=== PATIENT | female | born 1945 | race Caucasian/White ===

== ENCOUNTER 2018-05-29 12:46 | Emergency (ER) | payer MEDICARE, SELFPAY ==
[2018-05-29 12:47] VITALS: BP 183/89; PULSE 77; RESP 16; TEMP 37.1; O2SAT 99; BMI 27.1
[2018-05-29] MEDS: 0.9% Normal Saline 1,000 ML 1000 ML IV (13:33)
[2018-05-29] MEDS: Ondansetron 4 MG/2 ML Vial IV (13:33)
[2018-05-29 13:38] LABS: Anion Gap 7 (5-15); BUN 18 mg/dL (7-18); BUN/Creat Ratio 19.9 RATIO (10-20); Calcium,Total 9.1 mg/dL (8.5-10.1); Chloride 101 mmol/L (98-107); Creatinine, Serum 0.91 mg/dL (0.55-1.02); EST Glomerular Filtration Rate 65 mL/min (>60); Est Glom Filt Rate - Afr Amer 78 mL/min (>60); Estimated Creatinine Clearance 43.55 ml/min; Glucose 102 mg/dL (74-106); Potassium 3.4 mmol/L (3.5-5.1); Sodium Level 138 mmol/L (136-145)
[2018-05-29 14:46] VITALS: BP 189/90; PULSE 77; RESP 16; O2SAT 97
--- NOTE | 2018-05-29 14:47 | ED.RN ---
PT REPORTS BEING NERVOUS AND DID NOT TAKE BP MED THIS AM D/T VOMITING- DR ESPINOZA NOTIFIED.
--- NOTE | 2018-05-29 15:45 | ED.DCSUM_ITS ---
- ER Visit Summary Date of Service: 05/29/18 Chief Complaint: Patient presents with abdominal pain, nausea and vomiting and diarrhea that started 3 days ago History of Present Illness: The patient is a 73 F who presents with abdominal pain associated with nausea, vomiting diarrhea that started 3 days ago. She was seen in urgent care earlier today. She was treated with Zofran ODT. She presents because she has had persistent vomiting. She does complain of thirst, dry mouth and orthostatic symptoms. She denies fever or chills. She has had no ill contacts. She has not eaten anything that tasted tainted. She denies any ocular, visual auditory symptoms. She denies any cardiorespiratory symptoms. She does report decreased urine. She denies dysuria, frequency, urgency or hematuria. She denies flank pain. She denies any skin lesions. [place]. She requested short course of Paxil since she forgot her prescription at home. Physical Examination: Pleasant elderly woman. Vital signs are noted. HEENT exam is remarkable dry mucosa and tongue. Heart is regular without murmur, gallop or rub. S1 and S2 are normal. Lungs are clear to auscultation with good movement of air bilaterally. Abdomen soft with hypoactive bowel sounds otherwise unremarkable. She is alert oriented with a nonfocal neurologic exam. There is no skin lesions noted. There is no joint pain or swelling. Test Results: BMP is remarkable for a potassium of 3.4 which is insignificant. Emergency Department Course and Treatment: IV was established and she was treated with IV Zofran. She is passed p.o. challenge. Treatment Plan: Discharged to home with prescription for Paxil Disposition: Discharged to home with friend Impression: 1. Abdominal pain with nausea, vomiting diarrhea 2. Mild dehydration 3. Prescription refill This note was generated with [employer] dictation software. It may contain incorrect words, spelling, and punctuation that were not noted in review of the chart prior to signing ED Disposition - Plan for ED Patient: Disposition: Home or Assisted Living Chief Complaint: Nausea/Vomiting/Diarrhea Instructions: ED Vomiting Diarrhea Nonspecific Ad Prescriptions: Paroxetine HCl [Paxil] 30 mg PO DAILY #7 tab Referrals: [facility] Doctor,Out of [Primary Care Provider] -
[2018-05-29 15:51] VITALS: BP 167/92; PULSE 94; RESP 18; O2SAT 97
== END 2018-05-29 15:51 | disposition home or self-care (01) ==
PROVIDERS: Emergency Provider Emergency Medicine
DX: R10.9 Unspecified abdominal pain (principal); R11.2 Nausea with vomiting, unspecified; R19.7 Diarrhea, unspecified; E86.0 Dehydration; Z76.0 Encounter for issue of repeat prescription
CPT/HCPCS: 80048; 99283; J7030; J2405

== ENCOUNTER → 2020-10-08 11:01 | Outpatient (CLI) | payer MEDICARE, SELFPAY ==
[2020-10-08 12:47] LABS: Absolute Lymphocyte Count 1.68 X10^3/uL (0.83-4.51); Absolute Neutrophil Count 2.7 X10^3/uL (2.0-7.7); Basophil# 0.02 X10^3/uL; Basophil% 0.4 % (0-1); Eosinophil# 0.15 X10^3/uL; Hematocrit 38.5 % (37-47); Hemoglobin 12.3 g/dL (12.0-15.0); Lymphocyte # 1.68 X10^3/ul (4.0); Lymphocyte % 33.7 % (19-41); Mean Corp Hgb Conc 31.9 g/dL (32-36); Mean Corpuscular Hgb 29.8 pg (27.0-32.0); Mean Corpuscular Volume 93.2 fL (81-99); Mean Platelet Vol. 8.9 fl (6.2-12.0); Monocyte# 0.45 X10^3/uL; NRBC Flagged by Analyzer 0 % (0-5); Neutrophil # 2.67 X10^3/uL (2.7-7.7); Neutrophil % 53.7 % (47-70); Platelet Count 397 K/mm3 (150-450); RBC Distribution Width CV 13.3 % (11.6-14.6); RBC Distribution Width SD 45.1 fl (35.1-43.9); Red Blood Count 4.13 M/mm3 (4.2-5.4)
[2020-10-08 13:10] LABS: ALB/GLOB Ratio 0.9 RATIO (0.9-2.4); AST(SGOT) 21 U/L (15-37); Alanine Aminotransfer ALT/SGPT 35 U/L (13-56); Albumin, Serum 3.4 g/dL (3.2-5.0); Alkaline Phosphatase 51 U/L (45-117); Anion Gap 6 (5-15); BUN 18 mg/dL (7-18); BUN/Creat Ratio 18.9 RATIO (10-20); Calcium,Total 9.2 mg/dL (8.5-10.1); Chloride 107 mmol/L (98-107); Cholesterol 198 mg/dL (200); Creatinine, Serum 0.95 mg/dL (0.55-1.02); EST Glomerular Filtration Rate 61 mL/min (>60); Est Glom Filt Rate - Afr Amer 73 mL/min (>60); Globulin 3.9 g/dL (2.2-4.2); Glucose 78 mg/dL (74-106); High Density Lipoprotein 45 mg/dL; Potassium 3.7 mmol/L (3.5-5.1); Protein, Total 7.3 g/dL (6.4-8.2); Sodium Level 141 mmol/L (136-145); Triglycerides 180 mg/dL; Very Low Density Lipoprotein 36 mg/dL (5-40)
== END ==
PROVIDERS: PCP Family Medicine; Referring Provider Family Medicine; Visit Provider Family Medicine
DX: E78.1 Pure hyperglyceridemia (principal); I10 Essential (primary) hypertension
CPT/HCPCS: 36415; 80053; 80061; 84443; 85025

== ENCOUNTER → 2020-11-01 15:25 | Outpatient (CLI) | payer MEDICARE, SELFPAY ==
[2020-11-01 17:08] LABS: Absolute Lymphocyte Count 1.99 X10^3/uL (0.83-4.51); Absolute Neutrophil Count 3.9 X10^3/uL (2.0-7.7); Basophil# 0.02 X10^3/uL; Basophil% 0.3 % (0-1); Eosinophil# 0.27 X10^3/uL; Eosinophils% 3.9 % (0-5); Hematocrit 40.1 % (37-47); Hemoglobin 12.8 g/dL (12.0-15.0); Lymphocyte # 1.99 X10^3/ul (4.0); Lymphocyte % 29.1 % (19-41); Mean Corp Hgb Conc 31.9 g/dL (32-36); Mean Corpuscular Hgb 29.2 pg (27.0-32.0); Mean Corpuscular Volume 91.3 fL (81-99); Mean Platelet Vol. 8.7 fl (6.2-12.0); Monocyte# 0.69 X10^3/uL; Monocyte% 10.1 % (0-10); NRBC Flagged by Analyzer 0 % (0-5); Neutrophil # 3.86 X10^3/uL (2.7-7.7); Neutrophil % 56.5 % (47-70); Platelet Count 403 K/mm3 (150-450); RBC Distribution Width CV 13.2 % (11.6-14.6); RBC Distribution Width SD 44.6 fl (35.1-43.9); Red Blood Count 4.39 M/mm3 (4.2-5.4); White Blood Count 6.8 K/mm3 (4.4-11.0)
[2020-11-01 17:23] LABS: ALB/GLOB Ratio 0.9 RATIO (0.9-2.4); AST(SGOT) 22 U/L (15-37); Alanine Aminotransfer ALT/SGPT 38 U/L (13-56); Albumin, Serum 3.5 g/dL (3.2-5.0); Alkaline Phosphatase 52 U/L (45-117); Anion Gap 7 (5-15); BUN 32 mg/dL (7-18); Calcium,Total 9.3 mg/dL (8.5-10.1); Chloride 104 mmol/L (98-107); EST Glomerular Filtration Rate 57 mL/min (>60); Est Glom Filt Rate - Afr Amer 69 mL/min (>60); Glucose 91 mg/dL (74-106); Potassium 3.6 mmol/L (3.5-5.1); Protein, Total 7.5 g/dL (6.4-8.2); Sodium Level 141 mmol/L (136-145); Thyroid Stim Hormone (TSH) 0.99 uIU/mL (0.358-3.74)
[2020-11-02 10:04] LABS: Hepatitis C Antibody Non-Reactive (Nonreactive); Vitamin D,25 Hydroxy 23.9 ng/mL
== END ==
PROVIDERS: PCP Family Medicine; Visit Provider Family Medicine Geriatric Medicine
DX: E55.9 Vitamin D deficiency, unspecified (principal); I10 Essential (primary) hypertension; Z13.89 Encounter for screening for other disorder
CPT/HCPCS: 36415; 80053; 82306; 84443; 85025; 86803

== ENCOUNTER → 2020-12-09 16:39 | Outpatient (CLI) | payer MEDICARE, SELFPAY ==
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
[2020-12-09 17:18] LABS: Absolute Lymphocyte Count 1.88 X10^3/uL (0.83-4.51); Basophil# 0.03 X10^3/uL; Basophil% 0.4 % (0-1); Eosinophil# 0.27 X10^3/uL; Hemoglobin 13.6 g/dL (12.0-15.0); Lymphocyte # 1.88 X10^3/ul (4.0); Lymphocyte % 27.5 % (19-41); Mean Corp Hgb Conc 30.9 g/dL (32-36); Mean Corpuscular Volume 90.7 fL (81-99); Mean Platelet Vol. 8.4 fl (6.2-12.0); Monocyte# 0.64 X10^3/uL; Monocyte% 9.4 % (0-10); NRBC Flagged by Analyzer 0 % (0-5); Neutrophil % 58.6 % (47-70); Platelet Count 364 K/mm3 (150-450); RBC Distribution Width CV 12.9 % (11.6-14.6); RBC Distribution Width SD 42.9 fl (35.1-43.9); Red Blood Count 4.85 M/mm3 (4.2-5.4); White Blood Count 6.8 K/mm3 (4.4-11.0)
[2020-12-09 17:26] LABS: ALB/GLOB Ratio 0.8 RATIO (0.9-2.4); AST(SGOT) 19 U/L (15-37); Alanine Aminotransfer ALT/SGPT 32 U/L (13-56); Albumin, Serum 3.7 g/dL (3.2-5.0); Alkaline Phosphatase 78 U/L (45-117); Anion Gap 5 (5-15); BUN 17 mg/dL (7-18); BUN/Creat Ratio 19.7 RATIO (10-20); Calcium,Total 9.5 mg/dL (8.5-10.1); Chloride 104 mmol/L (98-107); Creatinine, Serum 0.86 mg/dL (0.55-1.02); EST Glomerular Filtration Rate 68 mL/min (>60); Est Glom Filt Rate - Afr Amer 82 mL/min (>60); Globulin 4.4 g/dL (2.2-4.2); Glucose 94 mg/dL (74-106); Potassium 3.6 mmol/L (3.5-5.1); Protein, Total 8.1 g/dL (6.4-8.2); Sodium Level 138 mmol/L (136-145)
== END ==
LOC: POLAB3 16:40 → RAD 16:54
PROVIDERS: PCP Family Medicine Geriatric Medicine; Referring Provider Family Medicine Geriatric Medicine; Visit Provider Family Medicine Geriatric Medicine
DX: K56.41 Fecal impaction (principal); R11.0 Nausea; N39.0 Urinary tract infection, site not specified
CPT/HCPCS: 36415; 74019; 80053; 85025; 87086

== ENCOUNTER → 2021-03-30 | Outpatient (CLI) | payer MEDICARE, SELFPAY | END | disposition home or self-care (01) | LOC: POLAB3 15:38 → LABSPEC 15:39 | PROVIDERS: PCP Family Medicine Geriatric Medicine; Visit Provider Family Medicine Geriatric Medicine | DX: N39.0 Urinary tract infection, site not specified (principal) | CPT/HCPCS: 87086; 87088 ==

== ENCOUNTER → 2021-05-03 11:55 | Outpatient (CLI) | payer MEDICARE, SELFPAY ==
[2021-05-03 17:05] LABS: Absolute Lymphocyte Count 2.33 X10^3/uL (0.83-4.51); Absolute Neutrophil Count 8.5 X10^3/uL (2.0-7.7); Basophil# 0.04 X10^3/uL; Basophil% 0.3 % (0-1); Eosinophil# 0.07 X10^3/uL; Eosinophils% 0.6 % (0-5); Hematocrit 40.4 % (37-47); Hemoglobin 13.1 g/dL (12.0-15.0); Lymphocyte # 2.33 X10^3/ul (0.83-4.51); Lymphocyte % 19.7 % (19-41); Mean Corp Hgb Conc 32.4 g/dL (32-36); Mean Corpuscular Hgb 29.8 pg (27.0-32.0); Mean Corpuscular Volume 91.8 fL (81-99); Mean Platelet Vol. 8.8 fl (6.2-12.0); Monocyte# 0.81 X10^3/uL; Monocyte% 6.8 % (0-10); NRBC Flagged by Analyzer 0 % (0-5); Neutrophil # 8.54 X10^3/uL (2.7-7.7); Neutrophil % 72.1 % (47-70); Platelet Count 392 K/mm3 (150-450); RBC Distribution Width CV 13.7 % (11.6-14.6); RBC Distribution Width SD 46.5 fl (35.1-43.9); White Blood Count 11.9 K/mm3 (4.4-11.0)
[2021-05-03 17:20] LABS: Vitamin D,25 Hydroxy 28.2 ng/mL
[2021-05-03 17:25] LABS: ALB/GLOB Ratio 0.8 RATIO (0.9-2.4); AST(SGOT) 20 U/L (15-37); Alanine Aminotransfer ALT/SGPT 30 U/L (13-56); Albumin, Serum 3.4 g/dL (3.2-5.0); Alkaline Phosphatase 69 U/L (45-117); Anion Gap 11 (5-15); BUN 32 mg/dL (7-18); BUN/Creat Ratio 28.8 RATIO (10-20); Calcium,Total 8.9 mg/dL (8.5-10.1); Chloride 105 mmol/L (98-107); Cholesterol 257 mg/dL (200); Creatinine, Serum 1.11 mg/dL (0.55-1.02); EST Glomerular Filtration Rate 51 mL/min (>60); Est Glom Filt Rate - Afr Amer 61 mL/min (>60); Glucose 103 mg/dL (74-106); High Density Lipoprotein 50 mg/dL; Protein, Total 7.4 g/dL (6.4-8.2); Sodium Level 140 mmol/L (136-145); Thyroid Stim Hormone (TSH) 0.93 uIU/mL (0.358-3.74); Triglycerides 255 mg/dL; Very Low Density Lipoprotein 51 mg/dL (5-40)
== END ==
PROVIDERS: PCP Family Medicine Geriatric Medicine; Visit Provider Family Medicine Geriatric Medicine
DX: E55.9 Vitamin D deficiency, unspecified (principal); I10 Essential (primary) hypertension
CPT/HCPCS: 36415; 80053; 80061; 82306; 84443; 85025

== ENCOUNTER → 2021-06-20 10:22 | Outpatient (CLI) | payer MEDICARE, SELFPAY | PROVIDERS: PCP Family Medicine Geriatric Medicine; Referring Provider Family Medicine Geriatric Medicine; Visit Provider Family Medicine Geriatric Medicine | DX: R06.89 Other abnormalities of breathing (principal) | CPT/HCPCS: 87635; 87804; 87807; C9803; U0005; U0003 ==

== ENCOUNTER → 2021-08-18 12:51 | Outpatient (CLI) | payer MEDICARE, SELFPAY | PROVIDERS: PCP Family Medicine Geriatric Medicine; Referring Provider Family Medicine Geriatric Medicine; Visit Provider Family Medicine Geriatric Medicine | DX: R68.83 Chills (without fever) (principal) | CPT/HCPCS: 87635; 87804; 87807; C9803; U0005; U0003 ==

== ENCOUNTER → 2021-09-26 10:09 | Outpatient (CLI) | payer MEDICARE, SELFPAY ==
[2021-09-26 12:05] LABS: Absolute Lymphocyte Count 1.89 X10^3/uL (0.83-4.51); Absolute Neutrophil Count 4.8 X10^3/uL (2.0-7.7); Basophil# 0.03 X10^3/uL; Basophil% 0.4 % (0-1); Eosinophil# 0.07 X10^3/uL; Eosinophils% 0.9 % (0-5); Hematocrit 39.4 % (37-47); Hemoglobin 13.1 g/dL (12.0-15.0); Lymphocyte # 1.89 X10^3/ul (0.83-4.51); Mean Corp Hgb Conc 33.2 g/dL (32-36); Mean Corpuscular Hgb 30.6 pg (27.0-32.0); Mean Corpuscular Volume 92.1 fL (81-99); Mean Platelet Vol. 8.5 fl (6.2-12.0); Monocyte# 0.67 X10^3/uL; Monocyte% 8.9 % (0-10); NRBC Flagged by Analyzer 0 % (0-5); Neutrophil # 4.82 X10^3/uL (2.7-7.7); Neutrophil % 63.6 % (47-70); Platelet Count 362 K/mm3 (150-450); RBC Distribution Width CV 13.4 % (11.6-14.6); RBC Distribution Width SD 45.3 fl (35.1-43.9); Red Blood Count 4.28 M/mm3 (4.2-5.4); White Blood Count 7.6 K/mm3 (4.4-11.0)
[2021-09-26 12:12] LABS: ALB/GLOB Ratio 0.7 RATIO (0.9-2.4); AST(SGOT) 17 U/L (15-37); Alanine Aminotransfer ALT/SGPT 29 U/L (13-56); Alkaline Phosphatase 85 U/L (45-117); Anion Gap 4 (5-15); BUN 24 mg/dL (7-18); BUN/Creat Ratio 25.1 RATIO (10-20); Calcium,Total 9.2 mg/dL (8.5-10.1); Chloride 102 mmol/L (98-107); Cholesterol 261 mg/dL (200); Creatinine, Serum 0.96 mg/dL (0.55-1.02); EST Glomerular Filtration Rate 60 mL/min (>60); Est Glom Filt Rate - Afr Amer 73 mL/min (>60); Globulin 4.3 g/dL (2.2-4.2); Glucose 96 mg/dL (74-106); High Density Lipoprotein 46 mg/dL; Potassium 3.5 mmol/L (3.5-5.1); Protein, Total 7.3 g/dL (6.4-8.2); Sodium Level 137 mmol/L (136-145); Triglycerides 202 mg/dL; Very Low Density Lipoprotein 40 mg/dL (5-40)
== END ==
PROVIDERS: PCP Internal Medicine; Referring Provider Internal Medicine; Visit Provider Internal Medicine
DX: I10 Essential (primary) hypertension (principal)
CPT/HCPCS: 36415; 80053; 80061; 85025

== ENCOUNTER 2021-11-16 10:45 | Outpatient (CLI) | payer MEDICARE, SELFPAY | END 2021-11-16 23:59 | disposition short-term general hospital (02) | LOC: LABSPEC 10:46 | PROVIDERS: PCP Internal Medicine; Referring Provider Nurse Practitioner Family; Visit Provider Nurse Practitioner Family | DX: J06.9 Acute upper respiratory infection, unspecified (principal) | CPT/HCPCS: 87635; U0003; U0005 ==

== ENCOUNTER → 2022-07-11 | Outpatient (CLI) | payer MEDICARE, SELFPAY ==
[2022-07-11 15:17] LABS: Vitamin D,25 Hydroxy 38.6 ng/mL
[2022-07-11 15:20] LABS: BUN 23 mg/dL (7-18); EST Glomerular Filtration Rate 57 mL/min (>60); Glucose 113 mg/dL (74-106)
[2022-07-11 15:21] LABS: Anion Gap 10 (5-15); Calcium,Total 8.9 mg/dL (8.5-10.1); Chloride 99 mmol/L (98-107); Cholesterol 251 mg/dL (200); Est Glom Filt Rate - Afr Amer 69 mL/min (>60); High Density Lipoprotein 37 mg/dL; Potassium 3.6 mmol/L (3.5-5.1); Sodium Level 137 mmol/L (136-145); Triglycerides 346 mg/dL; Very Low Density Lipoprotein 69 mg/dL (5-40)
== END | disposition home or self-care (01) ==
LOC: MFPLAB 11:30
PROVIDERS: PCP Internal Medicine; Visit Provider Family Medicine
DX: Z00.00 Encounter for general adult medical examination without abnormal findings (principal); E55.9 Vitamin D deficiency, unspecified
CPT/HCPCS: 36415; 80048; 80061; 82306

== ENCOUNTER 2022-08-08 16:40 | Emergency (ER) | payer OTHER, MEDICARE, SELFPAY ==
[2022-08-08 16:44] VITALS: BP 201/82; PULSE 72; RESP 18; TEMP 36.4; O2SAT 97; BMI 27.8
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
--- NOTE | 2022-08-08 17:29 | CM.ED ---
SANIYA noted that patient had no PCP per tracker. SANIYA went into room and introduced self. Patient voices her PCP is [place]. No other issues or concerns voiced. Swetha GUIDRY
[2022-08-08 18:02] VITALS: BP 186/78; PULSE 72; RESP 16; O2SAT 97
== END 2022-08-08 18:31 | disposition home or self-care (01) ==
PROVIDERS: Emergency Provider Emergency Medicine; Visit Provider Emergency Medicine
DX: S22.20XA Unspecified fracture of sternum, initial encounter for closed fracture (principal); E78.5 Hyperlipidemia, unspecified; V43.62XA Car passenger injured in collision with other type car in traffic accident, initial encounter
CPT/HCPCS: 71250; 93005; 99284

== ENCOUNTER → 2022-09-15 | Outpatient (CLI) | payer MEDICARE, SELFPAY ==
--- NOTE | 2022-09-15 15:41 | RAD_ITS ---
STUDY: X-RAY - SACRUM/COCCYX REASON FOR EXAM: Female, 77 years old. Sacrococcygeal pain TECHNIQUE: 3 view(s) of the sacrum and coccyx were obtained. COMPARISON: None. FINDINGS: Normal bilateral sacroiliac joints. Normal visualized sacral ala and fused sacral bodies. Normal sacrococcygeal junction with a normal angulation. Normal coccygeal segments. The presacral soft tissue structures are unremarkable. RAD/Sacrum-Coccyx min 2 Views IMPRESSION: Normal x-rays of the sacrum and coccyx. If pain persists bone scan or MRI recommended to exclude radiographically occult fracture Electronically Signed: Jeremy De Luna MD at 22:36 EST ,
== END | disposition home or self-care (01) ==
LOC: MTRAD 15:40
PROVIDERS: PCP Family Medicine; Referring Provider Family Medicine; Visit Provider Family Medicine
DX: M53.3 Sacrococcygeal disorders, not elsewhere classified (principal)
CPT/HCPCS: 72220

== ENCOUNTER → 2022-12-21 | Outpatient (CLI) | payer MEDICARE, SELFPAY ==
[2022-12-21 17:12] LABS: Absolute Lymphocyte Count 2.01 X10^3/uL (0.83-4.51); Absolute Neutrophil Count 4.5 X10^3/uL (2.0-7.7); Basophil# 0.03 X10^3/uL; Basophil% 0.4 % (0-1); Eosinophil# 0.07 X10^3/uL; Eosinophils% 0.9 % (0-5); Hematocrit 41.1 % (37-47); Hemoglobin 13.7 g/dL (12.0-15.0); Lymphocyte # 2.01 X10^3/ul (0.83-4.51); Lymphocyte % 27.1 % (19-41); Mean Corp Hgb Conc 33.3 g/dL (32-36); Mean Corpuscular Volume 90.1 fL (81-99); Monocyte# 0.77 X10^3/uL; Monocyte% 10.4 % (0-10); NRBC Flagged by Analyzer 0 % (0-5); Neutrophil % 60.8 % (47-70); Platelet Count 403 K/mm3 (150-450); RBC Distribution Width CV 13.2 % (11.6-14.6); RBC Distribution Width SD 43.6 fl (35.1-43.9); Red Blood Count 4.56 M/mm3 (4.2-5.4); White Blood Count 7.4 K/mm3 (4.4-11.0)
[2022-12-21 17:32] LABS: Vitamin D,25 Hydroxy 46.6 ng/mL
[2022-12-21 17:39] LABS: ALB/GLOB Ratio 0.9 RATIO (0.9-2.4); AST(SGOT) 30 U/L (15-37); Alanine Aminotransfer ALT/SGPT 43 U/L (13-56); Albumin, Serum 3.6 g/dL (3.2-5.0); Alkaline Phosphatase 62 U/L (45-117); Anion Gap 7 (5-15); BUN 28 mg/dL (7-18); BUN/Creat Ratio 27.2 RATIO (10-20); Calcium,Total 9.6 mg/dL (8.5-10.1); Chloride 106 mmol/L (98-107); Cholesterol 214 mg/dL (200); Creatinine, Serum 1.03 mg/dL (0.55-1.02); EST Glomerular Filtration Rate 55 mL/min (>60); Est Glom Filt Rate - Afr Amer 67 mL/min (>60); Globulin 4.1 g/dL (2.2-4.2); Glucose 118 mg/dL (74-106); High Density Lipoprotein 43 mg/dL; Potassium 3.6 mmol/L (3.5-5.1); Protein, Total 7.7 g/dL (6.4-8.2); Sodium Level 141 mmol/L (136-145); Thyroid Stim Hormone (TSH) 1.06 uIU/mL (0.358-3.74); Triglycerides 173 mg/dL; Very Low Density Lipoprotein 35 mg/dL (5-40)
== END | disposition home or self-care (01) ==
PROVIDERS: PCP Family Medicine; Visit Provider Family Medicine Geriatric Medicine
DX: R53.83 Other fatigue (principal); E78.5 Hyperlipidemia, unspecified; E55.9 Vitamin D deficiency, unspecified
CPT/HCPCS: 36415; 80053; 80061; 82306; 84443; 85025

== ENCOUNTER → 2022-12-28 | Outpatient (CLI) | payer MEDICARE, SELFPAY ==
[2022-12-28 12:59] LABS: Syphilis Antibodies Non-reactive; Vitamin B12 1058 pg/mL (211-911)
== END | disposition home or self-care (01) ==
LOC: POLAB3 11:17
PROVIDERS: PCP Family Medicine; Visit Provider Family Medicine Geriatric Medicine
DX: E53.8 Deficiency of other specified B group vitamins (principal); R41.3 Other amnesia
CPT/HCPCS: 36415; 82607; 82746; 86780

== ENCOUNTER → 2023-05-23 | Outpatient (CLI) | payer MEDICARE, SELFPAY ==
[2023-05-23 10:44] LABS: Anion Gap 5 (5-15); BUN 26 mg/dL (7-18); BUN/Creat Ratio 31.1 RATIO (10-20); Chloride 103 mmol/L (98-107); Cholesterol 229 mg/dL (200); Creatinine, Serum 0.84 mg/dL (0.55-1.02); EST Glomerular Filtration Rate 70 mL/min (>60); Est Glom Filt Rate - Afr Amer 85 mL/min (>60); Glucose 99 mg/dL (74-106); High Density Lipoprotein 39 mg/dL; Potassium 3.8 mmol/L (3.5-5.1); Sodium Level 138 mmol/L (136-145); Triglycerides 263 mg/dL; Very Low Density Lipoprotein 53 mg/dL (5-40)
== END | disposition home or self-care (01) ==
LOC: MTLAB 09:15
PROVIDERS: PCP Family Medicine; Referring Provider Family Medicine; Visit Provider Family Medicine
DX: I10 Essential (primary) hypertension (principal)
CPT/HCPCS: 36415; 80048; 80061

== ENCOUNTER 2023-05-26 11:48 | Emergency (ER) | payer MEDICARE, SELFPAY ==
[2023-05-26 11:50] VITALS: BP 169/148; PULSE 84; RESP 14; TEMP 36; O2SAT 98; BMI 29.3
[2023-05-26 12:05] VITALS: BP 138/78; PULSE 68; RESP 16; TEMP 36.1; O2SAT 98
--- NOTE | 2023-05-26 12:14 | EKG12_ITS ---
Test Reason : Blood Pressure : / mmHG Vent. Rate : 071 BPM Atrial Rate : 071 BPM P-R Int : 158 ms QRS Dur : 082 ms QT Int : 368 ms P-R-T Axes : 057 045 104 degrees QTc Int : 399 ms Normal sinus rhythm ST & T wave abnormality, consider lateral ischemia Abnormal ECG Confirmed by ZOEY RICE, CORINNE ([id number]), newspaper managing editor GUERDA WALLACE ([id number]) on 05/28/2023 12:14:12 PM Referred By: Confirmed By:CORINNE GREER MD
--- NOTE | 2023-05-26 12:20 | NURSING ---
NO OLD EKGS
--- NOTE | 2023-05-26 12:21 | ED.VIS.GI ---
HPI HPI - GI History of Present Illness Chief Complaint: Abd Pain Narrative Narrative: 78-year-old female presenting with nausea diarrhea. She states its been really bad over the last 48 hours. She describes diffuse abdominal cramping. She has not a fever but she states she feels hot. Patient denies chest pain but is having epigastric pain in addition to the other pains in her abdomen. No cough or shortness of breath. He states he has no sick contacts in the household. She does have history of GERD and gastritis. PFSH PFS Medical History Bilateral impacted cerumen Cataracts, bilateral Health care maintenance Hyperlipidemia Hypertension Obesity (BMI 30.0-34.9) URI (upper respiratory infection) Urinary incontinence Home Medications omeprazole 40 mg capsule,delayed release 40 mg PO DAILY 09/26/21 [History Last Taken Unknown] lisinopril 40 mg tablet 40 mg PO DAILY #90 tabs 01/18/22 [Rx Last Taken Unknown] paroxetine HCl 40 mg tablet 40 mg PO DAILY #60 tabs 01/23/22 [Rx Last Taken Unknown] triamterene 75 mg-hydrochlorothiazide 50 mg tablet 1 tab PO DAILY #90 tabs 05/10/22 [Rx Last Taken Unknown] ondansetron 4 mg disintegrating tablet 4 mg PO Q8H PRN PRN Nausea #14 tabs 05/26/23 [Rx Last Taken Unknown] Allergy/AdvReac Type Severity Reaction Status Date / Time No Known Allergies Allergy Verified 05/26/23 11:50 Family History Other CVA (cerebral vascular accident) Colon cancer Diabetes Heart disease Surgical History H/O: hysterectomy Social History Smoking Status: Never smoker alcohol intake: never substance use type: does not use ROS ROS ED Review of Systems ROS Unobtainable: Denies due to encephalopathy Constitutional Constitutional ED: Denies chills or fever(s) ENT ENT ED: Denies ear pain or rhinorrhea Cardiovascular Cardiovascular: Denies chest pain or palpitations Respiratory/Chest Respiratory/Chest: Denies cough or dyspnea Gastrointestinal Gastrointestinal: Reports abdominal pain, diarrhea, nausea and vomiting Genitourinary Genitourinary ED: Denies dysuria or hematuria Musculoskeletal Musculoskeletal: Denies arthralgias or back pain Integumentary Denies abscess Neurologic Neurologic: Reports headache(s); Denies paresthesias Psychiatric Psychiatric: Denies anxiety or depression EXAM Physical Exam Const Vital Signs: 05/26/23 11:50 05/26/23 12:05 05/26/23 13:40 Temperature 96.8 F L 97 F L 97.8 F Temperature Source Temporal Oral Oral Pulse Rate 84 68 80 Respiratory Rate 14 16 16 Blood Pressure 169/148 H 138/78 H 187/80 H Blood Pressure Mean 155 98 115 Pulse Ox 98 98 98 Oxygen Delivery Method Room Air Room Air Room Air Positive well nourished General Appearance ED: NAD HEENT Reports moist mucous membranes Eyes PERRL Resp normal respiratory effort and clear to auscultation bilaterally Auscultation: Negative for rales, rhonchi or wheezes Cardio regular rate and regular rhythm GI Palpation: tender epigastric and periumbilical; Negative for guarding Neuro CN's II-XII intact bilaterally Sensorium / Orientation: alert Motor Exam: strength 5/5 throughout Psych mental status grossly normal and thought process normal Skin no wounds MDM MDM MDM Narrative Medical decision making narrative: Patient presenting with nausea, vomiting, diarrhea. Differential includes gastritis, GERD, colitis, diverticulitis, UTI, pyelonephritis, pancreatitis. CBC was obtained to assess white blood cell count, hemoglobin, platelets. CMP to assess liver function, renal function, electrolytes. Lipase to assess for pancreatitis. EKG and high-sensitivity troponin to assess for ischemia or dysrhythmia. Chest x-ray to rule out pneumonia. Urinalysis to assess for UTI. Patient medicated with 4 mg of Zofran and a liter normal saline. EKG was obtained and shows normal sinus rhythm with ventricular rate of 71 bpm without sign of ischemia or ectopy. High-sensitivity troponin 12. CBC shows normal white blood cell count 8.9. Hemoglobin hematocrit are normal. Platelets normal. Renal function and electrolytes are normal with exception of a potassium of 3.1. LFTs are normal. Patient reevaluated at 1 PM she is feeling improved. Will try p.o. challenge and oral potassium supplementation. I do not believe she needs a CT scan. Patient did well with p.o. challenge. At this point I feel she can be discharged home with Zoan. She was given options on bland diet and advance as tolerated. She is to follow-up with her PCP to ensure resolution. Impression: 1. Abdominal pain 2. Nausea/vomiting 3. Diarrhea Lab Data Labs: Laboratory Results - last 24 hr 05/26/23 05/26/23 12:30 12:45 WBC 8.9 RBC 4.71 Hgb 14.0 Hct 42.5 MCV 90.2 MCH 29.7 MCHC 32.9 RDW Std Deviation 45.0 H RDW Coeff of [place] 13.5 Plt Count 334 MPV 8.3 Immature Gran % (Auto) 0.400 Neut % (Auto) 75.6 H Lymph % (Auto) 17.5 L [place] % (Auto) 5.5 Eos % (Auto) 0.8 Baso % (Auto) 0.2 Absolute Neuts (auto) 6.7 Absolute Lymphs (auto) 1.56 Nucleated RBC % 0 Sodium 138 Potassium 3.1 L Chloride 103 Carbon Dioxide 29.0 Anion Gap 6 BUN 11 Creatinine 0.86 Estim Creat Clear Calc 42.64 Est GFR (MDRD) Af Amer 83 Est GFR (MDRD) Non-Af 68 BUN/Creatinine Ratio 12.9 Glucose 119 H Calcium 8.9 Total Bilirubin 0.30 AST 20 ALT 28 Alkaline Phosphatase 84 Troponin I High Sens 12 Total Protein 7.7 Albumin 3.5 Globulin 4.2 Albumin/Globulin Ratio 0.8 L Urine Color Yellow Urine Clarity Clear Urine pH 7.0 Ur Specific [place] 1.015 Urine Protein 15 H Urine Glucose (UA) Normal Urine Ketones Negative Urine Occult Blood 50 H Urine Nitrite Negative Urine Bilirubin Negative Urine Urobilinogen Normal Ur Leukocyte Esterase Negative Urine RBC 0-5 SEEN Urine WBC 0 SEEN Ur Squamous Epith Cells 0 SEEN Urine Bacteria 0 SEEN Urine Mucus 0 SEEN Discharge Plan Triage Chief Complaint: Abd Pain ED Provider: Albert Jones Dx/Rx/DC Orders Instructions: ED Abdominal Pain Unkn Cause Fem, ED Vomiting (Adult) Prescriptions: New ondansetron 4 mg tablet,disintegrating 4 mg PO Q8H PRN PRN (Reason: Nausea) Qty: 14 0RF No Action omeprazole 40 mg capsule,delayed release(DR/EC) 40 mg PO DAILY lisinopril 40 mg tablet 40 mg PO DAILY Qty: 90 1RF paroxetine HCl 40 mg tablet 40 mg PO DAILY Qty: 60 0RF triamterene-hydrochlorothiazid 75-50 mg tablet 1 tab PO DAILY Qty: 90 1RF Primary Care Provider: Babatunde Pavon Referrals: Babatunde Pavon MD [Primary Care Provider] - Disposition Disposition: Home, Self Care
[2023-05-26] MEDS: 0.9% Normal Saline 1,000 ML 1000 ML IV (12:27)
[2023-05-26] MEDS: Ondansetron 4 MG/2 ML Vial IV (12:28)
[2023-05-26 12:47] LABS: Absolute Lymphocyte Count 1.56 X10^3/uL (0.83-4.51); Absolute Neutrophil Count 6.7 X10^3/uL (2.0-7.7); Basophil# 0.02 X10^3/uL; Basophil% 0.2 % (0-1); Eosinophil# 0.07 X10^3/uL; Eosinophils% 0.8 % (0-5); Hematocrit 42.5 % (37-47); Lymphocyte # 1.56 X10^3/ul (0.83-4.51); Lymphocyte % 17.5 % (19-41); Mean Corp Hgb Conc 32.9 g/dL (32-36); Mean Corpuscular Hgb 29.7 pg (27.0-32.0); Mean Corpuscular Volume 90.2 fL (81-99); Mean Platelet Vol. 8.3 fl (6.2-12.0); Monocyte# 0.49 X10^3/uL; Monocyte% 5.5 % (0-10); NRBC Flagged by Analyzer 0 % (0-5); Neutrophil # 6.72 X10^3/uL (2.7-7.7); Neutrophil % 75.6 % (47-70); Platelet Count 334 K/mm3 (150-450); RBC Distribution Width CV 13.5 % (11.6-14.6); Red Blood Count 4.71 M/mm3 (4.2-5.4); White Blood Count 8.9 K/mm3 (4.4-11.0)
[2023-05-26 12:55] LABS: Bacteria 0 SEEN /hpf (None Seen); Mucous, Urine 0 SEEN /hpf (<or=2+); Squamous Epithelial Cells - UA 0 SEEN /hpf (5-10); White Blood Cells 0 SEEN /hpf (0-5)
[2023-05-26 13:01] LABS: ALB/GLOB Ratio 0.8 RATIO (0.9-2.4); AST(SGOT) 20 U/L (15-37); Alanine Aminotransfer ALT/SGPT 28 U/L (13-56); Albumin, Serum 3.5 g/dL (3.2-5.0); Alkaline Phosphatase 84 U/L (45-117); Anion Gap 6 (5-15); BUN 11 mg/dL (7-18); BUN/Creat Ratio 12.9 RATIO (10-20); Calcium,Total 8.9 mg/dL (8.5-10.1); Chloride 103 mmol/L (98-107); Creatinine, Serum 0.86 mg/dL (0.55-1.02); EST Glomerular Filtration Rate 68 mL/min (>60); Est Glom Filt Rate - Afr Amer 83 mL/min (>60); Estimated Creatinine Clearance 42.64 ml/min; Globulin 4.2 g/dL (2.2-4.2); Glucose 119 mg/dL (74-106); Potassium 3.1 mmol/L (3.5-5.1); Protein, Total 7.7 g/dL (6.4-8.2); Sodium Level 138 mmol/L (136-145); Troponin-I HS 12 pg/mL (3.0-54.0)
[2023-05-26 13:04] LABS: Color, Urine Yellow (Yellow); Glucose, Dipstick Normal (Normal); Ketone-Dipstick Negative (Negative); Leukocyte Esterase-Dipstick Negative /ul (Negative); Nitrite-Dipstick Negative (Negative); Occult Blood-Urine 50 /ul (Negative); Protein-Dipstick 15 mg/dl (Negative); Specific Gravity, Urine 1.015 (1.002-1.030); Urine Bilirubin Dipstick Negative (Negative); Urine Clarity Clear (Clear); Urine Urobilinogen Normal (Normal)
[2023-05-26 13:13] LABS: Red Blood Cells-Urine 0-5 SEEN /hpf (0-5)
--- NOTE | 2023-05-26 13:34 | ED.RN ---
Patient up and ambulatory to bathroom, gait steady
[2023-05-26] MEDS: Potassium Chloride Oral Tablet 20 MEQ 40 MEQ PO (13:37)
[2023-05-26 13:40] VITALS: BP 187/80; PULSE 80; RESP 16; TEMP 36.6; O2SAT 98
--- NOTE | 2023-05-26 13:56 | ED.RN ---
IV removed intact. no bleeding at site. Ambulatory from dept., gait steady.
[2023-05-26] MEDS: proMETHazine 25 MG Tablet 12.5 MG PO (15:10)
== END 2023-05-26 15:18 | disposition home or self-care (01) ==
PROVIDERS: Emergency Provider Student in an Organized Health Care Education/Training Program; PCP Family Medicine; Visit Provider Student in an Organized Health Care Education/Training Program
DX: R10.9 Unspecified abdominal pain (principal); R11.2 Nausea with vomiting, unspecified; I10 Essential (primary) hypertension; R19.7 Diarrhea, unspecified; E78.5 Hyperlipidemia, unspecified; R51.9 Headache, unspecified
CPT/HCPCS: 80053; 81001; 84484; 85025; 93005; 96361; 96374; 99283; J7030; A4216; J2405

== ENCOUNTER → 2023-12-31 | Outpatient (CLI) | payer MEDICARE, SELFPAY ==
--- OUTSIDE RECORDS SUMMARY | 2023-12-31 09:52 | XMS RPT_ITS | CCD ---
Author Name Unknown Address [address] [place] [address] [address] [place] [address] Organization [facility] Results Test Name Value Interpretation Reference Range Facil ity Summary Purpose Family History No Family History Records Found Advance Directives No Advanced Directives Records Found Additional Source Comments INFORMATION SOURCE (unrecogn ized section and content) FOR RECORDS PERTAINING TO PATIENTS WHO ARE OR HAVE BEEN ENROLLED IN A CHEMICAL DEPENDENCY/SUBSTANCEABUSE PROGRAM, SOME INFORMATION MAY BE OMITTED. This clinical summary was aggregated from multiple sources. Caution should be exercised in using it in the provision of clinical care. This summary normalizes information from multiple sources, and as a consequence, information in this document may materially change the coding, format and clinical context of patient data. In addition, data may be omitted in some cases. CLINICAL DECISIONS SHOULD BE BASED ON THE PRIMARY CLINICAL RECORDS. [employer] provides no warranty or guarantee of the accuracy or completeness of information in this document.
[2023-12-31 10:11] LABS: Absolute Lymphocyte Count 1.99 X10^3/uL (0.83-4.51); Absolute Neutrophil Count 4.3 X10^3/uL (2.0-7.7); Basophil# 0.02 X10^3/uL; Basophil% 0.3 % (0-1); Eosinophil# 0.09 X10^3/uL; Eosinophils% 1.3 % (0-5); Hematocrit 43.4 % (37-47); Hemoglobin 14.6 g/dL (12.0-15.0); Lymphocyte # 1.99 X10^3/ul (0.83-4.51); Lymphocyte % 28.3 % (19-41); Mean Corp Hgb Conc 33.6 g/dL (32-36); Mean Corpuscular Hgb 30.2 pg (27.0-32.0); Mean Corpuscular Volume 89.7 fL (81-99); Mean Platelet Vol. 8.5 fl (6.2-12.0); Monocyte# 0.57 X10^3/uL; Monocyte% 8.1 % (0-10); NRBC Flagged by Analyzer 0 % (0-5); Neutrophil # 4.34 X10^3/uL (2.7-7.7); Neutrophil % 61.7 % (47-70); Platelet Count 336 K/mm3 (150-450); RBC Distribution Width CV 13.2 % (11.6-14.6); RBC Distribution Width SD 43.5 fl (35.1-43.9); Red Blood Count 4.84 M/mm3 (4.2-5.4)
[2023-12-31 10:32] LABS: Vitamin D,25 Hydroxy 49.5 ng/mL
[2023-12-31 10:38] LABS: ALB/GLOB Ratio 0.9 RATIO (0.9-2.4); AST(SGOT) 22 U/L (15-37); Alanine Aminotransfer ALT/SGPT 27 U/L (13-56); Albumin, Serum 3.6 g/dL (3.2-5.0); Alkaline Phosphatase 81 U/L (45-117); Anion Gap 5 (5-15); BUN 19 mg/dL (7-18); BUN/Creat Ratio 19.6 RATIO (10-20); Calcium,Total 10.1 mg/dL (8.5-10.1); Chloride 105 mmol/L (98-107); Cholesterol 275 mg/dL (200); Creatinine, Serum 0.97 mg/dL (0.55-1.02); EST Glomerular Filtration Rate 59 mL/min (>60); Est Glom Filt Rate - Afr Amer 71 mL/min (>60); Globulin 4.2 g/dL (2.2-4.2); Glucose 121 mg/dL (74-106); High Density Lipoprotein 40 mg/dL; Potassium 3.6 mmol/L (3.5-5.1); Protein, Total 7.8 g/dL (6.4-8.2); Sodium Level 138 mmol/L (136-145); Thyroid Stim Hormone (TSH) 3.36 uIU/mL (0.358-3.74); Triglycerides 274 mg/dL; Very Low Density Lipoprotein 55 mg/dL (5-40)
== END | disposition home or self-care (01) ==
LOC: POLAB3 09:19
PROVIDERS: PCP Family Medicine; Visit Provider Family Medicine Geriatric Medicine
DX: I10 Essential (primary) hypertension (principal); E78.5 Hyperlipidemia, unspecified; E55.9 Vitamin D deficiency, unspecified
CPT/HCPCS: 36415; 80053; 80061; 82306; 84443; 85025

== ENCOUNTER → 2024-01-07 | Outpatient (CLI) | payer MEDICARE, SELFPAY | END | disposition home or self-care (01) | LOC: PSN 11:52 | PROVIDERS: PCP Family Medicine Geriatric Medicine; Referring Provider Family Medicine Geriatric Medicine; Visit Provider Family Medicine Geriatric Medicine | DX: R68.83 Chills (without fever) (principal) | CPT/HCPCS: 87631 ==

== ENCOUNTER → 2024-07-01 | Outpatient (CLI) | payer MEDICARE, SELFPAY ==
[2024-07-01 13:36] LABS: Absolute Lymphocyte Count 1.85 X10^3/uL (0.83-4.51); Absolute Neutrophil Count 5.5 X10^3/uL (2.0-7.7); Basophil# 0.02 X10^3/uL; Basophil% 0.3 % (0-1); Eosinophil# 0.09 X10^3/uL; Eosinophils% 1.1 % (0-5); Hematocrit 42.5 % (37-47); Hemoglobin 13.9 g/dL (12.0-15.0); Lymphocyte # 1.85 X10^3/ul (0.83-4.51); Lymphocyte % 23.4 % (19-41); Mean Corp Hgb Conc 32.7 g/dL (32-36); Mean Corpuscular Hgb 29.4 pg (27.0-32.0); Mean Corpuscular Volume 89.9 fL (81-99); Mean Platelet Vol. 8.2 fl (6.2-12.0); Monocyte# 0.43 X10^3/uL; Monocyte% 5.4 % (0-10); NRBC Flagged by Analyzer 0 % (0-5); Neutrophil # 5.51 X10^3/uL (2.7-7.7); Neutrophil % 69.5 % (47-70); Platelet Count 323 K/mm3 (150-450); RBC Distribution Width CV 12.6 % (11.6-14.6); RBC Distribution Width SD 41.8 fl (35.1-43.9); Red Blood Count 4.73 M/mm3 (4.2-5.4); White Blood Count 7.9 K/mm3 (4.4-11.0)
[2024-07-01 14:18] LABS: Vitamin D,25 Hydroxy 36.7 ng/mL
[2024-07-01 14:28] LABS: Bacteria 0 SEEN /hpf (None Seen); Mucous, Urine 0 SEEN /hpf (<or=2+); Red Blood Cells-Urine 0 SEEN /hpf (0-5); White Blood Cells 0 SEEN /hpf (0-5)
--- NOTE | 2024-07-01 14:39 | RAD_ITS ---
STUDY: X-RAY - ABDOMEN/PELVIS REASON FOR EXAM: Female, 79 years old. NAUSEA TECHNIQUE: On 2 views COMPARISON: None. FINDINGS: Normal visualized lung bases. There is an unremarkable bowel gas pattern. There is no demonstrated free abdominal air. The visualized liver, spleen and kidneys are grossly normal in size and morphology. Normal soft tissue structures. Degenerative vertebral changes. Degenerative changes at the hips with joint space narrowing, right more than left. RAD/Abdomen Single View IMPRESSION: No acute pathology of the abdomen and pelvis. Electronically Signed: Antwan Segovia DO at 21:44 EDT ,
[2024-07-01 14:50] LABS: Color, Urine Yellow (Yellow); Glucose, Dipstick Normal (Normal); Ketone-Dipstick Negative (Negative); Leukocyte Esterase-Dipstick 25 /ul (Negative); Nitrite-Dipstick Negative (Negative); Occult Blood-Urine 25 /ul (Negative); Protein-Dipstick Negative (Negative); Specific Gravity, Urine 1.015 (1.002-1.030); Urine Bilirubin Dipstick Negative (Negative); Urine Clarity Clear (Clear); Urine Urobilinogen Normal (Normal)
[2024-07-01 14:56] LABS: Squamous Epithelial Cells - UA 0-5 SEEN /hpf (5-10)
[2024-07-01 15:23] LABS: ALB/GLOB Ratio 0.8 RATIO (0.9-2.4); AST(SGOT) 21 U/L (15-37); Alanine Aminotransfer ALT/SGPT 27 U/L (13-56); Albumin, Serum 3.4 g/dL (3.2-5.0); Alkaline Phosphatase 87 U/L (45-117); Anion Gap 5 (5-15); BUN 18 mg/dL (7-18); BUN/Creat Ratio 19.7 RATIO (10-20); Calcium,Total 9.7 mg/dL (8.5-10.1); Chloride 103 mmol/L (98-107); Cholesterol 263 mg/dL (200); Creatinine, Serum 0.91 mg/dL (0.55-1.02); EST Glomerular Filtration Rate 63 mL/min (>60); Est Glom Filt Rate - Afr Amer 76 mL/min (>60); Glucose 148 mg/dL (74-106); High Density Lipoprotein 37 mg/dL; Potassium 3.8 mmol/L (3.5-5.1); Protein, Total 7.4 g/dL (6.4-8.2); Sodium Level 139 mmol/L (136-145); Thyroid Stim Hormone (TSH) 0.658 uIU/mL (0.358-3.740); Triglycerides 347 mg/dL; Very Low Density Lipoprotein 69 mg/dL (5-40)
== END | disposition home or self-care (01) ==
PROVIDERS: PCP Family Medicine Geriatric Medicine; Referring Provider Family Medicine Geriatric Medicine; Visit Provider Family Medicine Geriatric Medicine
DX: R11.0 Nausea (principal); I10 Essential (primary) hypertension; E55.9 Vitamin D deficiency, unspecified; E78.5 Hyperlipidemia, unspecified; R73.9 Hyperglycemia, unspecified; R19.7 Diarrhea, unspecified
CPT/HCPCS: 36415; 74018; 80053; 80061; 81001; 82306; 83036; 84443; 85025; 87086; 87088

== ENCOUNTER → 2024-08-15 | Outpatient (CLI) | payer MEDICARE, SELFPAY ==
[2024-08-15 12:17] LABS: Color, Urine Yellow (Yellow); Glucose, Dipstick Normal (Normal); Ketone-Dipstick 5 mg/dl (Negative); Leukocyte Esterase-Dipstick Negative /ul (Negative); Nitrite-Dipstick Negative (Negative); Occult Blood-Urine 50 /ul (Negative); Protein-Dipstick 30 mg/dl (Negative); Urine Bilirubin Dipstick Negative (Negative); Urine Clarity Clear (Clear); Urine Urobilinogen Normal (Normal)
[2024-08-15 12:31] LABS: Absolute Lymphocyte Count 1.41 X10^3/uL (0.83-4.51); Absolute Neutrophil Count 4.7 X10^3/uL (2.0-7.7); Basophil# 0.01 X10^3/uL; Basophil% 0.2 % (0-1); Eosinophil# 0.06 X10^3/uL; Eosinophils% 0.9 % (0-5); Hematocrit 43.7 % (37-47); Hemoglobin 14.4 g/dL (12.0-15.0); Lymphocyte # 1.41 X10^3/ul (0.83-4.51); Lymphocyte % 21.4 % (19-41); Mean Corpuscular Hgb 30.2 pg (27.0-32.0); Mean Corpuscular Volume 91.6 fL (81-99); Mean Platelet Vol. 8.6 fl (6.2-12.0); Monocyte# 0.39 X10^3/uL; Monocyte% 5.9 % (0-10); NRBC Flagged by Analyzer 0 % (0-5); Neutrophil % 71.3 % (47-70); Platelet Count 344 K/mm3 (150-450); RBC Distribution Width CV 12.8 % (11.6-14.6); RBC Distribution Width SD 43.2 fl (35.1-43.9); Red Blood Count 4.77 M/mm3 (4.2-5.4); White Blood Count 6.6 K/mm3 (4.4-11.0)
[2024-08-15 13:18] LABS: ALB/GLOB Ratio 0.9 RATIO (0.9-2.4); AST(SGOT) 18 U/L (15-37); Alanine Aminotransfer ALT/SGPT 24 U/L (13-56); Albumin, Serum 3.5 g/dL (3.2-5.0); Alkaline Phosphatase 82 U/L (45-117); Anion Gap 6 (5-15); BUN 12 mg/dL (7-18); BUN/Creat Ratio 15.6 RATIO (10-20); Calcium,Total 9.2 mg/dL (8.5-10.1); Chloride 105 mmol/L (98-107); Creatinine, Serum 0.77 mg/dL (0.55-1.02); EST Glomerular Filtration Rate 77 mL/min (>60); Est Glom Filt Rate - Afr Amer 93 mL/min (>60); Globulin 3.9 g/dL (2.2-4.2); Glucose 120 mg/dL (74-106); Potassium 3.6 mmol/L (3.5-5.1); Protein, Total 7.4 g/dL (6.4-8.2); Sodium Level 140 mmol/L (136-145)
== END | disposition home or self-care (01) ==
LOC: LAB 11:51
PROVIDERS: PCP Family Medicine Geriatric Medicine; Referring Provider Family Medicine Geriatric Medicine; Visit Provider Family Medicine Geriatric Medicine
DX: N39.0 Urinary tract infection, site not specified (principal); R53.83 Other fatigue
CPT/HCPCS: 36415; 80053; 81002; 84443; 85025; 87086; 87088

== ENCOUNTER → 2024-11-06 | Outpatient (CLI) | payer MEDICARE, SELFPAY ==
[2024-11-06 16:54] LABS: Bacteria 0 SEEN /hpf (None Seen); Mucous, Urine 0 SEEN /hpf (<or=2+)
[2024-11-06 17:20] LABS: Basophil# 0.03 X10^3/uL; Basophil% 0.4 % (0-1); Eosinophil# 0.15 X10^3/uL; Hematocrit 43.6 % (37-47); Hemoglobin 14.2 g/dL (12.0-15.0); Lymphocyte % 23.6 % (19-41); Mean Corp Hgb Conc 32.6 g/dL (32-36); Mean Corpuscular Hgb 29.5 pg (27.0-32.0); Mean Corpuscular Volume 90.6 fL (81-99); Mean Platelet Vol. 8.5 fl (6.2-12.0); Monocyte# 0.68 X10^3/uL; Monocyte% 8.9 % (0-10); NRBC Flagged by Analyzer 0 % (0-5); Neutrophil # 4.95 X10^3/uL (2.7-7.7); Platelet Count 396 K/mm3 (150-450); RBC Distribution Width SD 43.2 fl (35.1-43.9); Red Blood Count 4.81 M/mm3 (4.2-5.4); White Blood Count 7.6 K/mm3 (4.4-11.0)
[2024-11-06 17:22] LABS: Color, Urine Yellow (Yellow); Glucose, Dipstick Normal (Normal); Ketone-Dipstick Negative (Negative); Leukocyte Esterase-Dipstick 25 /ul (Negative); Nitrite-Dipstick Negative (Negative); Occult Blood-Urine 10 /ul (Negative); Protein-Dipstick 15 mg/dl (Negative); Urine Bilirubin Dipstick Negative (Negative); Urine Clarity Clear (Clear); Urine Urobilinogen Normal (Normal)
[2024-11-06 18:12] LABS: ALB/GLOB Ratio 0.9 RATIO (0.9-2.4); AST(SGOT) 21 U/L (15-37); Alanine Aminotransfer ALT/SGPT 36 U/L (13-56); Albumin, Serum 3.7 g/dL (3.2-5.0); Alkaline Phosphatase 86 U/L (45-117); Anion Gap 4 (5-15); BUN 19 mg/dL (7-18); BUN/Creat Ratio 18.8 RATIO (10-20); Calcium,Total 9.4 mg/dL (8.5-10.1); Chloride 103 mmol/L (98-107); Creatinine, Serum 1.01 mg/dL (0.55-1.02); EST Glomerular Filtration Rate 56 mL/min (>60); Est Glom Filt Rate - Afr Amer 68 mL/min (>60); Globulin 3.9 g/dL (2.2-4.2); Glucose 98 mg/dL (74-106); Potassium 3.6 mmol/L (3.5-5.1); Protein, Total 7.6 g/dL (6.4-8.2); Sodium Level 138 mmol/L (136-145)
[2024-11-06 19:28] LABS: Red Blood Cells-Urine 0-5 SEEN /hpf (0-5); Squamous Epithelial Cells - UA 0-5 SEEN /hpf (5-10); White Blood Cells 0-5 SEEN /hpf (0-5)
== END | disposition home or self-care (01) ==
LOC: POLAB3 16:36
PROVIDERS: PCP Family Medicine Geriatric Medicine; Visit Provider Family Medicine Geriatric Medicine
DX: N39.0 Urinary tract infection, site not specified (principal); R50.9 Fever, unspecified
CPT/HCPCS: 80053; 81001; 85025; 87040; 87086; 87088; 87631

== ENCOUNTER → 2024-11-10 | Outpatient (CLI) | payer MEDICARE, SELFPAY ==
[2024-11-10 17:17] LABS: Mucous, Urine 0 SEEN /hpf (<or=2+)
--- NOTE | 2024-11-10 17:41 | CT_ITS ---
STUDY: CT BRAIN WITHOUT CONTRAST REASON FOR EXAM: Female, 79 years old. HEADACHE RADIATION DOSAGE (If Supplied By Facility): CTDIvol = ( 44.99 ) mGy, DLP = ( 812.98 ) mGycm TECHNIQUE: Transaxial CT imaging of the brain was performed without administration of intravenous contrast material. Individualized dose optimization techniques were used for this CT. The protocol utilizes one or more of the following dose reduction techniques: automated exposure control, adjustment of mA and/or kV according to patient size,and/or use of iterative reconstruction technique. COMPARISON: No relevant priors. FINDINGS: Normal soft tissue structures. Normal calvarium. Normal size ventricles and extra-axial spaces for the patient''s age. Normal white matter tracts of the cerebral hemispheres. Normal basal ganglia and thalami. Normal brainstem. Normal cerebellum. There is no intracranial hemorrhage. There are no findings of an acute ischemic infarction. Air-fluid level sphenoid sinus and millimeters calcific density. Exostosis outer table left occipital bone. CT/Brain/Head without Contrast IMPRESSION: Acute and chronic sphenoid sinusitis. Otherwise no acute intracranial disease. Electronically Signed: Byron Barth MD at 20:03 EST ,
--- NOTE | 2024-11-10 17:42 | CT_ITS ---
STUDY: CT ABDOMEN AND PELVIS WITH CONTRAST REASON FOR EXAM: Female, 79 years old. ABD PAIN RADIATION DOSAGE (If Supplied By Facility): CTDIvol = ( 18.92 ) mGy, DLP = ( 817.84 ) mGycm TECHNIQUE: Transaxial images were obtained from the dome of the diaphragm to the symphysis pubis without oral contrast. IV 100mL Isovue-[id number] was administered. Sagittal and coronal images were reconstructed. Individualized dose optimization techniques were used for this CT. The protocol utilizes one or more of the following dose reduction techniques: automated exposure control, adjustment of mA and/or kV according to patient size,and/or use of iterative reconstruction technique. COMPARISON: None. FINDINGS: The visualized lung bases are unremarkable. The visualized portions of the heart are within normal limits. Normal liver. Normal gallbladder and extrahepatic biliary system. Normal spleen. Normal pancreas. Normal bilateral adrenal glands. Normal right kidney. Normal left kidney. Moderate hiatal hernia. Normal small intestine. Colonic diverticulosis. The appendix is visualized and appears normal. Calcified plaque along the aorta and its branches. Retroaortic left renal vein. Normal inferior vena cava. Normal retroperitoneum. Normal urinary bladder. Fat-containing umbilical hernia. Grade [address]isthesis L4-5. CT/Abdomen/Pelvis WITH Contrast IMPRESSION: Moderate hiatal hernia. No acute disease. Electronically Signed: Byron Barth MD at 19:48 EST ,
[2024-11-10 17:58] LABS: Hematocrit 43.8 % (37-47); Hemoglobin 14.4 g/dL (12.0-15.0); Mean Corp Hgb Conc 32.9 g/dL (32-36); Mean Corpuscular Hgb 28.9 pg (27.0-32.0); Mean Corpuscular Volume 87.8 fL (81-99); Mean Platelet Vol. 8.7 fl (6.2-12.0); Platelet Count 412 K/mm3 (150-450); RBC Distribution Width CV 12.8 % (11.6-14.6); RBC Distribution Width SD 41.1 fl (35.1-43.9); Red Blood Count 4.99 M/mm3 (4.2-5.4); White Blood Count 7.1 K/mm3 (4.4-11.0)
--- NOTE | 2024-11-10 18:05 | RAD_ITS ---
STUDY: X-RAY CHEST REASON FOR EXAM: Female, 79 years old. CONGESTION OF RESP TRACT TECHNIQUE: Frontal and lateral views of the chest. COMPARISON: CT chest August 08, 2022 FINDINGS: Lungs are hyperaerated. The lungs are clear and expanded. There is no demonstrated pleural abnormality. Normal size heart. Normal mediastinum and mel. Normal visualized pulmonary arteries. Normal visualized aortic arch and descending thoracic aorta. Normal visualized thoracic spine. Normal visualized ribs, clavicles, and shoulders. There is no demonstrated abnormality of the visualized soft tissue structures of the upper abdomen. RAD/Chest PA and Lateral IMPRESSION: COPD Electronically Signed: Byron Barth MD at 20:17 EST ,
[2024-11-10 18:43] LABS: AST(SGOT) 29 U/L (15-37); Alanine Aminotransfer ALT/SGPT 33 U/L (13-56); Albumin, Serum 3.9 g/dL (3.2-5.0); Alkaline Phosphatase 83 U/L (45-117); Amylase 40 U/L (25-115); Anion Gap 10 (5-15); BUN 11 mg/dL (7-18); Calcium,Total 9.6 mg/dL (8.5-10.1); Chloride 100 mmol/L (98-107); Creatinine, Serum 0.78 mg/dL (0.55-1.02); EST Glomerular Filtration Rate 75 mL/min (>60); Est Glom Filt Rate - Afr Amer 91 mL/min (>60); Glucose 120 mg/dL (74-106); Lipase 72 U/L (13-75); Potassium 2.9 mmol/L (3.5-5.1); Protein, Total 7.9 g/dL (6.4-8.2); Sodium Level 136 mmol/L (136-145); Thyroid Stim Hormone (TSH) 0.991 uIU/mL (0.358-3.740)
[2024-11-10 18:46] LABS: Color, Urine Yellow (Yellow); Glucose, Dipstick Normal (Normal); Ketone-Dipstick 50 mg/dl (Negative); Leukocyte Esterase-Dipstick 25 /ul (Negative); Nitrite-Dipstick Negative (Negative); Occult Blood-Urine 150 /ul (Negative); Protein-Dipstick 100 mg/dl (Negative); Specific Gravity, Urine 1.025 (1.002-1.030); Urine Clarity Clear (Clear); Urine Urobilinogen Normal (Normal)
[2024-11-10 19:33] LABS: Urine Bilirubin Dipstick 1 mg/dL (Negative)
[2024-11-10 19:36] LABS: Bacteria RARE /hpf (None Seen); Red Blood Cells-Urine 0-5 SEEN /hpf (0-5); Squamous Epithelial Cells - UA 0-5 SEEN /hpf (5-10); White Blood Cells 5-10 SEEN /hpf (0-5)
== END | disposition home or self-care (01) ==
PROVIDERS: PCP Family Medicine Geriatric Medicine; Visit Provider Family Medicine Geriatric Medicine
DX: G93.40 Encephalopathy, unspecified (principal); R63.0 Anorexia; R51.9 Headache, unspecified; R10.9 Unspecified abdominal pain; J98.8 Other specified respiratory disorders; R68.83 Chills (without fever)
CPT/HCPCS: 36415; 70450; 71046; 74177; 80053; 81001; 82150; 83690; 84443; 85027; 87040; 87086; 87088; 87631; Q9967

== ENCOUNTER → 2024-12-30 | Outpatient (CLI) | payer MEDICARE, SELFPAY ==
[2024-12-30 13:07] LABS: Absolute Lymphocyte Count 1.92 X10^3/uL (0.83-4.51); Absolute Neutrophil Count 7.7 X10^3/uL (2.0-7.7); Basophil# 0.03 X10^3/uL; Basophil% 0.3 % (0-1); Eosinophil# 0.09 X10^3/uL; Eosinophils% 0.8 % (0-5); Hematocrit 37.6 % (37-47); Hemoglobin 12.2 g/dL (12.0-15.0); Lymphocyte # 1.92 X10^3/ul (0.83-4.51); Lymphocyte % 18.1 % (19-41); Mean Corp Hgb Conc 32.4 g/dL (32-36); Mean Corpuscular Hgb 29.8 pg (27.0-32.0); Mean Corpuscular Volume 91.7 fL (81-99); Mean Platelet Vol. 8.8 fl (6.2-12.0); Monocyte% 7.6 % (0-10); NRBC Flagged by Analyzer 0 % (0-5); Neutrophil # 7.68 X10^3/uL (2.7-7.7); Neutrophil % 72.5 % (47-70); Platelet Count 518 K/mm3 (150-450); RBC Distribution Width CV 13.7 % (11.6-14.6); RBC Distribution Width SD 46.2 fl (35.1-43.9); White Blood Count 10.6 K/mm3 (4.4-11.0)
[2024-12-30 19:24] LABS: ALB/GLOB Ratio 1.2 RATIO (0.9-2.4); AST(SGOT) 19 U/L (<=31); Alanine Aminotransfer ALT/SGPT 19 U/L (<=34); Albumin, Serum 3.8 g/dL (3.4-4.8); Alkaline Phosphatase 66 U/L (35-104); Anion Gap 12 (5-15); BUN 19 mg/dL (4-19); BUN/Creat Ratio 25.3 RATIO (10-20); Calcium 9.9 mg/dL (7.6-11.0); Carbon Dioxide 25.4 mmol/L (22.0-29.0); Chloride 100 mmol/L (96-108); Creatinine, Serum 0.7 mg/dL (0.6-1.0); EST Glomerular Filtration Rate 84 (>60); Globulin 3.1 g/dL (2.2-4.2); Glucose 88 mg/dL (70-99); Potassium 3.9 mmol/L (3.3-5.1); Protein, Total 6.9 g/dL (5.9-8.4); Sodium Level 138 mmol/L (133-145); Thyroid Stim Hormone (TSH) 0.872 uIU/mL (0.300-4.200); Total Bilirubin 0.28 mg/dL (0.00-1.30)
[2024-12-31 12:05] LABS: Cholesterol 247 mg/dL (<=200); High Density Lipoprotein 47 mg/dL; Low Density Lipoprotein Calc. 152 mg/dL; Triglycerides 237 mg/dL; Very Low Density Lipoprotein 47 mg/dL (5-40); cholesterol:hdl ratio screen 5.22
[2024-12-31 16:09] LABS: Anti-Thyroglobulin AB < 1.0 IU/mL (0.0-0.9); Thyroglobulin, Serum Qt. 3.4 ng/mL (1.5-38.5); Thyroid Peroxidase AB < 9 IU/mL (0-34)
[2024-12-31 19:28] LABS: Hemoglobin A1c 6.2 % (<=5.6)
== END | disposition home or self-care (01) ==
LOC: MFPLAB 10:59
PROVIDERS: PCP Family Medicine; Referring Provider Family Medicine; Visit Provider Family Medicine
DX: E04.1 Nontoxic single thyroid nodule (principal); I10 Essential (primary) hypertension; R73.09 Other abnormal glucose
CPT/HCPCS: 36415; 80053; 80061; 81001; 83036; 83735; 84432; 84439; 84443; 85025; 86376; 86800

== ENCOUNTER → 2025-03-11 | Outpatient (CLI) | payer MEDICARE, SELFPAY ==
[2025-03-11 17:40] LABS: Absolute Lymphocyte Count 1.79 X10^3/uL (0.83-4.51); Absolute Neutrophil Count 3.8 X10^3/uL (2.0-7.7); Basophil# 0.02 X10^3/uL; Basophil% 0.3 % (0-1); Eosinophil# 0.14 X10^3/uL; Eosinophils% 2.2 % (0-5); Hematocrit 40.1 % (37-47); Lymphocyte # 1.79 X10^3/ul (0.83-4.51); Lymphocyte % 28.4 % (19-41); Mean Corp Hgb Conc 32.4 g/dL (32-36); Mean Corpuscular Hgb 29.4 pg (27.0-32.0); Mean Corpuscular Volume 90.7 fL (81-99); Mean Platelet Vol. 9.3 fl (6.2-12.0); Monocyte% 9.5 % (0-10); NRBC Flagged by Analyzer 0 % (0-5); Neutrophil # 3.75 X10^3/uL (2.7-7.7); Neutrophil % 59.4 % (47-70); Platelet Count 328 K/mm3 (150-450); RBC Distribution Width CV 13.4 % (11.6-14.6); RBC Distribution Width SD 44.9 fl (35.1-43.9); Red Blood Count 4.42 M/mm3 (4.2-5.4); White Blood Count 6.3 K/mm3 (4.4-11.0)
[2025-03-11 18:26] LABS: ALB/GLOB Ratio 1.3 RATIO (0.9-2.4); AST(SGOT) 17 U/L (<=31); Alanine Aminotransfer ALT/SGPT 13 U/L (<=34); Albumin, Serum 3.9 g/dL (3.4-4.8); Alkaline Phosphatase 73 U/L (35-104); Anion Gap 12 (5-15); BUN 21 mg/dL (4-19); BUN/Creat Ratio 26.6 RATIO (10-20); Calcium,Total 9.6 mg/dL (7.6-11.0); Carbon Dioxide 25.3 mmol/L (21.0-32.0); Chloride 103 mmol/L (98-108); Creatinine, Serum 0.79 mg/dL (0.70-1.20); EST Glomerular Filtration Rate 75 (>60); Globulin 2.9 g/dL (2.2-4.2); Glucose 88 mg/dL (70-99); Potassium 3.9 mmol/L (3.3-5.1); Protein, Total 6.8 g/dL (5.9-8.4); Sodium Level 141 mmol/L (133-145); Total Bilirubin 0.34 mg/dL (0.00-1.30); Vitamin B12 910 pg/mL (180-914); Vitamin D,25 Hydroxy 35.4 ng/mL (30-100)
== END | disposition home or self-care (01) ==
LOC: MFPLAB 15:14
PROVIDERS: PCP Family Medicine; Referring Provider Family Medicine; Visit Provider Family Medicine
DX: R53.83 Other fatigue (principal)
CPT/HCPCS: 36415; 80053; 82306; 82607; 84439; 84443; 85025

== ENCOUNTER → 2025-03-19 | Outpatient (CLI) | payer MEDICARE, SELFPAY ==
[2025-03-19 15:13] LABS: Hematocrit 39.4 % (37-47); Hemoglobin 13.8 g/dL (12.0-15.0); Mean Corpuscular Hgb 32.9 pg (27.0-32.0); Mean Platelet Vol. 9.2 fl (6.2-12.0); Platelet Count 351 K/mm3 (150-450); RBC Distribution Width CV 14.3 % (11.6-14.6); RBC Distribution Width SD 42.5 fl (35.1-43.9); Red Blood Count 4.19 M/mm3 (4.2-5.4); White Blood Count 7.6 K/mm3 (4.4-11.0)
[2025-03-19 15:16] LABS: Color, Urine Yellow (Yellow); Glucose, Dipstick Normal (Normal); Ketone-Dipstick Negative (Negative); Leukocyte Esterase-Dipstick 25 /ul (Negative); Nitrite-Dipstick Negative (Negative); Occult Blood-Urine 25 /ul (Negative); Protein-Dipstick 30 mg/dl (Negative); Specific Gravity, Urine 1.025 (1.002-1.030); Urine Bilirubin Dipstick Negative (Negative); Urine Clarity Sl. Cloudy (Clear); Urine Urobilinogen Normal (Normal)
[2025-03-19 15:36] LABS: ALB/GLOB Ratio 1.4 RATIO (0.9-2.4); AST(SGOT) 21 U/L (<=31); Alanine Aminotransfer ALT/SGPT 17 U/L (<=34); Albumin, Serum 4.1 g/dL (3.4-4.8); Alkaline Phosphatase 77 U/L (35-104); Anion Gap 12 (5-15); BUN 22 mg/dL (4-19); BUN/Creat Ratio 23.4 RATIO (10-20); Calcium,Total 9.8 mg/dL (7.6-11.0); Carbon Dioxide 26.1 mmol/L (21.0-32.0); Chloride 102 mmol/L (98-108); Creatinine, Serum 0.92 mg/dL (0.70-1.20); EST Glomerular Filtration Rate 63 (>60); Glucose 100 mg/dL (70-99); Lipase 96 U/L (13-75); Potassium 3.8 mmol/L (3.3-5.1); Protein, Total 7.2 g/dL (5.9-8.4); Sodium Level 140 mmol/L (133-145)
== END | disposition home or self-care (01) ==
LOC: MTLAB 12:37
PROVIDERS: PCP Family Medicine
DX: R10.9 Unspecified abdominal pain (principal)
CPT/HCPCS: 36415; 80053; 81002; 83690; 85027

== ENCOUNTER → 2025-04-04 | Outpatient (CLI) | payer MEDICARE, SELFPAY ==
--- NOTE | 2025-04-04 10:13 | US_ITS ---
EXAM: US Abdomen Complete CLINICAL INDICATION: ABDOMINAL PAIN TECHNIQUE: Real-time ultrasound of the abdomen with image documentation. COMPARISON: No relevant prior studies available. FINDINGS: LIVER: Liver measures up to 17.0 cm. Fatty infiltration of the liver. No intrahepatic bile duct dilation. GALLBLADDER: Negative Ward's sign was reported by the pitch worker. No gallstones. COMMON BILE DUCT: Unremarkable as visualized. No stones. No dilation. Common bile duct measures 0.21 cm in diameter. PANCREAS: Unremarkable as visualized. KIDNEYS: Unremarkable. No stones. No hydronephrosis. The right kidney measures 11.1 x 4.4 x 4.1 cm. The left kidney measures 10.4 x 4.3 x 5.3 cm. SPLEEN: Spleen measures up to 9.8 cm. AORTA: Unremarkable. No aneurysm. INFERIOR VENA CAVA: Unremarkable. US/Abdomen Complete IMPRESSION: Fatty infiltration of the liver. Reading Location: [id number]
== END | disposition home or self-care (01) ==
PROVIDERS: PCP Family Medicine
DX: E78.5 Hyperlipidemia, unspecified (principal); R10.9 Unspecified abdominal pain
CPT/HCPCS: 76700

== ENCOUNTER → 2025-09-29 | Outpatient (CLI) | payer MEDICARE, SELFPAY ==
[2025-09-29 17:58] LABS: AST(SGOT) 17 U/L (<=31); Alanine Aminotransfer ALT/SGPT 15 U/L (<=34); Albumin, Serum 3.9 g/dL (3.4-4.8); Alkaline Phosphatase 79 U/L (35-104); Anion Gap 10 (5-15); BUN 20 mg/dL (4-19); BUN/Creat Ratio 24.2 RATIO (10-20); Calcium,Total 9.1 mg/dL (7.6-11.0); Carbon Dioxide 26.1 mmol/L (21.0-32.0); Chloride 103 mmol/L (98-108); Globulin 3.0 g/dL (2.2-4.2); Glucose 133 mg/dL (70-99); Potassium 3.5 mmol/L (3.3-5.1)
[2025-09-29 18:15] LABS: Hematocrit 41.2 % (37-47); Hemoglobin 13.7 g/dL (12.0-15.0); Immature Granulocytes Count 0.020 X10^3/uL (0.0-0.0); Mean Corp Hgb Conc 33.3 g/dL (32-36); Mean Corpuscular Volume 90.2 fL (81-99); Mean Platelet Vol. 9.2 fl (6.2-12.0); NRBC Flagged by Analyzer 0 % (0-5); Platelet Count 336 K/mm3 (150-450); RBC Distribution Width CV 12.7 % (11.6-14.6); RBC Distribution Width SD 41.6 fl (35.1-43.9); Red Blood Count 4.57 M/mm3 (4.2-5.4); White Blood Count 6.9 K/mm3 (4.4-11.0)
--- OUTSIDE RECORDS SUMMARY | 2025-09-29 19:15 | XMS RPT_ITS | CCD ---
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 carlos otransferase (ALT) measurementOrdered By: Paulo Hornermissoulaalex 03-19-2025 ALT [Catalytic activity/Vol] 17 U/L <35 [facility] Serum or plasma albumin oneyda urement (mass/volume)Ordered By: Paulo Cabezas 03-19-2025 Albumin [Mass/Vol] 4.1 g/dL 3.4-4.8 [facility] Serum or plasma albumin/glob ulin mass ratioOrdered By: Paulo [facility]-20[facility] Albumin/Globulin [Mass ratio] 1.4 {ratio} 0.9-2.4 [facility] Serum or plasma alkaline jumana sphatase measurementOrdered By: Paulo [facility] 03-19-2025 ALP [Catalytic activity/Vol] 77 U/L 35-104 [facility] Serum or plasma calcium oneyda urement (mass/volume)Ordered By: Paulo Horneralex 03-19-2025 Calcium [Mass/Vol] 9.8 mg/dL 7.6-11.0 [facility] Serum or plasma urea nitroge n measurement (mass/volume)Ordered By: Paulo Cabezas on 03-19-2025 Urea nitrogen [Mass/Vol] 22 mg/dL High 4-19 [facility] Sodium levelOrdered By: Malissa lorenzo McM on 03-19-2025 Sodium [Moles/Vol] 140 mmol/L 133-145 [facility] Total proteinOrdered By: Jose Guadalupe [place] on 03-19-2025 Protein [Mass/Vol] 7.2 g/dL 5.9-8.4 [facility] Urinalysis, Routine (Dipstic k)on 03-19-2025 BILIRUBIN URINE Negative Normal Negative [facility] Comment on above: Order Comment: Urine , Random Performed By: #### L 506.1000, L500.4050, L400.0001, L100.0100, L501.9985, M100.2200, L500.4100, L501.9520 #### [facility] [address] [place], [place], [id number] Clarity (U) Sl. Cloudy Normal Clear [facility] Comment on above: Order Comment: Urine , Random Performed By: #### L 506.1000, L500.4050, L400.0001, L100.0100, L501.9985, M100.2200, L500.4100, L501.9520 #### [facility] [address] [place], [place], [id number] Color (U) Yellow Normal Yellow [facility] Comment on above: Order Comment: Urine , Random Performed By: #### L 506.1000, L500.4050, L400.0001, L100.0100, L501.9985, M100.2200, L500.4100, L501.9520 #### [facility] [address] [place], [place], [id number] GLUCOSE, UR Normal Normal Normal [facility] Comment on above: Order Comment: Urine , Random Performed By: #### L 506.1000, L500.4050, L400.0001, L100.0100, L501.9985, M100.2200, L500.4100, L501.9520 #### [facility] [address] [place], [address] KETONE UR Negative Normal Negative [facility] Comment on above: Order Comment: Urine , Random Performed By: #### L 506.1000, L500.4050, L400.0001, L100.0100, L501.9985, M100.2200, L500.4100, L501.9520 #### [facility] [address] [place], [address] LEUK ESTERASE 25 /ul Abnormal Negative [facility] Comment on above: Order Comment: Urine , Random Performed By: #### L 506.1000, L500.4050, L400.0001, L100.0100, L501.9985, M100.2200, L500.4100, L501.9520 #### [facility] [address] [place], [address] Nitrite Ql (U) Negative Normal Negative [facility] Comment on above: Order Comment: Urine , Random Performed By: #### L 506.1000, L500.4050, L400.0001, L100.0100, L501.9985, M100.2200, L500.4100, L501.9520 #### [facility] [address], [address] OCCULT BLOOD-UR 25 /ul Abnormal Negative [facility] Comment on above: Order Comment: Urine , Random Performed By: #### L 506.1000, L500.4050, L400.0001, L100.0100, L501.9985, M100.2200, L500.4100, L501.9520 #### [facility] [address] [place], [address] pH UR 5.0 Normal 5.0 - 8.0 [facility] Comment on above: Order Comment: Urine , Random Performed By: #### L 506.1000, L500.4050, L400.0001, L100.0100, L501.9985, M100.2200, L500.4100, L501.9520 #### [facility] [address] [place], [address] PROT DIPSTX 30 mg/dl Abnormal Negative [facility] Comment on above: Order Comment: Urine , Random Performed By: #### L 506.1000, L500.4050, L400.0001, L100.0100, L501.9985, M100.2200, L500.4100, L501.9520 #### [facility] [address] [place], [address] SP.GR. DIPSTX 1.025 Normal 1.002-1.030 [facility] Comment on above: Order Comment: Urine , Random Performed By: #### L 506.1000, L500.4050, L400.0001, L100.0100, L501.9985, M100.2200, L500.4100, L501.9520 #### [facility] [address] [place], [address] UROBILI Normal Normal Normal [facility] Comment on above: Order Comment: Urine , Random Performed By: #### L 506.1000, L500.4050, L400.0001, L100.0100, L501.9985, M100.2200, L500.4100, L501.9520 #### [facility] [address] [place], [address] Urine clarityOrdered By: Jose Guadalupe Cabezas on 03-19-2025 Clarity (U) Sl. Cloudy Clear [facility] Urine color determinationOrd ered By: Paulo Cabezas on 03-19-2025 Color (U) Yellow Yellow [facility] Urine glucose detectionOrder ed By: Paulo Cabezas on 03-19-2025 Glucose Ql (U) Normal mg/dl Normal [facility] Urine leukocyte esterase det ection by dipstickOrdered By: Paulo Cabezas on 03-19-2025 Leukocyte esterase Test strip Ql (U) 25 /ul High Negative [facility] Urine pHOrdered By: Paulo Shelton on 03-19-2025 pH (U) 5.0 [pH] 5.0 - 8.0 [facility] Urine specific gravity measu rementOrdered By: Paulo Cabezas on 03-19-2025 Specific gravity (U) [Rel density] 1.025 1.002-1.030 [facility] Urine urobilinogen measureme ntOrdered By: Paulo Cabezas on 03-19-2025 Urobilinogen Ql (U) Normal mg/dl Normal [facility] White blood cell (WBC) count Ordered By: Paulo Cabezas on 03-19-2025 WBC (Bld) [#/Vol] 7.6 10*3/uL 4.4-11.0 [facility] Absolute lymphocyte countOrd ered By: Eduardo Baez on 03-11-2025 Lymphocytes Auto (Unsp spec) [#/Vol] 1.79 10*3/uL 0.83-4.51 [facility] Absolute neutrophil countOrd ered By: Eduardo Baez on 03-11-2025 Neutrophils (Bld) [#/Vol] 3.8 10*3/uL 2.0-7.7 [facility] Anion gap in Serum or Plasma Ordered By: Eduardo Baez on 03-11-2025 Anion gap [Moles/Vol] 12 mmol/L 03-19 [facility] Automated lymphocyte count a s percentage of total leukocytesOrdered By: Eduardo Baez on 03-11-2025 Lymphocytes/100 WBC Auto (Unsp spec) 28.4 % 19-41 [facility] BUN/creatinine ratioOrdered By: Eduardo Baez on 03-11-2025 Urea nitrogen/Creatinine [Mass ratio] 26.6 mg/mg High 10-20 [facility] Basophil percentageOrdered B y: Eduardo Baez on 03-11-2025 Basophils/100 WBC (Bld) 0.3 % 0-1 [facility] Bilirubin, totalOrdered By: Eduardo Baez on 05-07-2025 Bilirubin [Mass/Vol] 0.34 mg/dL 0.00-1.30 [facility] CBC W/Diff, Automatedon 05-0 7-2024 Absolute Lymph 1.79 X10 3/uL Normal 0.83-4.51 [facility] Comment on above: Order Comment: Order Date: 03/11/25Order Info: 0184-1 - CBCD Performed By: #### L 506.1000, L500.4050, L400.0001, L100.0100, L501.9985, M100.2200, L500.4100, L501.9520 #### [facility] [address], [address] Absolute Neut 3.8 X10 3/uL Normal 2.0-7.7 [facility] Comment on above: Order Comment: Order Date: 03/11/25Order Info: 0184- - CBCD Performed By: #### L 506.1000, L500.4050, L400.0001, L100.0100, L501.9985, M100.2200, L500.4100, L501.9520 #### [facility] [address] [place], [address] Basophils/100 WBC (Bld) 0.3 % Normal 0-1 [facility] Comment on above: Order Comment: Order Date: 03/11/25Order Info: 0184-1 - CBCD Performed By: #### L 506.1000, L500.4050, L400.0001, L100.0100, L501.9985, M100.2200, L500.4100, L501.9520 #### [facility] [address] [place], [address] Eosinophils/100 WBC (Bld) 2.2 % Normal 0-5 [facility] Comment on above: Order Comment: Order Date: 03/11/25Order Info: 0184-1 - CBCD Performed By: #### L 506.1000, L500.4050, L400.0001, L100.0100, L501.9985, M100.2200, L500.4100, L501.9520 #### [facility] [address] [place], [address] Erythrocyte distribution width (RBC) [Ratio] 13.4 % Normal 11.6-14.6 [facility] Comment on above: Order Comment: Order Date: 03/11/25Order Info: 0184-1 - CBCD Performed By: #### L 506.1000, L500.4050, L400.0001, L100.0100, L501.9985, M100.2200, L500.4100, L501.9520 #### [facility] [address] [place], [address] (032) Hematocrit (Bld) [Volume fraction] 40.1 % Normal 37-47 [facility] Comment on above: Order Comment: Order Date: 03/11/25Order Info: 0184-1 - CBCD Performed By: #### L 506.1000, L500.4050, L400.0001, L100.0100, L501.9985, M100.2200, L500.4100, L501.9520 #### [facility] [address] [place], [address] Hemoglobin (Bld) [Mass/Vol] 13.0 g/dL Normal 12.0-15.0 [facility] Comment on above: Order Comment: Order Date: 03/11/25Order Info: 0184-1 - CBCD Performed By: #### L 506.1000, L500.4050, L400.0001, L100.0100, L501.9985, M100.2200, L500.4100, L501.9520 #### [facility] [address] [place], [address] IG% 0.200 Normal 0.0-0.9 [facility] Comment on above: Order Comment: Order Date: 03/11/25Order Info: 0184-1 - CBCD Result Comment: IG% - Immature Granulocytes (promyelocytes, myelocytes and metamyelocytes) > 1% indicates that a LEFT SHIFT is Present. Performed By: #### L 506.1000, L500.4050, L400.0001, L100.0100, L501.9985, M100.2200, L500.4100, L501.9520 #### [facility] [address] [place], [address] Lymphocytes/100 WBC (Bld) 28.4 % Normal 19-41 [facility] Comment on above: Order Comment: Order Date: 03/11/25Order Info: 0184-1 - CBCD Performed By: #### L 506.1000, L500.4050, L400.0001, L100.0100, L501.9985, M100.2200, L500.4100, L501.9520 #### [facility] [address] [place], [address] MCH (RBC) [Entitic mass] 29.4 pg Normal 27.0-32.0 [facility] Comment on above: Order Comment: Order Date: 03/11/25Order Info: 0184-1 - CBCD Performed By: #### L 506.1000, L500.4050, L400.0001, L100.0100, L501.9985, M100.2200, L500.4100, L501.9520 #### [facility] [address] [place], [address] MCHC (RBC) [Mass/Vol] 32.4 g/dL Normal 32-36 [facility] Comment on above: Order Comment: Order Date: 03/11/25Order Info: 0184-1 - CBCD Performed By: #### L 506.1000, L500.4050, L400.0001, L100.0100, L501.9985, M100.2200, L500.4100, L501.9520 #### [facility] [address] [place], [address] MCV (RBC) [Entitic vol] 90.7 fL Normal 81-99 [facility] Comment on above: Order Comment: Order Date: 03/11/25Order Info: 0184-1 - CBCD Performed By: #### L 506.1000, L500.4050, L400.0001, L100.0100, L501.9985, M100.2200, L500.4100, L501.9520 #### [facility] [address] [place], [address] Monocytes/100 WBC (Bld) 9.5 % Normal 0-10 [facility] Comment on above: Order Comment: Order Date: 03/11/25Order Info: 0184-1 - CBCD Performed By: #### L 506.1000, L500.4050, L400.0001, L100.0100, L501.9985, M100.2200, L500.4100, L501.9520 #### [facility] [address] [place], [address] Neutrophils/100 WBC (Bld) 59.4 % Normal 47-70 [facility] Comment on above: Order Comment: Order Date: 03/11/25Order Info: 0184-1 - CBCD Performed By: #### L 506.1000, L500.4050, L400.0001, L100.0100, L501.9985, M100.2200, L500.4100, L501.9520 #### [facility] [address] [place], [address] Nucleated RBC (Bld) [#/Vol] 0 10*3/uL Normal 0-5 [facility] Comment on above: Order Comment: Order Date: 03/11/25Order Info: 0184-1 - CBCD Performed By: #### L 506.1000, L500.4050, L400.0001, L100.0100, L501.9985, M100.2200, L500.4100, L501.9520 #### [facility] [address], [address] Platelet mean volume (Bld) [Entitic vol] 9.3 fL Normal 6.2-12.0 [facility] Comment on above: Order Comment: Order Date: 03/11/25Order Info: 0184-1 - CBCD Performed By: #### L 506.1000, L500.4050, L400.0001, L100.0100, L501.9985, M100.2200, L500.4100, L501.9520 #### [facility] [address], [address] Platelets (Bld) [#/Vol] 328 10*3/uL Normal 150-450 [facility] Comment on above: Order Comment: Order Date: 03/11/25Order Info: 0184-1 - CBCD Performed By: #### L 506.1000, L500.4050, L400.0001, L100.0100, L501.9985, M100.2200, L500.4100, L501.9520 #### [facility] [address] [place], [address] RBC (Bld) [#/Vol] 4.42 10*6/uL Normal 4.2-5.[address] [facility] Comment on above: Order Comment: Order Date: 03/11/25Order Info: 0184-1 - CBCD Performed By: #### L 506.1000, L500.4050, L400.0001, L100.0100, L501.9985, M100.2200, L500.4100, L501.9520 #### [facility] [address], [address] RDW SD 44.9 fl High 35.1-43.9 [facility] Comment on above: Order Comment: Order Date: 03/11/25Order Info: 0184-1 - CBCD Performed By: #### L 506.1000, L500.4050, L400.0001, L100.0100, L501.9985, M100.2200, L500.4100, L501.9520 #### [facility] [address] [place], [address] WBC (Bld) [#/Vol] 6.3 10*3/uL Normal 4.4-11.0 [facility] Comment on above: Order Comment: Order Date: 03/11/25Order Info: 0184-1 - CBCD Performed By: #### L 506.1000, L500.4050, L400.0001, L100.0100, L501.9985, M100.2200, L500.4100, L501.9520 #### [facility] [address] [place], [address] Carbon dioxide, total [Moles /volume] in Central venous bloodOrdered By: Eduardo Baez on 03-11-2025 CO2 [Moles/Vol] 25.3 mmol/L 21.0-32.0 [facility] Chloride assayOrdered By: Radha Baez on 03-11-2025 Chloride [Moles/Vol] 103 mmol/L 98-108 [facility] Comprehensive Metabolic Prof ilon 03-11-2025 Albumin [Mass/Vol] 3.9 g/dL Normal 3.4-4.8 [facility] Comment on above: Order Comment: Order Date: 03/11/25Order Info: 0786-1 - CMPOrder Info: 3016-3 - TSHOrder Info: 3024-7 - T4F Performed By: #### L 506.1000, L500.4050, L400.0001, L100.0100, L501.9985, M100.2200, L500.4100, L501.9520 #### [facility] [address] [place], [address] Albumin/Globulin [Mass ratio] 1.3 {ratio} Normal 0.9-2.4 [facility] Comment on above: Order Comment: Order Date: 03/11/25Order Info: 0786-1 - CMPOrder Info: 3016-01 - TSHOrder Info: 3024-05 - T4F Performed By: #### L 506.1000, L500.4050, L400.0001, L100.0100, L501.9985, M100.2200, L500.4100, L501.9520 #### [facility] [address] [place], [place], [address] ALK PHOS 73 U/L Normal 35-104 [facility] Comment on above: Order Comment: Order Date: 03/11/25Order Info: 785-1 - CMPOrder Info: 3016-01 - TSHOrder Info: 3024-05 - T4F Performed By: #### L 506.1000, L500.4050, L400.0001, L100.0100, L501.9985, M100.2200, L500.4100, L501.9520 #### [facility] [address] [place], [place], [id number] ALT [Catalytic activity/Vol] 13 U/L Normal <=34 [facility] Comment on above: Order Comment: Order Date: 03/11/25Order Info: 785-11 - CMPOrder Info: 3016-01 - TSHOrder Info: 3024-05 - T4F Performed By: #### L 506.1000, L500.4050, L400.0001, L100.0100, L501.9985, M100.2200, L500.4100, L501.9520 #### [facility] [address] [place], [address] AST [Catalytic activity/Vol] 17 U/L Normal <=31 [facility] Comment on above: Order Comment: Order Date: 03/11/25Order Info: 785-1 - CMPOrder Info: 3016-01 - TSHOrder Info: 47 - T4F Performed By: #### L 506.1000, L500.4050, L400.0001, L100.0100, L501.9985, M100.2200, L500.4100, L501.9520 #### [facility] [address] [place], [address] Bilirubin [Mass/Vol] 0.34 mg/dL Normal 0.00-1.30 [facility] Comment on above: Order Comment: Order Date: 03/11/25Order Info: 0786-1 - CMPOrder Info: 6-3 - TSHOrder Info: 3024-7 - T4F Performed By: #### L 506.1000, L500.4050, L400.0001, L100.0100, L501.9985, M100.2200, L500.4100, L501.9520 #### [facility] [address] [place], [address] BUN/CRE 26.6 RATIO High 10-20 [facility] Comment on above: Order Comment: Order Date: 03/11/25Order Info: 0786-1 - CMPOrder Info: 3 - TSHOrder Info: 3024-7 - T4F Performed By: #### L 506.1000, L500.4050, L400.0001, L100.0100, L501.9985, M100.2200, L500.4100, L501.9520 #### [facility] [address] [place], [address] Calcium [Mass/Vol] 9.6 mg/dL Normal 7.6-11.0 [facility] Comment on above: Order Comment: Order Date: 03/11/25Order Info: 0786-1 - CMPOrder Info: 3015-3 - TSHOrder Info: 3024-7 - T4F Performed By: #### L 506.1000, L500.4050, L400.0001, L100.0100, L501.9985, M100.2200, L500.4100, L501.9520 #### [facility] [address] [place], [address] Chloride [Moles/Vol] 103 mmol/L Normal 98-108 [facility] Comment on above: Order Comment: Order Date: 03/11/25Order Info: 0786-1 - CMPOrder Info: 3015-3 - TSHOrder Info: 3024-7 - T4F Performed By: #### L 506.1000, L500.4050, L400.0001, L100.0100, L501.9985, M100.2200, L500.4100, L501.9520 #### [facility] [address] [place], [address] CO2 [Moles/Vol] 25.3 mmol/L Normal 21.0-32.0 [facility] Comment on above: Order Comment: Order Date: 03/11/25Order Info: 0786-1 - CMPOrder Info: 3 - TSHOrder Info: 3024-7 - T4F Performed By: #### L 506.1000, L500.4050, L400.0001, L100.0100, L501.9985, M100.2200, L500.4100, L501.9520 #### [facility] [address] [place], [address] Creatinine [Mass/Vol] 0.79 mg/dL Normal 0.70-1.20 [facility] Comment on above: Order Comment: Order Date: 03/11/25Order Info: 0786-1 - CMPOrder Info: 3015-3 - TSHOrder Info: 3024-7 - T4F Performed By: #### L 506.1000, L500.4050, L400.0001, L100.0100, L501.9985, M100.2200, L500.4100, L501.9520 #### [facility] [address] [place], [address] GAP 12 Normal 5-15 [facility] Comment on above: Order Comment: Order Date: 03/11/25Order Info: 0786-1 - CMPOrder Info: 3015-3 - TSHOrder Info: 3024-7 - T4F Performed By: #### L 506.1000, L500.4050, L400.0001, L100.0100, L501.9985, M100.2200, L500.4100, L501.9520 #### [facility] [address] [place], [address] GFR/1.73 sq M.predicted among non-blacks MDRD (S/P/Bld) [Vol rate/Area] 75 mL/min/{1.73_m2} Normal >60 [facility] Comment on above: Order Comment: Order Date: 03/11/25Order Info: 0786-1 - CMPOrder Info: 3016-01 - TSHOrder Info: 3023-7 - T4F Result Comment: mL/m in/1.73m2 CKD-EPI Creatinine Equation (2020) Performed By: #### L 506.1000, L500.4050, L400.0001, L100.0100, L501.9985, M100.2200, L500.4100, L501.9520 #### [facility] [address] [place], [address] Globulin (S) [Mass/Vol] 2.9 g/dL Normal 2.2-4.2 [facility] Comment on above: Order Comment: Order Date: 03/11/25Order Info: 0786-1 - CMPOrder Info: 3016-01 - TSHOrder Info: 3024-7 - T4F Performed By: #### L 506.1000, L500.4050, L400.0001, L100.0100, L501.9985, M100.2200, L500.4100, L501.9520 #### [facility] [address] [place], [address] Glucose [Mass/Vol] 88 mg/dL Normal 70-99 [facility] Comment on above: Order Comment: Order Date: 03/11/25Order Info: 0786-1 - CMPOrder Info: 3 - TSHOrder Info: 3024-7 - T4F Performed By: #### L 506.1000, L500.4050, L400.0001, L100.0100, L501.9985, M100.2200, L500.4100, L501.9520 #### [facility] [address] [place], [address] Potassium [Moles/Vol] 3.9 mmol/L Normal 3.3-5.1 [facility] Comment on above: Order Comment: Order Date: 03/11/25Order Info: 86-1 - CMPOrder Info: 3 - TSHOrder Info: 3024-7 - T4F Performed By: #### L 506.1000, L500.4050, L400.0001, L100.0100, L501.9985, M100.2200, L500.4100, L501.9520 #### [facility] [address] [place], [address] Sodium [Moles/Vol] 141 mmol/L Normal 133-145 [facility] Comment on above: Order Comment: Order Date: 03/11/25Order Info: 785- - CMPOrder Info: [id number] - TSHOrder Info: 3024-7 - T4F Performed By: #### L 506.1000, L500.4050, L400.0001, L100.0100, L501.9985, M100.2200, L500.4100, [id number] #### [facility] [address] [place], [address] T PROT 6.8 g/dL Normal 5.9-8.4 [facility] Comment on above: Order Comment: Order Date: 03/11/25Order Info: 785-1 - CMPOrder Info: 3 - TSHOrder Info: 3024-7 - T4F Performed By: #### L 506.1000, L500.4050, L400.0001, L100.0100, L501.9985, M100.2200, L500.4100, [id number] #### [facility] [address] [place], [address] Urea nitrogen [Mass/Vol] 21 mg/dL High 4-19 [facility] Comment on above: Order Comment: Order Date: 03/11/25Order Info: [id number] - CMPOrder Info: [id number] - TSHOrder Info: 3024-7 - T4F Performed By: #### L 506.1000, L500.4050, L400.0001, L100.0100, L501.9985, M100.2200, L500.4100, L501.9520 #### [facility] [address] [place], [address] Eosinophil percentageOrdered By: Eduardo Baez on 03-11-2025 Eosinophils/100 WBC (Bld) 2.2 % 0-5 [facility] Erythrocyte distribution wid th ratioOrdered By: Eduardo Baez on 03-11-2025 Erythrocyte distribution width (RBC) [Ratio] 13.4 % 11.6-14.6 [facility] Erythrocyte distribution wid th standard deviationOrdered By: Eduardo Baez on 03-11-2025 Erythrocyte distribution width (RBC) [Ratio] 44.9 fl High 35.1-43.9 [facility] Glomerular filtration rate ( GFR) estimation/1.73 sq m using serum, plasma, or whole bOrdered By: Eduardo Baez on 03-11-2025 GFR/1.73 sq M.predicted among non-blacks MDRD (S/P/Bld) [Vol rate/Area] 75 mL/min/{1.73_m2} >60 [facility] Comment on above: mL/min/1.73m2 CKD-EP I Creatinine Equation (2020) Hematocrit Auto (Bld) [Volum e fraction]Ordered By: Eduardo Baez on 03-11-2025 Hematocrit (Bld) [Volume fraction] 40.1 % 37-47 [facility] Hemoglobin measurementOrdere d By: Eduardo Baez on 03-11-2025 Hemoglobin (Bld) [Mass/Vol] 13.0 g/dL 12.0-15.0 [facility] Immature granulocytes/100 WB C Auto (Bld)Ordered By: Eduardo Baez on 03-11-2025 Immature granulocytes/100 WBC (Bld) 0.200 % 0.0-0.9 [facility] Comment on above: IG% - Immature Granu locytes (promyelocytes, myelocytes and metamyelocytes) > 1% indicates that a LEFT SHIFT is Present. Laboratory - Chemistry and C hemistry - challengeOrdered By: Eduardo Baez on 03-11-2025 AST [Catalytic activity/Vol] 17 U/L <32 [facility] MCV (mean corpuscular volume ) determinationOrdered By: Eduardo Baez on 03-11-2025 MCV (RBC) [Entitic vol] 90.7 fL 81-99 [facility] Mean corpuscular hemoglobin (MCH) determinationOrdered By: Eduardo Baez on 03-11-2025 MCH (RBC) [Entitic mass] 29.4 pg 27.0-32.0 [facility] Mean corpuscular hemoglobin concentration (MCHC) determinationOrdered By: Eduardo Baez on 03-11-2025 MCHC (RBC) [Mass/Vol] 32.4 g/dL 32-36 [facility] Mean platelet volume determi nationOrdered By: Eduardo Baez on 03-11-2025 Platelet mean volume (Bld) [Entitic vol] 9.3 fL 6.2-12.0 [facility] Monocyte percentageOrdered B y: Eduardo Baez on 03-11-2025 Monocytes/100 WBC (Bld) 9.5 % 0-10 [facility] Neutrophil percentageOrdered By: Eduardo Baez on 03-11-2025 Neutrophils/100 WBC (Bld) 59.4 % 47-70 [facility] Nucleated red blood cell per centageOrdered By: Eduardo Baez on 03-11-2025 Nucleated RBC/100 WBC (Bld) [Ratio] 0 % 0-5 [facility] Platelet countOrdered By: Radha Baez on 03-11-2025 Platelets (Bld) [#/Vol] 328 10*3/uL 150-450 [facility] Potassium measurement (mass/ volume)Ordered By: Eduardo Baez on 03-11-2025 Potassium (Unsp spec) [Mass/Vol] 3.9 mmol/L 3.3-5.1 [facility] RBC Auto (Bld) [#/Vol]Ordere d By: Eduardo Baez on 03-11-2025 RBC (Bld) [#/Vol] 4.42 10*6/uL 4.2-5.[address] [facility] Serum creatinine measurement (mass/volume)Ordered By: Eduardo Baez on 03-11-2025 Creatinine [Mass/Vol] 0.79 mg/dL 0.70-1.20 [facility] Serum globulin measurementOr dered By: Eduardo Baez on 03-11-2025 Globulin (S) [Mass/Vol] 2.9 g/dL 2.2-4.2 [facility] Serum glucose measurement (m ass/volume)Ordered By: Eduardo Baez on 03-11-2025 Glucose [Mass/Vol] 88 mg/dL 70-99 [facility] Serum or plasma alanine carlos otransferase (ALT) measurementOrdered By: Eduardo Baez on 03-11-2025 ALT [Catalytic activity/Vol] 13 U/L <35 [facility] Serum or plasma albumin oneyda urement (mass/volume)Ordered By: Eduardo Baez on 03-11-2025 Albumin [Mass/Vol] 3.9 g/dL 3.4-4.8 [facility] Serum or plasma albumin/glob ulin mass ratioOrdered By: Eduardo Baez on 03-11-2025 Albumin/Globulin [Mass ratio] 1.3 {ratio} 0.9-2.4 [facility] Serum or plasma alkaline jumana sphatase measurementOrdered By: Eduardo Baez on 03-11-2025 ALP [Catalytic activity/Vol] 73 U/L 35-104 [facility] Serum or plasma calcium oneyda urement (mass/volume)Ordered By: Eduardo Baez on 03-11-2025 Calcium [Mass/Vol] 9.6 mg/dL 7.6-11.0 [facility] Serum or plasma urea nitroge n measurement (mass/volume)Ordered By: Eduardo Baez on 03-11-2025 Urea nitrogen [Mass/Vol] 21 mg/dL High 4-19 [facility] Sodium levelOrdered By: Eduardo Baez on 03-11-2025 Sodium [Moles/Vol] 141 mmol/L 133-145 [facility] T4 Free Directon 03-11-2025 T4 FREE DIRECT 1.00 ng/dL Normal 0.76-1.46 [facility] Comment on above: Order Comment: Order Date: 03/11/25Order Info: [id number] - CMPOrder Info: [id number] - TSHOrder Info: [id number] - T4F Performed By: #### L 506.1000, L500.4050, L400.0001, L100.0100, L501.9985, M100.2200, L500.4100, L501.9520 #### [facility] [address] [place], [place], [id number] T4 freeOrdered By: Eduardo anderson on 03-11-2025 Free T4 [Mass/Vol] 1.00 ng/dL 0.76-1.46 [facility] TSH DL <= 0.005 mIU/L QnOrde red By: Eduardo Baez on 03-11-2025 TSH Qn 1.260 uIU/mL 0.300-4.200 [facility] Thyroid Stim Hormone (TSH)on 03-11-2025 TSH 1.260 uIU/mL Normal 0.300-4.200 [facility] Comment on above: Order Comment: Order Date: 03/11/25Order Info: [id number] - CMPOrder Info: 3 - TSHOrder Info: [id number] - T4F Performed By: #### L 506.1000, L500.4050, L400.0001, L100.0100, L501.9985, M100.2200, L500.4100, L501.9520 #### [facility] [address] [place], [place], [id number] Total proteinOrdered By: Rodriguez Baez on 03-11-2025 Protein [Mass/Vol] 6.8 g/dL 5.9-8.4 [facility] Vitamin B12on 03-11-2025 Cobalamin (Vitamin B12) [Mass/Vol] 910 pg/mL Normal 180-914 [facility] Comment on above: Order Comment: Order Date: 03/11/25Order Info: [id number] - CMPOrder Info: [id number] - TSHOrder Info: [id number] - T4F Performed By: #### L 506.1000, L500.4050, L400.0001, L100.0100, L501.9985, M100.2200, L500.4100, L501.9520 #### [facility] [address] [place], [place], [id number] Vitamin B12 ser/plasOrdered By: Eduardo Baez on 03-11-2025 Cobalamin (Vitamin B12) [Mass/Vol] 910 pg/mL 180-914 [facility] Vitamin D,25 Hydroxyon 03-11 Vitamin D 25-OH 35.4 ng/mL Normal 30-100 [facility] Comment on above: Order Comment: Order Date: 03/11/25Order Info: [id number] - CMPOrder Info: 3 - TSHOrder Info: [id number] - T4F Result Comment: Yancy min D Status Deficiency: <20 ng/mL (50nmol/L) Insufficiency: 20-30 ng/mL (50-75 nmol/L) Sufficiency: 30-100 ng/mL (75-250 nmol/L) Toxicity: >100 ng/mL (>250 nmol/L) Performed By: #### L 506.1000, L500.4050, L400.0001, L100.0100, L501.9985, M100.2200, L500.4100, L501.9520 #### [facility] [address] [place], [place], [address] White blood cell (WBC) count Ordered By: Eduardo Baez on 03-11-2025 WBC (Bld) [#/Vol] 6.3 10*3/uL 4.4-11.0 [facility] Hemoglobin A1con 12-31-2024 HbA1c (Bld) [Mass fraction] 6.2 % Normal <=5.6 [facility] Comment on above: Order Comment: Order Date: 12/30/24Order Info: [id number] - A1C Performed By: #### L 506.1000, L500.4050, L400.0001, L100.0100, L501.9985, M100.2200, L500.4100, L501.9520 #### [facility] [address] [place], [address] Lipid Profileon 12-31-2024 CHOL:HDL 5.22 Normal [facility] Comment on above: Performed By: #### L 506.1000, L500.4050, L400.0001, L100.0100, L501.9985, M100.2200, L500.4100, L501.9520 #### [facility] [address] [place], [address] Cholesterol [Mass/Vol] 247 mg/dL High <=200 [facility] Comment on above: Result Comment: Chol esterol level, Desirable <200 mg/dL Borderline high cholesterol 200-239 mg/dL High cholesterol >=240 mg/dL Recommendations of the NCEP Adult Treatment Panel for the following risk-cutoff thresholds for the [place] population. Performed By: #### L 506.1000, L500.4050, L400.0001, L100.0100, L501.9985, M100.2200, L500.4100, L501.9520 #### [facility] [address] [place], [place], [phone] Cholesterol in HDL [Mass/Vol] 47 mg/dL Normal [facility] Comment on above: Result Comment: Radhika onal Cholesterol Education Program (NCEP) guidelines: <40 mg/dL: Low HDL-cholesterol (major risk factor for CHD) >= 60 mg/dL: High HDL-cholesterol (negative risk factor for CHD) HDL-cholesterol is affected by a number of factors, e.g. smoking, exercise, hormones, sex and age. Performed By: #### L 506.1000, L500.4050, L400.0001, L100.0100, L501.9985, M100.2200, L500.4100, L501.9520 #### [facility] [address] [place], [address] Cholesterol in LDL [Mass/Vol] 152 mg/dL Normal [facility] Comment on above: Result Comment: Bord okjgfv=450-064 mg/dL Higher Qcdt=704 mg/dL or greater Performed By: #### L 506.1000, L500.4050, L400.0001, L100.0100, L501.9985, M100.2200, L500.4100, L501.9520 #### [facility] [address] [place], [address] (405) Cholesterol in VLDL [Mass/Vol] 47 mg/dL High 5-40 [facility] Comment on above: Performed By: #### L 506.1000, L500.4050, L400.0001, L100.0100, L501.9985, M100.2200, L500.4100, L501.9520 #### [facility] [address] [place], [address] (623) Triglyceride [Mass/Vol] 237 mg/dL High [facility] Comment on above: Result Comment: The drugs N-Acetylcysteine and Metamizole may falsely depress this assay. Normal range: <150 mg/dL Borderline High: 150-199 mg/dL High: 200-499 mg/dL Very High: >500 mg/dL Performed By: #### L 506.1000, L500.4050, L400.0001, L100.0100, L501.9985, M100.2200, L500.4100, L501.9520 #### [facility] [address] [place], [address] Thyroglobulin w/Anti-TG ABon 12-31-2024 Anti-TG AB < 1.0 Normal 0.0-0.9 [facility] Comment on above: Result Comment: Thyr oglobulin Antibody measured by [employer] It should be noted that the presence of thyroglobulin antibodies may not be pathogenic nor diagnostic, especially at very low levels. The assay armament mechanic has found that four percent of individuals without evidence of thyroid disease or autoimmunity will have positive TgAb levels up to 4 IU/mL. Performed By: #### L 506.1000, L500.4050, L400.0001, L100.0100, L501.9985, M100.2200, L500.4100, L501.9520 #### [facility] [address] [place], [place], [id number] THYROGLOB QUANT 3.4 ng/mL Normal 1.5-38.5 [facility] Comment on above: Result Comment: Acco rding to the National Academy of Clinical Biochemistry, the reference interval for Thyroglobulin (TG) should be related to euthyroid patients and not for patients who underwent thyroidectomy. TG reference intervals for these patients depend on the residual mass of the thyroid tissue left after surgery. Establishing a post-operative baseline is recommended. The assay limit of quantitation is 0.1 ng/mL Thyroglobulin measured by Mariel Conce[employer]ion Immunometric Assay Performed By: #### L 506.1000, L500.4050, L400.0001, L100.0100, L501.9985, M100.2200, L500.4100, L501.9520 #### [facility] [address] [place], [address] Thyroid Peroxidase ABon 12-07 THYR PEROX AB < 9 Normal 0-34 [facility] Comment on above: Result Comment: Perf ormed at: [facility] [address] [id number] Supervisor Production Department: Oswaldo Russ PhD, Phone: [phone] Performed By: #### L 506.1000, L500.4050, L400.0001, L100.0100, L501.9985, M100.2200, L500.4100, L501.9520 #### [facility] [address] [place], [place], [id number] Absolute lymphocyte countOrd ered By: Eduardo Baez on 12-30-2024 Lymphocytes Auto (Unsp spec) [#/Vol] 1.92 10*3/uL 0.83-4.51 [facility] Absolute neutrophil countOrd ered By: Eduardo Baez on 12-30-2024 Neutrophils (Bld) [#/Vol] 7.7 10*3/uL 2.0-7.7 [facility] Automated lymphocyte count a s percentage of total leukocytesOrdered By: Eduardo Baez on 12-30-2024 Lymphocytes/100 WBC Auto (Unsp spec) 18.1 % Low 19-41 [facility] BUN/creatinine ratioOrdered By: Eduardo Baez on 12-30-2024 Urea nitrogen/Creatinine [Mass ratio] 25.3 mg/mg High 10-20 [facility] Basophil percentageOrdered B y: Eduardo Baez on 12-30-2024 Basophils/100 WBC (Bld) 0.3 % 0-1 [facility] Bilirubin, totalOrdered By: Eduardo Baez on 12-30-2024 Bilirubin [Mass/Vol] 0.28 mg/dL 0.00-1.30 [facility] CBC W/Diff, Automatedon 12-07 Absolute Lymph 1.92 X10 3/uL Normal 0.83-4.51 [facility] Comment on above: Order Comment: Order Date: 12/30/24Order Info: [id number] - CBCD Performed By: #### L 506.1000, L500.4050, L400.0001, L100.0100, L501.9985, M100.2200, L500.4100, L501.9520 #### [facility] [address] [place], [place], [phone] (585) Absolute Neut 7.7 X10 3/uL Normal 2.0-7.7 [facility] Comment on above: Order Comment: Order Date: 12/30/24Order Info: 0184-1 - CBCD Performed By: #### L 506.1000, L500.4050, L400.0001, L100.0100, L501.9985, M100.2200, L500.4100, L501.9520 #### [facility] [address] [place], [address] Basophils/100 WBC (Bld) 0.3 % Normal 0-1 [facility] Comment on above: Order Comment: Order Date: 12/30/24Order Info: 0184-1 - CBCD Performed By: #### L 506.1000, L500.4050, L400.0001, L100.0100, L501.9985, M100.2200, L500.4100, L501.9520 #### [facility] [address] [place], [address] Eosinophils/100 WBC (Bld) 0.8 % Normal 0-5 [facility] Comment on above: Order Comment: Order Date: 12/30/24Order Info: 0184-1 - CBCD Performed By: #### L 506.1000, L500.4050, L400.0001, L100.0100, L501.9985, M100.2200, L500.4100, L501.9520 #### [facility] [address] [place], [place], [phone] (895) Erythrocyte distribution width (RBC) [Ratio] 13.7 % Normal 11.6-14.6 [facility] Comment on above: Order Comment: Order Date: 12/30/24Order Info: 0184-1 - CBCD Performed By: #### L 506.1000, L500.4050, L400.0001, L100.0100, L501.9985, M100.2200, L500.4100, L501.9520 #### [facility] [address], [address] Hematocrit (Bld) [Volume fraction] 37.6 % Normal 37-47 [facility] Comment on above: Order Comment: Order Date: 12/30/24Order Info: 0184-1 - CBCD Performed By: #### L 506.1000, L500.4050, L400.0001, L100.0100, L501.9985, M100.2200, L500.4100, L501.9520 #### [facility] [address], [address] Hemoglobin (Bld) [Mass/Vol] 12.2 g/dL Normal 12.0-15.0 [facility] Comment on above: Order Comment: Order Date: 12/30/24Order Info: 0184-1 - CBCD Performed By: #### L 506.1000, L500.4050, L400.0001, L100.0100, L501.9985, M100.2200, L500.4100, L501.9520 #### [facility] [address] [place], [address] IG% 0.700 Normal 0.0-0.9 [facility] Comment on above: Order Comment: Order Date: 12/30/24Order Info: 0184-1 - CBCD Result Comment: IG% - Immature Granulocytes (promyelocytes, myelocytes and metamyelocytes) > 1% indicates that a LEFT SHIFT is Present. Performed By: #### L 506.1000, L500.4050, L400.0001, L100.0100, L501.9985, M100.2200, L500.4100, L501.9520 #### [facility] [address], [address] Lymphocytes/100 WBC (Bld) 18.1 % Low 19-41 [facility] Comment on above: Order Comment: Order Date: 12/30/24Order Info: 0184-1 - CBCD Performed By: #### L 506.1000, L500.4050, L400.0001, L100.0100, L501.9985, M100.2200, L500.4100, L501.9520 #### [facility] [address] [place], [place], [id number] MCH (RBC) [Entitic mass] 29.8 pg Normal 27.0-32.0 [facility] Comment on above: Order Comment: Order Date: 12/30/24Order Info: 0184-1 - CBCD Performed By: #### L 506.1000, L500.4050, L400.0001, L100.0100, L501.9985, M100.2200, L500.4100, L501.9520 #### [facility] [address], [address] MCHC (RBC) [Mass/Vol] 32.4 g/dL Normal 32-36 [facility] Comment on above: Order Comment: Order Date: 12/30/24Order Info: 0184-1 - CBCD Performed By: #### L 506.1000, L500.4050, L400.0001, L100.0100, L501.9985, M100.2200, L500.4100, L501.9520 #### [facility] [address], [address] MCV (RBC) [Entitic vol] 91.7 fL Normal 81-99 [facility] Comment on above: Order Comment: Order Date: 12/30/24Order Info: 0184-1 - CBCD Performed By: #### L 506.1000, L500.4050, L400.0001, L100.0100, L501.9985, M100.2200, L500.4100, L501.9520 #### [facility] [address], [address] Monocytes/100 WBC (Bld) 7.6 % Normal 0-10 [facility] Comment on above: Order Comment: Order Date: 12/30/24Order Info: 0184-1 - CBCD Performed By: #### L 506.1000, L500.4050, L400.0001, L100.0100, L501.9985, M100.2200, L500.4100, L501.9520 #### [facility] [address] [place], [address] Neutrophils/100 WBC (Bld) 72.5 % High 47-70 [facility] Comment on above: Order Comment: Order Date: 12/30/24Order Info: 0184-1 - CBCD Performed By: #### L 506.1000, L500.4050, L400.0001, L100.0100, L501.9985, M100.2200, L500.4100, L501.9520 #### [facility] [address], [address] Nucleated RBC (Bld) [#/Vol] 0 10*3/uL Normal 0-5 [facility] Comment on above: Order Comment: Order Date: 12/30/24Order Info: 0184-1 - CBCD Performed By: #### L 506.1000, L500.4050, L400.0001, L100.0100, L501.9985, M100.2200, L500.4100, L501.9520 #### [facility] [address] [place], [address] Platelet mean volume (Bld) [Entitic vol] 8.8 fL Normal 6.2-12.0 [facility] Comment on above: Order Comment: Order Date: 12/30/24Order Info: 0184-1 - CBCD Performed By: #### L 506.1000, L500.4050, L400.0001, L100.0100, L501.9985, M100.2200, L500.4100, L501.9520 #### [facility] [address] [place], [address] Platelets (Bld) [#/Vol] 518 10*3/uL High 150-450 [facility] Comment on above: Order Comment: Order Date: 12/30/24Order Info: 0184-1 - CBCD Performed By: #### L 506.1000, L500.4050, L400.0001, L100.0100, L501.9985, M100.2200, L500.4100, L501.9520 #### [facility] [address] [place], [address] RBC (Bld) [#/Vol] 4.10 10*6/uL Low 4.2-5.[address] [facility] Comment on above: Order Comment: Order Date: 12/30/24Order Info: 0184-1 - CBCD Performed By: #### L 506.1000, L500.4050, L400.0001, L100.0100, L501.9985, M100.2200, L500.4100, L501.9520 #### [facility] [address] [place], [place], [address] RDW SD 46.2 fl High 35.1-43.9 [facility] Comment on above: Order Comment: Order Date: 12/30/24Order Info: 0184-1 - CBCD Performed By: #### L 506.1000, L500.4050, L400.0001, L100.0100, L501.9985, M100.2200, L500.4100, L501.9520 #### [facility] [address] [place], [place], [id number] WBC (Bld) [#/Vol] 10.6 10*3/uL Normal 4.4-11.[address] [facility] Comment on above: Order Comment: Order Date: 12/30/24Order Info: 0184-1 - CBCD Performed By: #### L 506.1000, L500.4050, L400.0001, L100.0100, L501.9985, M100.2200, L500.4100, L501.9520 #### [facility] [address] [place], [place], [id number] Calculated very low density lipoprotein (VLDL) cholesterol measurementOrdered By: Eduardo Baez on 12-30-2024 Calculated very low density lipoprotein (VLDL) cholesterol measurement 47 mg/dL High 5-40 [facility] VLDL Cholesterol 47 mg/dL High 5-40 [facility] Comprehensive Metabolic Prof ilon 12-30-2024 Albumin [Mass/Vol] 3.8 g/dL Normal 3.4-4.8 [facility] Comment on above: Performed By: #### L 506.1000, L500.4050, L400.0001, L100.0100, L501.9985, M100.2200, L500.4100, L501.9520 #### [facility] [address], [address] Albumin/Globulin [Mass ratio] 1.2 {ratio} Normal 0.9-2.4 [facility] Comment on above: Performed By: #### L 506.1000, L500.4050, L400.0001, L100.0100, L501.9985, M100.2200, L500.4100, L501.9520 #### [facility] [address] [place], [address] ALK PHOS 66 U/L Normal 35-104 [facility] Comment on above: Performed By: #### L 506.1000, L500.4050, L400.0001, L100.0100, L501.9985, M100.2200, L500.4100, L501.9520 #### [facility] [address], [address] ALT [Catalytic activity/Vol] 19 U/L Normal <=34 [facility] Comment on above: Performed By: #### L 506.1000, L500.4050, L400.0001, L100.0100, L501.9985, M100.2200, L500.4100, L501.9520 #### [facility] [address], [address] Anion gap [Moles/Vol] 12 mmol/L Normal 5-15 [facility] Comment on above: Performed By: #### L 506.1000, L500.4050, L400.0001, L100.0100, L501.9985, M100.2200, L500.4100, L501.9520 #### [facility] [address], [address] AST [Catalytic activity/Vol] 19 U/L Normal <=31 [facility] Comment on above: Performed By: #### L 506.1000, L500.4050, L400.0001, L100.0100, L501.9985, M100.2200, L500.4100, L501.9520 #### [facility] [address], [address] Bilirubin [Mass/Vol] 0.28 mg/dL Normal 0.00-1.30 [facility] Comment on above: Performed By: #### L 506.1000, L500.4050, L400.0001, L100.0100, L501.9985, M100.2200, L500.4100, L501.9520 #### [facility] [address], [address] BUN/CRE 25.3 RATIO High 10-20 [facility] Comment on above: Performed By: #### L 506.1000, L500.4050, L400.0001, L100.0100, L501.9985, M100.2200, L500.4100, L501.9520 #### [facility] [address], [address] Calcium [Mass/Vol] 9.9 mg/dL Normal 7.6-11.0 [facility] Comment on above: Performed By: #### L 506.1000, L500.4050, L400.0001, L100.0100, L501.9985, M100.2200, L500.4100, L501.9520 #### [facility] [address] [place], [address] Chloride [Moles/Vol] 100 mmol/L Normal 96-108 [facility] Comment on above: Performed By: #### L 506.1000, L500.4050, L400.0001, L100.0100, L501.9985, M100.2200, L500.4100, L501.9520 #### [facility] [address] [place], [address] CO2 [Moles/Vol] 25.4 mmol/L Normal 22.0-29.0 [facility] Comment on above: Performed By: #### L 506.1000, L500.4050, L400.0001, L100.0100, L501.9985, M100.2200, L500.4100, L501.9520 #### [facility] [address] [place], [address] Creatinine [Mass/Vol] 0.7 mg/dL Normal 0.6-1.0 [facility] Comment on above: Performed By: #### L 506.1000, L500.4050, L400.0001, L100.0100, L501.9985, M100.2200, L500.4100, L501.9520 #### [facility] [address] [place], [address] GFR/1.73 sq M.predicted among non-blacks MDRD (S/P/Bld) [Vol rate/Area] 84 mL/min/{1.73_m2} Normal >60 [facility] Comment on above: Result Comment: mL/m in/1.73m2 CKD-EPI Creatinine Equation (2020) Performed By: #### L 506.1000, L500.4050, L400.0001, L100.0100, L501.9985, M100.2200, L500.4100, L501.9520 #### [facility] [address] [place], [address] Globulin (S) [Mass/Vol] 3.1 g/dL Normal 2.2-4.2 [facility] Comment on above: Performed By: #### L 506.1000, L500.4050, L400.0001, L100.0100, L501.9985, M100.2200, L500.4100, L501.9520 #### [facility] [address] [place], [address] Glucose [Mass/Vol] 88 mg/dL Normal 70-99 [facility] Comment on above: Performed By: #### L 506.1000, L500.4050, L400.0001, L100.0100, L501.9985, M100.2200, L500.4100, L501.9520 #### [facility] [address] [place], [address] Potassium [Moles/Vol] 3.9 mmol/L Normal 3.3-5.1 [facility] Comment on above: Performed By: #### L 506.1000, L500.4050, L400.0001, L100.0100, L501.9985, M100.2200, L500.4100, L501.9520 #### [facility] [address] [place], [address] Sodium [Moles/Vol] 138 mmol/L Normal 133-145 [facility] Comment on above: Performed By: #### L 506.1000, L500.4050, L400.0001, L100.0100, L501.9985, M100.2200, L500.4100, L501.9520 #### [facility] [address] [place], [address] T PROT 6.9 g/dL Normal 5.9-8.4 [facility] Comment on above: Performed By: #### L 506.1000, L500.4050, L400.0001, L100.0100, L501.9985, M100.2200, L500.4100, L501.9520 #### [facility] [address] [place], [address] Urea nitrogen [Mass/Vol] 19 mg/dL Normal 4-19 [facility] Comment on above: Performed By: #### L 506.1000, L500.4050, L400.0001, L100.0100, L501.9985, M100.2200, L500.4100, L501.9520 #### [facility] [place], [address] Creatinine [Moles/Vol]Ordere d By: Eduardo Baez on 12-30-2024 Creatinine [Mass/Vol] 0.7 mg/dL 0.6-1.0 [facility] Eosinophil percentageOrdered By: Eduardo Baez on 12-30-2024 Eosinophils/100 WBC (Bld) 0.8 % 0-5 [facility] Erythrocyte distribution wid th ratioOrdered By: Eduardo Baez on 12-30-2024 Erythrocyte distribution width (RBC) [Ratio] 13.7 % 11.6-14.6 [facility] Erythrocyte distribution wid th standard deviationOrdered By: Eduardo Baez on 12-30-2024 Erythrocyte distribution width (RBC) [Entitic vol] 46.2 fL High 35.1-43.9 [facility] Erythrocyte distribution width (RBC) [Ratio] 46.2 fl High 35.1-43.9 [facility] GFR/1.73 sq M.predicted karthik g non-blacks MDRD (S/P/Bld) [Vol rate/Area]Ordered By: Eduardo Baez on 12-30-2024 Estimated GFR (MDRD) Non-Af Amer 84 >60 [facility] Comment on above: mL/min/1.73m2 CKD-EP I Creatinine Equation (2020) Glomerular filtration rate ( GFR) estimation/1.73 sq m using serum, plasma, or whole bOrdered By: Eduardo Baez on 12-30-2024 GFR/1.73 sq M.predicted among non-blacks MDRD (S/P/Bld) [Vol rate/Area] 84 mL/min/{1.73_m2} >60 [facility] Comment on above: mL/min/1.73m2 CKD-EP I Creatinine Equation (2020) Hematocrit Auto (Bld) [Volum e fraction]Ordered By: Eduardo Beaz on 12-30-2024 Hematocrit (Bld) [Volume fraction] 37.6 % 37-47 [facility] Hemoglobin A1c percentageOrd ered By: Eduardo Baez on 12-30-2024 HbA1c (Bld) [Mass fraction] 6.2 % >5.7 [facility] Hemoglobin measurementOrdere d By: Eduardo Baez on 12-30-2024 Hemoglobin (Bld) [Mass/Vol] 12.2 g/dL 12.0-15.0 [facility] Immature granulocytes/100 WB C Auto (Bld)Ordered By: Eduardo Baez on 12-30-2024 Immature granulocytes/100 WBC (Bld) 0.700 % 0.0-0.9 [facility] Comment on above: IG% - Immature Granu locytes (promyelocytes, myelocytes and metamyelocytes) > 1% indicates that a LEFT SHIFT is Present. LDL calc ser/plasOrdered By: Eduardo Baez on 12-30-2024 Cholesterol in LDL [Mass/Vol] 152 mg/dL [facility] Comment on above: Tqwrszvfns=988-725 m g/dL & Higher Ejae=767 mg/dL or greater LDL Cholesterol, Calculated 152 mg/dL [facility] Comment on above: Wubticarfc=152-748 m g/dL & Higher Odrp=829 mg/dL or greater Laboratory - Chemistry and C hemistry - challengeOrdered By: Eduardo Baez on 12-30-2024 AST [Catalytic activity/Vol] 19 U/L <32 [facility] Lipid Profileon 12-30-2024 HDL Normal [facility] Comment on above: Order Comment: Order Date: 12/30/24Order Info: [id number] - CMPOrder Info: [id number] - LIPIDOrder Info: [id number] - MGOrder Info: [id number] - TSHOrder Info: [id number] - T4F Result Comment: PUTT ING UNDER DIFFERENT REQ The drugs N-Acetylcysteine and Metamizole may falsely depress this assay. Performed By: #### L 506.1000, L500.4050, L400.0001, L100.0100, L501.9985, M100.2200, L500.4100, L501.9520 #### [facility] [address] [place], [address] TRIG Normal [facility] Comment on above: Order Comment: Order Date: 12/30/24Order Info: [id number] - CMPOrder Info: [id number] - LIPIDOrder Info: [id number] - MGOrder Info: [id number] - TSHOrder Info: [id number] - T4F Result Comment: PUTT ING UNDER DIFFERENT REQ The drugs N-Acetylcysteine and Metamizole may falsely depress this assay. Performed By: #### L 506.1000, L500.4050, L400.0001, L100.0100, L501.9985, M100.2200, L500.4100, L501.9520 #### [facility] [address] [place], [place], [id number] (454) CHOL Normal <=200 [facility] Comment on above: Order Comment: Order Date: 12/30/24Order Info: [id number] - CMPOrder Info: [id number] - LIPIDOrder Info: [id number] - MGOrder Info: 6-3 - TSHOrder Info: [id number] - T4F Result Comment: PUTT ING UNDER DIFFERENT REQ Performed By: #### L 506.1000, L500.4050, L400.0001, L100.0100, L501.9985, M100.2200, L500.4100, L501.9520 #### [facility] [address] [place], [place], [id number] ([address] LDL Normal 0-130 [facility] Comment on above: Order Comment: Order Date: 12/30/24Order Info: [id number] - CMPOrder Info: [id number] - LIPIDOrder Info: [id number] - MGOrder Info: [id number] - TSHOrder Info: [id number] - T4F Result Comment: PUTT ING UNDER DIFFERENT REQ Performed By: #### L 506.1000, L500.4050, L400.0001, L100.0100, L501.9985, M100.2200, L500.4100, L501.9520 #### [facility] [address] [place], [place], [id number] ([address] VLDL Normal 5-40 [facility] Comment on above: Order Comment: Order Date: 12/30/24Order Info: [id number] - CMPOrder Info: [id number] - LIPIDOrder Info: [id number] - MGOrder Info: [id number] - TSHOrder Info: [id number] - T4F Result Comment: PUTT ING UNDER DIFFERENT REQ Performed By: #### L 506.1000, L500.4050, L400.0001, L100.0100, L501.9985, M100.2200, L500.4100, L501.9520 #### [facility] [address] [place], [address] Lymphocytes Auto (Unsp spec) [#/Vol]Ordered By: Eduardo Baez on 12-30-2024 Lymphocytes (Bld) [#/Vol] 1.92 10*3/uL 0.83-4.51 [facility] Lymphocytes/100 WBC Auto (Un sp spec)Ordered By: Eduardo Baez on 12-30-2024 Lymphocytes/100 WBC (Bld) 18.1 % Low 19-41 [facility] MCV (mean corpuscular volume ) determinationOrdered By: Eduardo Baez on 12-30-2024 MCV (RBC) [Entitic vol] 91.7 fL 81-99 [facility] Magnesiumon 12-30-2024 Magnesium [Mass/Vol] 2.0 mg/dL Normal 1.5-2.2 [facility] Comment on above: Performed By: #### L 506.1000, L500.4050, L400.0001, L100.0100, L501.9985, M100.2200, L500.4100, L501.9520 #### [facility] [address] [place], [address] Magnesium (Unsp spec) [Mass/ Vol]Ordered By: Eduardo Baez on 12-30-2024 Magnesium [Mass/Vol] 2.0 mg/dL 1.5-2.2 [facility] Magnesium measurement (mass/ volume)Ordered By: Eduardo Baez on 12-30-2024 Magnesium (Unsp spec) [Mass/Vol] 2.0 mg/dL 1.5-2.2 [facility] Mean corpuscular hemoglobin (MCH) determinationOrdered By: Eduardo Baez on 12-30-2024 MCH (RBC) [Entitic mass] 29.8 pg 27.0-32.0 [facility] Mean corpuscular hemoglobin concentration (MCHC) determinationOrdered By: Eduardo Baez on 12-30-2024 MCHC (RBC) [Mass/Vol] 32.4 g/dL 32-36 [facility] Mean platelet volume determi nationOrdered By: Eduardo Baez on 12-30-2024 Platelet mean volume (Bld) [Entitic vol] 8.8 fL 6.2-12.0 [facility] Monocyte percentageOrdered B y: Eduardo Baez on 12-30-2024 Monocytes/100 WBC (Bld) 7.6 % 0-10 [facility] Neutrophil percentageOrdered By: Eduardo Baez on 12-30-2024 Neutrophils/100 WBC (Bld) 72.5 % High 47-70 [facility] Nucleated red blood cell per centageOrdered By: Eduardo Baez on 12-30-2024 Nucleated RBC/100 WBC (Bld) [Ratio] 0 % 0-5 [facility] Platelet countOrdered By: Radha Baez on 12-30-2024 Platelets (Bld) [#/Vol] 518 10*3/uL High 150-450 [facility] RBC Auto (Bld) [#/Vol]Ordere d By: Eduardo Baez on 12-30-2024 RBC (Bld) [#/Vol] 4.10 10*6/uL Low 4.2-5.[address] [facility] Screening total cholesterol/ high density lipoprotein (HDL) cholesterol ratioOrdered By: Eduardo Baez on 12-30-2024 Cholesterol.total/Amarilis sterol in HDL [Mass ratio] 5.22 {ratio} [facility] Serum globulin measurementOr dered By: Eduardo Baez on 12-30-2024 Globulin (S) [Mass/Vol] 3.1 g/dL 2.2-4.2 [facility] Serum glucose measurement (m ass/volume)Ordered By: Eduardo Baez on 12-30-2024 Glucose [Mass/Vol] 88 mg/dL 70-99 [facility] Serum or plasma alanine carlos otransferase (ALT) measurementOrdered By: Eduardo Baez on 12-30-2024 ALT [Catalytic activity/Vol] 19 U/L <35 [facility] Serum or plasma albumin oneyda urement (mass/volume)Ordered By: Eduardo Baez on 12-30-2024 Albumin [Mass/Vol] 3.8 g/dL 3.4-4.8 [facility] Serum or plasma albumin/glob ulin mass ratioOrdered By: Eduardo Baez on 12-30-2024 Albumin/Globulin [Mass ratio] 1.2 {ratio} 0.9-2.4 [facility] Serum or plasma alkaline jumana sphatase measurementOrdered By: Eduardo Baez on 12-30-2024 ALP [Catalytic activity/Vol] 66 U/L 35-104 [facility] Serum or plasma anion gap de termination (moles/volume)Ordered By: Eduardo Baez on 12-30-2024 Anion gap [Moles/Vol] 12 mmol/L 5-15 [facility] Serum or plasma calcium oneyda urement (mass/volume)Ordered By: Eduardo Baez on 12-30-2024 Calcium [Mass/Vol] 9.9 mg/dL 7.6-11.0 [facility] Serum or plasma cholesterol in HDL measurement (mass/volume)Ordered By: Eduardo Baez on 12-30-2024 Cholesterol in HDL [Mass/Vol] 47 mg/dL >40 [facility] Comment on above: National Cholesterol Education Program (NCEP) guidelines:<40 mg/dL: Low HDL-cholesterol (major risk factor for CHD)>= 60 mg/dL: High HDL-cholesterol (negative risk factor for CHD)HDL-cholesterol is affected by a number of factors, e.g. smoking, exercise, hormones, sex and age. Serum or plasma cholesterol measurement (mass/volume)Ordered By: Eduardo Baez on 12-30-2024 Cholesterol [Mass/Vol] 247 mg/dL High <201 [facility] Comment on above: Cholesterol level, D esirable <200 mg/dLBorderline high cholesterol 200-239 mg/dLHigh cholesterol >=240 mg/dLRecommendations of the NCEP Adult Treatment Panel for the following risk-cutoff thresholds for the [place] population. Serum or plasma creatinine m easurement (moles/volume)Ordered By: Eduardo Baez on 12-30-2024 Creatinine [Moles/Vol] 0.7 mg/dL 0.6-1.0 [facility] Serum or plasma potassium me asurementOrdered By: Eduardo Baez on 12-30-2024 Potassium [Moles/Vol] 3.9 mmol/L 3.3-5.1 [facility] Serum or plasma sodium measu rement (moles/volume)Ordered By: Eduardo Baez on 12-30-2024 Sodium [Moles/Vol] 138 mmol/L 133-145 [facility] Serum or plasma thyroperoxid ase antibody assay (units/volume)Ordered By: Eduardo Baez on 12-30-2024 TPO Ab Qn [IU]/mL 0- [facility] Comment on above: Performed at: [place] [id number] Director: Oswaldo Russ PhD, Phone: [phone] Serum or plasma urea nitroge n measurement (mass/volume)Ordered By: Eduardo Baez on 12-30-2024 Urea nitrogen [Mass/Vol] 19 mg/dL 4- [facility] T4 Free Directon 12-30-2024 T4 FREE DIRECT 1.10 ng/dL Normal 0.76-1.46 [facility] Comment on above: Performed By: #### L 506.1000, L500.4050, L400.0001, L100.0100, L501.9985, M100.2200, L500.4100, L501.9520 #### [facility] [address] [place], [address] T4 freeOrdered By: Eduardo anderson on 12-30-2024 Free T4 [Mass/Vol] 1.10 ng/dL 0.76-1.46 [facility] TPO Ab QnOrdered By: Eduardo joe on 12-30-2024 Thyroid Peroxidase Antibodies < 9 IU/mL 0- [facility] Comment on above: Performed at: [facility] [id number] [place], [place] [id number] Director: Oswaldo Russ PhD, Phone: [phone] TSH DL <= 0.005 mIU/L QnOrde red By: Eduardo Baez on 12-30-2024 Thyroid Stimulating Hormone (TSH) 0.872 uIU/mL 0.300-4.200 [facility] TSH Qn 0.872 uIU/mL 0.300-4.200 [facility] Thyroglobulin Ab serumOrdere d By: Eduardo Baez on 12-30-2024 Thyroglobulin Antibody < 1.0 IU/mL 0.0-0.9 [facility] Comment on above: Thyroglobulin Antibo dy measured by Mariel CoulterMethodologyIt should be noted that the presence of thyroglobulinantibodies may not be pathogenic nor diagnostic, especiallyat very low levels. The assay armament mechanic has found thatfour percent of individuals without evidence of thyroiddisease or autoimmunity will have positive TgAb levels upto 4 IU/mL. Thyroglobulin serOrdered By: Eduardo Baez on 12-30-2024 Thyroglobulin Level 3.4 ng/mL 1.5-38.[address] [facility] Comment on above: According to the [place] [employer],the reference interval for Thyroglobulin (TG) should berelated to euthyroid patients and not for patients whounderwent thyroidectomy. TG reference intervals for thesepatients depend on the residual mass of the thyroid tissueleft after surgery. Establishing a post-operative baselineis recommended. The assay limit of quantitation is 0.1ng/mLThyroglobulin measured by Mariel Concepcion [employer]Ass[employer] Thyroid Stim Hormone (TSH)on 12-30-2024 TSH 0.872 uIU/mL Normal 0.300-4.200 [facility] Comment on above: Performed By: #### L 506.1000, L500.4050, L400.0001, L100.0100, L501.9985, M100.2200, L500.4100, L501.9520 #### [facility] [address], [address] Total proteinOrdered By: Rodriguez Baez on 12-30-2024 Protein [Mass/Vol] 6.9 g/dL 5.9-8.4 [facility] Triglycerides measurementOrd ered By: Eduardo Baez on 12-30-2024 Triglyceride [Mass/Vol] 237 mg/dL High <199 [facility] Comment on above: The drugs N-Acetylcy steine and Metamizole may falsely depress this assay. Normal range: <150 mg/dLBorderline High: 150-199 mg/dLHigh: 200-499 mg/dLVery High: >500 mg/dL Urinalysis, Completeon 12-30 BACTERIA 0 SEEN Normal None Seen [facility] Comment on above: Order Comment: CLEAN CATCH Result Comment: This specimen has been REJECTED due to Laboratory criteria: Contaminated/Leaked. LAB has been notified of need of recollection. 12/30/24 1308 Miranda Clapper Performed By: #### L 400.0001 #### [facility] [address] [place], [address] EPI,SQUAMOUS 0 SEEN Normal 5-10 [facility] Comment on above: Order Comment: CLEAN CATCH Result Comment: This specimen has been REJECTED due to Laboratory criteria: Contaminated/Leaked. LAB has been notified of need of recollection. 12/30/24 1308 Miranda Clapper Performed By: #### L 400.0001 #### [facility] [address] [place], [address] Mucus Ql (Urine sed) 0 SEEN Normal [facility] Comment on above: Order Comment: CLEAN CATCH Result Comment: This specimen has been REJECTED due to Laboratory criteria: Contaminated/Leaked. LAB has been notified of need of recollection. 12/30/24 1308 Miranda Clapper Performed By: #### L 400.0001 #### [facility] [address] [place], [address] WBC 0 SEEN Normal 0-5 [facility] Comment on above: Order Comment: CLEAN CATCH Result Comment: This specimen has been REJECTED due to Laboratory criteria: Contaminated/Leaked. LAB has been notified of need of recollection. 12/30/24 1308 Miranda Clapper Performed By: #### L 400.0001 #### [facility] [address] [place], [address] BILIRUBIN URINE Normal Negative [facility] Comment on above: Order Comment: CLEAN CATCH Result Comment: This specimen has been REJECTED due to Laboratory criteria: Contaminated/Leaked. LAB has been notified of need of recollection. 12/30/24 1308 Miranda Clapper Performed By: #### L 400.0001 #### [facility] [address] [place], [address] Clarity (U) Normal Clear [facility] Comment on above: Order Comment: CLEAN CATCH Result Comment: This specimen has been REJECTED due to Laboratory criteria: Contaminated/Leaked. LAB has been notified of need of recollection. 12/30/24 1308 Miranda Clapper Performed By: #### L 400.0001 #### [facility] [address] [place], [address] Color (U) Normal Yellow [facility] Comment on above: Order Comment: CLEAN CATCH Result Comment: This specimen has been REJECTED due to Laboratory criteria: Contaminated/Leaked. LAB has been notified of need of recollection. 12/30/24 1308 Miranda Clapper Performed By: #### L 400.0001 #### [facility] [address] [place], [address] GLUCOSE, UR Normal Normal [facility] Comment on above: Order Comment: CLEAN CATCH Result Comment: This specimen has been REJECTED due to Laboratory criteria: Contaminated/Leaked. LAB has been notified of need of recollection. 12/30/24 1308 Miranda Clapper Performed By: #### L 400.0001 #### [facility] [address] [place], [address] KETONE UR Normal Negative [facility] Comment on above: Order Comment: CLEAN CATCH Result Comment: This specimen has been REJECTED due to Laboratory criteria: Contaminated/Leaked. LAB has been notified of need of recollection. 12/30/24 1308 Miranda Clapper Performed By: #### L 400.0001 #### [facility] [address] [place], [address] LEUK ESTERASE Normal Negative [facility] Comment on above: Order Comment: CLEAN CATCH Result Comment: This specimen has been REJECTED due to Laboratory criteria: Contaminated/Leaked. LAB has been notified of need of recollection. 12/30/24 1308 Miranda Clapper Performed By: #### L 400.0001 #### [facility] [address] [place], [address] Nitrite Ql (U) Normal Negative [facility] Comment on above: Order Comment: CLEAN CATCH Result Comment: This specimen has been REJECTED due to Laboratory criteria: Contaminated/Leaked. LAB has been notified of need of recollection. 12/30/24 1308 Miranda Clapper Performed By: #### L 400.0001 #### [facility] [address] [place], [address] OCCULT BLOOD-UR Normal Negative [facility] Comment on above: Order Comment: CLEAN CATCH Result Comment: This specimen has been REJECTED due to Laboratory criteria: Contaminated/Leaked. LAB has been notified of need of recollection. 12/30/24 1308 Miranda Clapper Performed By: #### L 400.0001 #### [facility] [address] [place], [address] pH UR Normal 5.0 - 8.0 [facility] Comment on above: Order Comment: CLEAN CATCH Result Comment: This specimen has been REJECTED due to Laboratory criteria: Contaminated/Leaked. LAB has been notified of need of recollection. 12/30/24 1308 Miranda Clapper Performed By: #### L 400.0001 #### [facility] [address] [place], [address] PROT DIPSTX Normal Negative [facility] Comment on above: Order Comment: CLEAN CATCH Result Comment: This specimen has been REJECTED due to Laboratory criteria: Contaminated/Leaked. LAB has been notified of need of recollection. 12/30/24 1308 Miranda Clapper Performed By: #### L 400.0001 #### [facility] [address] [place], [address] RBC Normal 0-5 [facility] Comment on above: Order Comment: CLEAN CATCH Result Comment: This specimen has been REJECTED due to Laboratory criteria: Contaminated/Leaked. LAB has been notified of need of recollection. 12/30/24 1308 Miranda Clapper Performed By: #### L 400.0001 #### [facility] [address] [facility] [address] SP.GR. DIPSTX Normal 1.002-1.030 [facility] Comment on above: Order Comment: CLEAN CATCH Result Comment: This specimen has been REJECTED due to Laboratory criteria: Contaminated/Leaked. LAB has been notified of need of recollection. 12/30/24 1308 Miranda Clapper Performed By: #### L 400.0001 #### [facility] [address] [facility] [address] UR Preservative Normal [facility] Comment on above: Order Comment: CLEAN CATCH Result Comment: This specimen has been REJECTED due to Laboratory criteria: Contaminated/Leaked. LAB has been notified of need of recollection. 12/30/24 1308 Miranda Clapper Performed By: #### L 400.0001 #### [facility] [address] [facility] [address] UROBILI Normal Normal [facility] Comment on above: Order Comment: CLEAN CATCH Result Comment: This specimen has been REJECTED due to Laboratory criteria: Contaminated/Leaked. LAB has been notified of need of recollection. 12/30/24 1308 Miranda Clapper Performed By: #### L 400.0001 #### [facility] [address] [facility] [address] White blood cell (WBC) count Ordered By: Eduardo Baez on 12-30-2024 WBC (Bld) [#/Vol] 10.6 10*3/uL 4.4-11.[address] [facility] - Microbiology an d Antimicrobial susceptibilityOrdered By: Demarcus Fischer on 12-19-2024 SARS-CoV-2 (COVID-19) RNA PA+probe Ql (Unsp spec) Detected [facility] No Panel InformationOrdered By: Demarcus Fischer on 12-19-2024 Influenza Types A,B Rapid (Clinic) Negative [facility] Urgent Care Visit Reporton 0 12-19-2024 Urgent Care Visit Report [facility] [address], [address] [place] [address] OFFICE VISIT Date of Service: 12/19/24 MR#: [id number] Acct: [id number] Name: KAVEH PORTILLO Rep #: [id number] : 1945 Provider: BIRGIT Sotomayor Age/Sex: 79/F Location: [facility] Status: Signed Intake Vital Signs 10/31/24 10:06 12/19/24 10:01 Height 5 ft 2 in BP 152/80 H 122/88 H Blood Pressure Location Lt brachial Position Sitting Sitting Respiration 15 Pulse 92 79 Pulse Source NIBP Temp 98.2 F 97.5 F L Temp Source Oral Oral Pulse Oximetry (%) 97 97 Oxygen Delivery Method room air room air Intake Visit Reasons: CONCERN FOR FLU Accompanied by: Sister Allergies No Known Allergies Allergy (Verified 12/19/24 10:07) Medications ???Medication ???Instructions ???Recorded ???Confirmed ???Type omeprazole 40 mg capsule,delayed 40 mg PO DAILY 09/26/21 12/19/24 H istory release lisinopril 40 mg tablet 40 mg PO DAILY #90 tabs 01/18/22 0 12/19/24 Rx triamterene 75 1 tab PO DAILY #90 tabs 05/10/22 0 12/19/24 Rx mg-hydrochlorothiazide 50 mg tablet paroxetine HCl 30 mg tablet 30 mg PO QDAY 10/31/24 12/19/24 Hi story dexamethasone 6 mg tablet 6 mg PO DAILY #7 tabs 12/19/24 Rx Have you fallen in the past year?: No Nurse's Note: Patient has BA,ST,CHINCHILLA and fever that has been going on for 3 days. PFSH Medical History Hypertension Obesity (BMI 30.0-34.9) URI (upper respiratory infection) Health care maintenance Bilateral impacted cerumen Hyperlipidemia Urinary incontinence Cataracts, bilateral Surgical History H/O: hysterectomy Family History Other CVA (cerebral vascular accident) Colon cancer Diabetes Heart disease Social History Smoking Status: Never smoker alcohol intake: never substance use type: does not use HPI HPI Details: KAVEH PORTILLO, is a 79 F who presents to the office today for complaint of bodyaches, sore throat and headache as well as a fever for the past 3 days. Patient states mostly being concerned for influenza. Patient denies nausea, vomiting or diarrhea. No hemoptysis, shortness of breath or difficulty breathing. No loss of taste or smell. No other associated symptoms or alleviating/aggravating factors. ROS Const Constitutional: No other (6 system ROS completed with pertinent findings in the HPI otherwise normal.) Exam Const General: cooperative and well developed HENMT Head: normal to inspection and atraumatic Ears: hearing grossly normal bilaterally Nose: nasal discharge clear Face and sinus: normal facial exam Mouth: oral mucosae normal Throat: abnormal tonsil bilaterally hypertrophy 1+ Resp Effort Inspection: normal respiratory effort and no audible wheezes Auscultation: Bilateral: Clear to Auscultation Cardio Palpation: normal PMI Rate: regular rate Rhythm: regular rhythm Neuro General: patient alert and CN's II-XI intact bilaterally Psych Appearance: grossly normal Mental Status: mental status grossly normal Results POC FLU A B Office Flu A B Negative FLU A B Last Edit by Freda Agarwal MA on 12/19/24 10:18 POC WOO CoV-2 PCR POC WOO CoV-2 PCR Detected Last Edit by Freda Agarwal MA on 12/19/24 10:18 Coding Level of Care Code Off vis,est,level 3 Diagnoses COVID-19 U07.1 Assessment and Plan Assessment and Plan (1) COVID-19: Status: Acute Plan: Patient tested positive for COVID in the office today. Decadron as prescribed today. Encouraged to get plenty of rest, drink lots of clear liquids, and use Tylenol or Ibuprofen (unless contraindicated) for fever and comfort. Patient also educated on other symptomatic management techniques. To be seen in 7-10 days if no improvement; sooner if worsening of symptoms. Patient advised of potential red flags and when appropriate to report to the ED. Patient verbalized understanding and agreement with all the above. Orders: Orders POC FLU A B Today R52 - Pain, unspecified POC Rapid WOO Cov-2 PCR Today R52 - Pain, unspecified Medications: New dexamethasone 6 mg PO DAILY 7 tabs 0RF Clinical Quality Measures Falls Risk Screening/Assistive Devices Have you fallen in the past year?: No 12/19/24 1124 Date Demarcus Neely Signature: Date (if applicable) CC: Normal [facility] Culture, Blood (WB)on 2024 CUB No growth in 5 days. Normal [facility] Comment on above: Performed By: #### L 506.1000, L500.4050, L400.0001, L100.0100, L501.9985, M100.2200, L500.4100, L501.9520 #### [facility] [address] [place], [address] Culture, Blood (WB)on 2024 CUB No growth in 5 days. Normal [facility] Comment on above: Performed By: #### L 506.1000, L500.4050, L400.0001, L100.0100, L501.9985, M100.2200, L500.4100, L501.9520 #### [facility] [address] [place], [address] Urine Cultureon 11-11-2024 URC Below infection leve l. Gram negative teetee [place] Count <1000 Normal [facility] Comment on above: Performed By: #### L 506.1000, L500.4050, L400.0001, L100.0100, L501.9985, M100.2200, L500.4100, L501.9520 #### [facility] [address] [place], [address] Abdomen/Pelvis WITH Contrast on 11-10-2024 Abdomen/Pelvis WITH Contrast [facility] [address] [place] [address] Abdomen/Pelvis WITH Contrast MR#: [id number] Acct: [id number] Name: KAVEH PORTILLO Rep #: [id number] : 1945 F 79 From: Byron Nascimento PCP: Dr. Jovani Oliva MD Status: [facility] Study: Abdomen/Pelvis WITH Contrast Date of Exam: 04/29 Exam# [id number] Ordering Dr: Jovani Oliva MD [id number] STUDY: CT ABDOMEN AND PELVIS WITH CONTRAST REASON FOR EXAM: Female, 79 years old. ABD PAIN RADIATION DOSAGE (If Supplied By Facility): CTDIvol = ( 18.92 ) mGy, DLP = ( 817.84 ) mGycm TECHNIQUE: Transaxial images were obtained from the dome of the diaphragm to the symphysis pubis without oral contrast. IV 100mL Isovue-[id number] was administered. Sagittal and coronal images were reconstructed. Individualized dose optimization techniques were used for this CT. The protocol utilizes one or more of the following dose reduction techniques: automated exposure control, adjustment of mA and/or kV according to patient size,and/or use of iterative reconstruction technique. COMPARISON: None. FINDINGS: The visualized lung bases are unremarkable. The visualized portions of the heart are within normal limits. Normal liver. Normal gallbladder and extrahepatic biliary system. Normal spleen. Normal pancreas. Normal bilateral adrenal glands. Normal right kidney. Normal left kidney. Moderate hiatal hernia. Normal small intestine. Colonic diverticulosis. The appendix is visualized and appears normal. Calcified plaque along the aorta and its branches. Retroaortic left renal vein. Normal inferior vena cava. Normal retroperitoneum. Normal urinary bladder. Fat-containing umbilical hernia. Grade [address]isthesis L4-5. CT/Abdomen/Pelvis WITH Contrast IMPRESSION: Moderate hiatal hernia. No acute disease. Electronically Signed: Byron Barth MD at 19:48 EST , CC: Dr. Jovani Oliva MD Practice Physician: Signed Normal [facility] Albumin to globulin ratioOrd ered By: Jovani Oliva on 11-10-2024 Albumin/Globulin [Mass ratio] 1.0 {ratio} 0.9-2.4 [facility] Amylaseon 11-10-2024 ALEC 40 U/L Normal 25-115 [facility] Comment on above: Performed By: #### L 506.1000, L500.4050, L400.0001, L100.0100, L501.9985, M100.2200, L500.4100, L501.9520 #### [facility] [address] [place], [address] Bacteria LM.HPF (Urine sed) [#/Area]Ordered By: Jovani Oliva on 11-10-2024 Urine Bacteria RARE /hpf None Seen [facility] Bilirubin Test strip Ql (U)O rdered By: Jovani Oliva on 11-10-2024 Bilirubin Ql (U) 1 mg/dL High Negative [facility] Comment on above: COLOR OF URINE MAY A FFECT DIPSTICK RESULTS. Bilirubin, totalOrdered By: Jovani Oliva on 11-10-2024 Bilirubin [Mass/Vol] 0.50 mg/dL 0.20-1.00 [facility] Comment on above: For patients on eltr ombopag therapy, use of Dimension [place] TBIL is not recommended. Blood cultureOrdered By: Jovani Oliva on 11-10-2024 Bacteria identified Cx Nom (Bld) No growth in 5 days. [facility] Blood urea nitrogen (BUN)/cr eatinine ratioOrdered By: Jovani Oliva on 11-10-2024 Urea nitrogen/Creatinine [Mass ratio] 14.0 mg/mg 10-20 [facility] Brain/Head without Contrasto n 11-10-2024 Brain/Head without Contrast [facility] [address] [place] [address] Brain/Head without Contrast MR#: [id number] Acct: [id number] Name: KAVEH PORTILLO Rep #: [id number] : 1945 F 79 From: Byron Nascimento PCP: Dr. Jovani Oliva MD Status: [facility] Study: Brain/Head without Contrast Date of Exam: 04/29 Exam# [id number] Ordering Dr: Jovani Oliva MD [id number] STUDY: CT BRAIN WITHOUT CONTRAST REASON FOR EXAM: Female, 79 years old. HEADACHE RADIATION DOSAGE (If Supplied By Facility): CTDIvol = ( 44.99 ) mGy, DLP = ( 812.98 ) mGycm TECHNIQUE: Transaxial CT imaging of the brain was performed without administration of intravenous contrast material. Individualized dose optimization techniques were used for this CT. The protocol utilizes one or more of the following dose reduction techniques: automated exposure control, adjustment of mA and/or kV according to patient size,and/or use of iterative reconstruction technique. COMPARISON: No relevant priors. FINDINGS: Normal soft tissue structures. Normal calvarium. Normal size ventricles and extra-axial spaces for the patient''s age. Normal white matter tracts of the cerebral hemispheres. Normal basal ganglia and thalami. Normal brainstem. Normal cerebellum. There is no intracranial hemorrhage. There are no findings of an acute ischemic infarction. Air-fluid level sphenoid sinus and millimeters calcific density. Exostosis outer table left occipital bone. CT/Brain/Head without Contrast IMPRESSION: Acute and chronic sphenoid sinusitis. Otherwise no acute intracranial disease. Electronically Signed: Byron Barth MD at 20:03 EST , CC: Dr. Jovani Oliva MD Practice Physician: Signed Normal [facility] CBC-Complete Blood Cnt No Di ffon 11-10-2024 Erythrocyte distribution width (RBC) [Ratio] 12.8 % Normal 11.6-14.6 [facility] Comment on above: Performed By: #### L 506.1000, L500.4050, L400.0001, L100.0100, L501.9985, M100.2200, L500.4100, L501.9520 #### [facility] [address], [address] Hematocrit (Bld) [Volume fraction] 43.8 % Normal 37-47 [facility] Comment on above: Performed By: #### L 506.1000, L500.4050, L400.0001, L100.0100, L501.9985, M100.2200, L500.4100, L501.9520 #### [facility] [address], [address] Hemoglobin (Bld) [Mass/Vol] 14.4 g/dL Normal 12.0-15.0 [facility] Comment on above: Performed By: #### L 506.1000, L500.4050, L400.0001, L100.0100, L501.9985, M100.2200, L500.4100, L501.9520 #### [facility] [address] [place], [address] MCH (RBC) [Entitic mass] 28.9 pg Normal 27.0-32.0 [facility] Comment on above: Performed By: #### L 506.1000, L500.4050, L400.0001, L100.0100, L501.9985, M100.2200, L500.4100, L501.9520 #### [facility] [address] [place], [address] MCHC (RBC) [Mass/Vol] 32.9 g/dL Normal 32-36 [facility] Comment on above: Performed By: #### L 506.1000, L500.4050, L400.0001, L100.0100, L501.9985, M100.2200, L500.4100, L501.9520 #### [facility] [address] [place], [address] MCV (RBC) [Entitic vol] 87.8 fL Normal 81-99 [facility] Comment on above: Performed By: #### L 506.1000, L500.4050, L400.0001, L100.0100, L501.9985, M100.2200, L500.4100, L501.9520 #### [facility] [address], [address] Platelet mean volume (Bld) [Entitic vol] 8.7 fL Normal 6.2-12.0 [facility] Comment on above: Performed By: #### L 506.1000, L500.4050, L400.0001, L100.0100, L501.9985, M100.2200, L500.4100, L501.9520 #### [facility] [address], [address] Platelets (Bld) [#/Vol] 412 10*3/uL Normal 150-450 [facility] Comment on above: Performed By: #### L 506.1000, L500.4050, L400.0001, L100.0100, L501.9985, M100.2200, L500.4100, L501.9520 #### [facility] [address] [place], [address] RBC (Bld) [#/Vol] 4.99 10*6/uL Normal 4.2-5.[address] [facility] Comment on above: Performed By: #### L 506.1000, L500.4050, L400.0001, L100.0100, L501.9985, M100.2200, L500.4100, L501.9520 #### [facility] [address], [address] RDW SD 41.1 fl Normal 35.1-43.9 [facility] Comment on above: Performed By: #### L 506.1000, L500.4050, L400.0001, L100.0100, L501.9985, M100.2200, L500.4100, L501.9520 #### [facility] [address], [address] WBC (Bld) [#/Vol] 7.1 10*3/uL Normal 4.4-11.0 [facility] Comment on above: Performed By: #### L 506.1000, L500.4050, L400.0001, L100.0100, L501.9985, M100.2200, L500.4100, L501.9520 #### [facility] [address], [address] Carbon dioxide measurementOr dered By: Jovani Oliva on 11-10-2024 CO2 [Moles/Vol] 26.0 mmol/L 21.0-32.0 [facility] Chest PA and Lateralon 11-10 Chest PA and Lateral [facility] [address] [place] [address] Chest PA and Lateral MR#: [id number] Acct: [id number] Name: KAVEH PORTILLO Rep #: [id number] : 1945 F 79 From: Byron Nascimento PCP: Dr. Jovani Oliva MD Status: REG CLI Study: Chest PA and Lateral Date of Exam: 11/10/24 Exam# [id number] Ordering Dr: Jovani Oliva MD [id number] STUDY: X-RAY CHEST REASON FOR EXAM: Female, 79 years old. CONGESTION OF RESP TRACT TECHNIQUE: Frontal and lateral views of the chest. COMPARISON: CT chest August 08, 2022 FINDINGS: Lungs are hyperaerated. The lungs are clear and expanded. There is no demonstrated pleural abnormality. Normal size heart. Normal mediastinum and mel. Normal visualized pulmonary arteries. Normal visualized aortic arch and descending thoracic aorta. Normal visualized thoracic spine. Normal visualized ribs, clavicles, and shoulders. There is no demonstrated abnormality of the visualized soft tissue structures of the upper abdomen. RAD/Chest PA and Lateral IMPRESSION: COPD Electronically Signed: Byron Barth MD at 20:17 EST , CC: Dr. Jovani Oliva MD Practice Physician: Signed Normal [facility] Chloride measurementOrdered By: Jovani Oliva on 11-10-2024 Chloride [Moles/Vol] 100 mmol/L 98-107 [facility] Comprehensive Metabolic Prof ilon 11-10-2024 Albumin [Mass/Vol] 3.9 g/dL Normal 3.2-5.0 [facility] Comment on above: Performed By: #### L 506.1000, L500.4050, L400.0001, L100.0100, L501.9985, M100.2200, L500.4100, L501.9520 #### [facility] [address] [place], [address] Albumin/Globulin [Mass ratio] 1.0 {ratio} Normal 0.9-2.4 [facility] Comment on above: Performed By: #### L 506.1000, L500.4050, L400.0001, L100.0100, L501.9985, M100.2200, L500.4100, L501.9520 #### [facility] [address], [address] ALK P 83 U/L Normal 45-117 [facility] Comment on above: Performed By: #### L 506.1000, L500.4050, L400.0001, L100.0100, L501.9985, M100.2200, L500.4100, L501.9520 #### [facility] [address], [address] ALT [Catalytic activity/Vol] 33 U/L Normal 13-56 [facility] Comment on above: Performed By: #### L 506.1000, L500.4050, L400.0001, L100.0100, L501.9985, M100.2200, L500.4100, L501.9520 #### [facility] [address] [place], [address] AST [Catalytic activity/Vol] 29 U/L Normal 15-37 [facility] Comment on above: Performed By: #### L 506.1000, L500.4050, L400.0001, L100.0100, L501.9985, M100.2200, L500.4100, L501.9520 #### [facility] [address] [place], [address] Bilirubin [Mass/Vol] 0.50 mg/dL Normal 0.20-1.00 [facility] Comment on above: Result Comment: For patients on eltrombopag therapy, use of Dimension [place] TBIL is not recommended. Performed By: #### L 506.1000, L500.4050, L400.0001, L100.0100, L501.9985, M100.2200, L500.4100, L501.9520 #### [facility] [address], [address] BUN/CRE 14.0 RATIO Normal 10-20 [facility] Comment on above: Performed By: #### L 506.1000, L500.4050, L400.0001, L100.0100, L501.9985, M100.2200, L500.4100, L501.9520 #### [facility] [address] [place], [address] CA,Total 9.6 mg/dL Normal 8.5-10.1 [facility] Comment on above: Performed By: #### L 506.1000, L500.4050, L400.0001, L100.0100, L501.9985, M100.2200, L500.4100, L501.9520 #### [facility] [address] [place], [address] Chloride [Moles/Vol] 100 mmol/L Normal 98-107 [facility] Comment on above: Performed By: #### L 506.1000, L500.4050, L400.0001, L100.0100, L501.9985, M100.2200, L500.4100, L501.9520 #### [facility] [address] [place], [address] CO2 [Moles/Vol] 26.0 mmol/L Normal 21.0-32.0 [facility] Comment on above: Performed By: #### L 506.1000, L500.4050, L400.0001, L100.0100, L501.9985, M100.2200, L500.4100, L501.9520 #### [facility] [address] [place], [address] Creatinine [Mass/Vol] 0.78 mg/dL Normal 0.55-1.02 [facility] Comment on above: Result Comment: The validity of the calculated GFR GFRAA in patients over 70 years has not been determined. Clinical correlation is essential. Performed By: #### L 506.1000, L500.4050, L400.0001, L100.0100, L501.9985, M100.2200, L500.4100, L501.9520 #### [facility] [address] [place], [address] EST GFR - AA 91 mL/min Normal >60 [facility] Comment on above: Result Comment: Afri can [place] GFR Calc Performed By: #### L 506.1000, L500.4050, L400.0001, L100.0100, L501.9985, M100.2200, L500.4100, L501.9520 #### [facility] [address] [place], [address] GAP 10 Normal 5-15 [facility] Comment on above: Performed By: #### L 506.1000, L500.4050, L400.0001, L100.0100, L501.9985, M100.2200, L500.4100, L501.9520 #### [facility] [address], [address] GFR/1.73 sq M.predicted among non-blacks MDRD (S/P/Bld) [Vol rate/Area] 75 mL/min/{1.73_m2} Normal >60 [facility] Comment on above: Result Comment: Non- GFR Calc Performed By: #### L 506.1000, L500.4050, L400.0001, L100.0100, L501.9985, M100.2200, L500.4100, L501.9520 #### [facility] [address] [place], [address] Globulin (S) [Mass/Vol] 4.0 g/dL Normal 2.2-4.2 [facility] Comment on above: Performed By: #### L 506.1000, L500.4050, L400.0001, L100.0100, L501.9985, M100.2200, L500.4100, L501.9520 #### [facility] [address] [place], [address] Glucose [Mass/Vol] 120 mg/dL High 74-106 [facility] Comment on above: Result Comment: Fast ing Glucose result from 100 to 125 mg/dL suggests IMPAIRED HOMEOSTASIS per A.D.A. criteria. Performed By: #### L 506.1000, L500.4050, L400.0001, L100.0100, L501.9985, M100.2200, L500.4100, L501.9520 #### [facility] [address], [address] Potassium [Moles/Vol] 2.9 mmol/L Low 3.5-5.1 [facility] Comment on above: Performed By: #### L 506.1000, L500.4050, L400.0001, L100.0100, L501.9985, M100.2200, L500.4100, L501.9520 #### [facility] [address] [place], [address] Sodium [Moles/Vol] 136 mmol/L Normal 136-145 [facility] Comment on above: Performed By: #### L 506.1000, L500.4050, L400.0001, L100.0100, L501.9985, M100.2200, L500.4100, L501.9520 #### [facility] [address], [address] T PROT 7.9 g/dL Normal 6.4-8.2 [facility] Comment on above: Performed By: #### L 506.1000, L500.4050, L400.0001, L100.0100, L501.9985, M100.2200, L500.4100, L501.9520 #### [facility] [address] [place], [id number] (915) Urea nitrogen [Mass/Vol] 11 mg/dL Normal 7-18 [facility] Comment on above: Performed By: #### L 506.1000, L500.4050, L400.0001, L100.0100, L501.9985, M100.2200, L500.4100, L501.9520 #### [facility] [address] [place], [address] Epithelial cells.squamous LM Ql (Urine sed)Ordered By: Jovani Oliva on 11-10-2024 Epithelial cells.squamous LM.HPF (Urine sed) [#/Area] 0 /[HPF] 5-10 [facility] Erythrocyte distribution wid th ratioOrdered By: Jovani Oliva on 11-10-2024 Erythrocyte distribution width (RBC) [Ratio] 12.8 % 11.6-14.6 [facility] Erythrocyte distribution wid th standard deviationOrdered By: Jovani Oliva on 11-10-2024 Erythrocyte distribution width (RBC) [Entitic vol] 41.1 fL 35.1-43.9 [facility] Estimated glomerular filtrat ion rate (GFR) AmericanOrdered By: Jovani Oliva on 11-10-2024 Estimated GFR (MDRD) Amer 91 mL/min >60 [facility] Comment on above: GFR Calc Glomerular filtration rate ( GFR) estimationOrdered By: Jovani Oliva on 11-10-2024 Estimated GFR (MDRD) Non-Af Amer 75 mL/min >60 [facility] Comment on above: Non- GFR Calc Glucose Ql (U)Ordered By: Jayy Oliva on 11-10-2024 Urine Glucose (UA) Normal mg/dl Normal [facility] Glucose measurementOrdered B y: Jovani Oliva on 11-10-2024 Glucose [Mass/Vol] 120 mg/dL High 74-106 [facility] Comment on above: Fasting Glucose resu lt from 100 to 125 mg/dL suggests IMPAIRED HOMEOSTASIS per A.D.A. criteria. Hematocrit Auto (Bld) [Volum e fraction]Ordered By: Jovani Oliva on 11-10-2024 Hematocrit (Bld) [Volume fraction] 43.8 % 37-47 [facility] Hemoglobin measurementOrdere d By: Jovani Oliva on 11-10-2024 Hemoglobin (Bld) [Mass/Vol] 14.4 g/dL 12.0-15.0 [facility] Influenza virus A and B and SARS-CoV-2 (COVID-19) and Respiratory syncytial virus RNAOrdered By: Jovani Oliva on 11-10-2024 SARS-CoV-2 (COVID-19) RNA PA+probe Ql (Unsp spec) [facility] Ketones Test strip Ql (U)Ord ered By: Jovani Oliva on 11-10-2024 Ketones Ql (U) 50 mg/dl High Negative [facility] - Chemistry and C hemistry - challengeOrdered By: Jovani Oliva on 11-10-2024 AST [Catalytic activity/Vol] 29 U/L 15-37 [facility] Lipaseon 11-10-2024 Lipase [Catalytic activity/Vol] 72 U/L Normal 13-75 [facility] Comment on above: Result Comment: Shabbir whiting note: LIPASE revised reference range effective 23. New Lipase methodology. Expected to produce lower values than the previous assay method. NEW Reference Range: 13 - 75 U/L Performed By: #### L 506.1000, L500.4050, L400.0001, L100.0100, L501.9985, M100.2200, L500.4100, L501.9520 #### [facility] [address] [place], [place], [id number] Lipase measurementOrdered By : Jovani Oliva on 11-10-2024 Lipase [Catalytic activity/Vol] 72 U/L 13-75 [facility] Comment on above: Please note:LIPASE r evised reference range effective 23. New Lipase methodology. Expected to produce lower values than the previous assay method. NEW Reference Range: 13 - 75 U/L M100.678on 11-10-2024 M100.678 Pending SARS-CoV-2 (COVID 19) Negative INFLUENZA A Negative INFLUENZA B Negative RSV PCR Negative Normal [facility] Comment on above: Performed By: #### L 506.1000, L500.4050, L400.0001, L100.0100, L501.9985, M100.2200, L500.4100, L501.9520 #### [facility] [address] [place], [place], [id number] MCV (mean corpuscular volume ) determinationOrdered By: Jovani Oliva on 11-10-2024 MCV (RBC) [Entitic vol] 87.8 fL 81-99 [facility] Mean corpuscular hemoglobin (MCH) determinationOrdered By: Jovani Oliva on 11-10-2024 MCH (RBC) [Entitic mass] 28.9 pg 27.0-32.0 [facility] Mean corpuscular hemoglobin concentration (MCHC) determinationOrdered By: Jovani Oliva on 11-10-2024 MCHC (RBC) [Mass/Vol] 32.9 g/dL 32-36 [facility] Mean platelet volume determi nationOrdered By: Jovani Oliva on 11-10-2024 Platelet mean volume (Bld) [Entitic vol] 8.7 fL 6.2-12.0 [facility] Microscopic analysis of urin e for red blood cells (RBC)Ordered By: Jovani Oliva on 11-10-2024 Urine RBC 0-5 SEEN /hpf 0-5 [facility] Mucus LM Ql (Urine sed)Order ed By: Jovani Oliva on 11-10-2024 Mucus Ql (Urine sed) 0 SEEN /hpf [facility] Nitrite Test strip Ql (U)Ord ered By: Jovani Oliva on 11-10-2024 Nitrite Ql (U) Negative Negative [facility] Platelet countOrdered By: Jayy Oliva on 11-10-2024 Platelets (Bld) [#/Vol] 412 10*3/uL 150-450 [facility] Potassium measurementOrdered By: Jovani Oliva on 11-10-2024 Potassium [Moles/Vol] 2.9 mmol/L Low 3.5-5.1 [facility] Protein Test strip Ql (U)Ord ered By: Jovani Oliva on 11-10-2024 Protein Ql (U) 100 mg/dl High Negative [facility] RBC Auto (Bld) [#/Vol]Ordere d By: Jovani Oliva on 11-10-2024 RBC (Bld) [#/Vol] 4.99 10*6/uL 4.2-5.[address] [facility] Serum anion gap measurementO rdered By: Jovani Oliva on 11-10-2024 Anion gap [Moles/Vol] 10 mmol/L 5-15 [facility] Serum globulin measurementOr dered By: Jovani Oliva on 11-10-2024 Globulin (S) [Mass/Vol] 4.0 g/dL 2.2-4.2 [facility] Serum or plasma alanine carlos otransferase (ALT) measurementOrdered By: Jovani Oliva on 11-10-2024 ALT [Catalytic activity/Vol] 33 U/L 13-56 [facility] Serum or plasma albumin oneyda urement (mass/volume)Ordered By: Jovani Oliva on 11-10-2024 Albumin [Mass/Vol] 3.9 g/dL 3.2-5.0 [facility] Serum or plasma alkaline jumana sphatase measurementOrdered By: Jovani Oliva on 11-10-2024 ALP [Catalytic activity/Vol] 83 U/L 45-117 [facility] Serum or plasma amylase oneyda urement (enzymatic activity/volume)Ordered By: Jovani Oliva on 11-10-2024 Amylase [Catalytic activity/Vol] 40 U/L 25-115 [facility] Serum or plasma calcium oneyda urement (mass/volume)Ordered By: Jovani Oliva on 11-10-2024 Calcium [Mass/Vol] 9.6 mg/dL 8.5-10.1 [facility] Serum or plasma creatinine m easurement (mass/volume)Ordered By: Jovani Oliva on 11-10-2024 Creatinine [Mass/Vol] 0.78 mg/dL 0.55-1.02 [facility] Comment on above: The validity of the calculated GFR & GFRAA in patients over 70 years has not been determined. Clinical correlation is essential. Serum or plasma urea nitroge n measurement (mass/volume)Ordered By: Jovani Oliva on 11-10-2024 Urea nitrogen [Mass/Vol] 11 mg/dL 7-18 [facility] Sodium levelOrdered By: Jovani Oliva on 11-10-2024 Sodium [Moles/Vol] 136 mmol/L 136-145 [facility] TSH QnOrdered By: Jovani Oliva o n 11-10-2024 Thyroid Stimulating Hormone (TSH) 0.991 uIU/mL 0.358-3.740 [facility] Thyroid Stim Hormone (TSH)on 11-10-2024 TSH 0.991 uIU/mL Normal 0.358-3.740 [facility] Comment on above: Performed By: #### L 506.1000, L500.4050, L400.0001, L100.0100, L501.9985, M100.2200, L500.4100, L501.9520 #### [facility] [address] [place], [place], [id number] Total proteinOrdered By: Jovani Oliva on 11-10-2024 Protein [Mass/Vol] 7.9 g/dL 6.4-8.2 [facility] Urinalysis, Completeon 11-10 BACTERIA RARE Normal None Seen [facility] Comment on above: Order Comment: Urine , Random Performed By: #### L 506.1000, L500.4050, L400.0001, L100.0100, L501.9985, M100.2200, L500.4100, L501.9520 #### [facility] [address] [place], [address] EPI,SQUAMOUS 0-5 SEEN Normal 5-10 [facility] Comment on above: Order Comment: Urine , Random Performed By: #### L 506.1000, L500.4050, L400.0001, L100.0100, L501.9985, M100.2200, L500.4100, L501.9520 #### [facility] [address] [place], [address] RBC 0-5 SEEN Normal 0-5 [facility] Comment on above: Order Comment: Urine , Random Performed By: #### L 506.1000, L500.4050, L400.0001, L100.0100, L501.9985, M100.2200, L500.4100, L501.9520 #### [facility] [address] [place], [address] WBC 5-10 SEEN Normal 0-5 [facility] Comment on above: Order Comment: Urine , Random Performed By: #### L 506.1000, L500.4050, L400.0001, L100.0100, L501.9985, M100.2200, L500.4100, L501.9520 #### [facility] [address] [place], [address] Mucus Ql (Urine sed) 0 SEEN Normal [facility] Comment on above: Order Comment: Urine , Random Performed By: #### L 506.1000, L500.4050, L400.0001, L100.0100, L501.9985, M100.2200, L500.4100, L501.9520 #### [facility] [address] [place], [address] Urine blood detectionOrdered By: Jovani Oliva on 11-10-2024 Urine Occult Blood 150 /ul High Negative [facility] Urine clarityOrdered By: Jovani Oliva on 11-10-2024 Clarity (U) Clear Clear [facility] Urine color determinationOrd ered By: Jovani Oliva on 11-10-2024 Color (U) Yellow Yellow [facility] Urine cultureOrdered By: Jovani Oliva on 11-10-2024 Bacteria identified Cx Nom (U) Negative Abnormal [facility] Urine leukocyte esterase det ection by dipstickOrdered By: Jovani Oliva on 11-10-2024 Leukocyte esterase Test strip Ql (U) 25 /ul High Negative [facility] Urine pHOrdered By: Jovani Oliva on 11-10-2024 pH (U) 5.0 [pH] 5.0 - 8.0 [facility] Urine specific gravity measu rementOrdered By: Jovani Oliva on 11-10-2024 Specific gravity (U) [Rel density] 1.025 1.002-1.030 [facility] Urobilinogen Ql (U)Ordered B y: Jovani Oliva on 11-10-2024 Urine Urobilinogen Normal mg/dl Normal [facility] White blood cell (WBC) count Ordered By: Jovani Oliva on 11-10-2024 WBC (Bld) [#/Vol] 7.1 10*3/uL 4.4-11.0 [facility] White blood cell countOrdere d By: Jovani Oliva on 11-10-2024 Urine WBC 5-10 SEEN /hpf 0-5 [facility] Urine Cultureon 11-08-2024 URC Below infection leve l. Mixed Gram Positive Organisms [place] Count <1000 [facility] Mixed contaminants. Submit a new specimen if indicated. Normal [facility] Comment on above: Performed By: #### L 506.1000, L500.4050, L400.0001, L100.0100, L501.9985, M100.2200, L500.4100, L501.9520 #### [facility] [address], [address] Absolute neutrophil countOrd ered By: Jovani Oliva on 11-06-2024 Neutrophils (Bld) [#/Vol] 5.0 10*3/uL 2.0-7.7 [facility] Albumin to globulin ratioOrd ered By: Jovani Oliva on 11-06-2024 Albumin/Globulin [Mass ratio] 0.9 {ratio} 0.9-2.4 [facility] Basophil percentageOrdered B y: Jovani Oliva on 11-06-2024 Basophils/100 WBC (Bld) 0.4 % 0-1 [facility] Bilirubin Test strip Ql (U)O rdered By: Jovani Oliva on 11-06-2024 Bilirubin Ql (U) Negative Negative [facility] Bilirubin, totalOrdered By: Jovani Oliva on 11-06-2024 Bilirubin [Mass/Vol] 0.50 mg/dL 0.20-1.00 [facility] Comment on above: For patients on eltr ombopag therapy, use of Dimension [place] TBIL is not recommended. Blood cultureOrdered By: Jovani Oliva on 11-06-2024 Bacteria identified Cx Nom (Bld) No growth in 5 days. [facility] Blood urea nitrogen (BUN)/cr eatinine ratioOrdered By: Jovani Oliva on 11-06-2024 Urea nitrogen/Creatinine [Mass ratio] 18.8 mg/mg 10-20 [facility] CBC W/Diff, Automatedon Absolute Lymph 1.80 X10 3/uL Normal 0.83-4.51 [facility] Comment on above: Performed By: #### L 506.1000, L500.4050, L400.0001, L100.0100, L501.9985, M100.2200, L500.4100, L501.9520 #### [facility] [address] [place], [address] Absolute Neut 5.0 X10 3/uL Normal 2.0-7.7 [facility] Comment on above: Performed By: #### L 506.1000, L500.4050, L400.0001, L100.0100, L501.9985, M100.2200, L500.4100, L501.9520 #### [facility] [address] [place], [address] ( Basophils/100 WBC (Bld) 0.4 % Normal 0-1 [facility] Comment on above: Performed By: #### L 506.1000, L500.4050, L400.0001, L100.0100, L501.9985, M100.2200, L500.4100, L501.9520 #### [facility] [address] [place], [address] Eosinophils/100 WBC (Bld) 2.0 % Normal 0-5 [facility] Comment on above: Performed By: #### L 506.1000, L500.4050, L400.0001, L100.0100, L501.9985, M100.2200, L500.4100, L501.9520 #### [facility] [address], [address] Erythrocyte distribution width (RBC) [Ratio] 13.0 % Normal 11.6-14.6 [facility] Comment on above: Performed By: #### L 506.1000, L500.4050, L400.0001, L100.0100, L501.9985, M100.2200, L500.4100, L501.9520 #### [facility] [address] [place], [address] Hematocrit (Bld) [Volume fraction] 43.6 % Normal 37-47 [facility] Comment on above: Performed By: #### L 506.1000, L500.4050, L400.0001, L100.0100, L501.9985, M100.2200, L500.4100, L501.9520 #### [facility] [address] [place], [address] Hemoglobin (Bld) [Mass/Vol] 14.2 g/dL Normal 12.0-15.0 [facility] Comment on above: Performed By: #### L 506.1000, L500.4050, L400.0001, L100.0100, L501.9985, M100.2200, L500.4100, L501.9520 #### [facility] [address] [place], [address] IG% 0.100 Normal 0.0-0.9 [facility] Comment on above: Result Comment: IG% - Immature Granulocytes (promyelocytes, myelocytes and metamyelocytes) > 1% indicates that a LEFT SHIFT is Present. Performed By: #### L 506.1000, L500.4050, L400.0001, L100.0100, L501.9985, M100.2200, L500.4100, L501.9520 #### [facility] [address] [place], [address] Lymphocytes/100 WBC (Bld) 23.6 % Normal 19-41 [facility] Comment on above: Performed By: #### L 506.1000, L500.4050, L400.0001, L100.0100, L501.9985, M100.2200, L500.4100, L501.9520 #### [facility] [address] [place], [address] MCH (RBC) [Entitic mass] 29.5 pg Normal 27.0-32.0 [facility] Comment on above: Performed By: #### L 506.1000, L500.4050, L400.0001, L100.0100, L501.9985, M100.2200, L500.4100, L501.9520 #### [facility] [address] [place], [address] MCHC (RBC) [Mass/Vol] 32.6 g/dL Normal 32-36 [facility] Comment on above: Performed By: #### L 506.1000, L500.4050, L400.0001, L100.0100, L501.9985, M100.2200, L500.4100, L501.9520 #### [facility] [address], [address] MCV (RBC) [Entitic vol] 90.6 fL Normal 81-99 [facility] Comment on above: Performed By: #### L 506.1000, L500.4050, L400.0001, L100.0100, L501.9985, M100.2200, L500.4100, L501.9520 #### [facility] [address] [place], [address] Monocytes/100 WBC (Bld) 8.9 % Normal 0-10 [facility] Comment on above: Performed By: #### L 506.1000, L500.4050, L400.0001, L100.0100, L501.9985, M100.2200, L500.4100, L501.9520 #### [facility] [address] [facility] [place], [address] Neutrophils/100 WBC (Bld) 65.0 % Normal 47-70 [facility] Comment on above: Performed By: #### L 506.1000, L500.4050, L400.0001, L100.0100, L501.9985, M100.2200, L500.4100, L501.9520 #### [facility] [address] [facility] [place], [address] Nucleated RBC (Bld) [#/Vol] 0 10*3/uL Normal 0-5 [facility] Comment on above: Performed By: #### L 506.1000, L500.4050, L400.0001, L100.0100, L501.9985, M100.2200, L500.4100, L501.9520 #### [facility] [address] [place], [address] Platelet mean volume (Bld) [Entitic vol] 8.5 fL Normal 6.2-12.0 [facility] Comment on above: Performed By: #### L 506.1000, L500.4050, L400.0001, L100.0100, L501.9985, M100.2200, L500.4100, L501.9520 #### [facility] [address] [place], [address] Platelets (Bld) [#/Vol] 396 10*3/uL Normal 150-450 [facility] Comment on above: Performed By: #### L 506.1000, L500.4050, L400.0001, L100.0100, L501.9985, M100.2200, L500.4100, L501.9520 #### [facility] [address] [place], [address] RBC (Bld) [#/Vol] 4.81 10*6/uL Normal 4.2-5.[address] [facility] Comment on above: Performed By: #### L 506.1000, L500.4050, L400.0001, L100.0100, L501.9985, M100.2200, L500.4100, L501.9520 #### [facility] [address] [place], [address] RDW SD 43.2 fl Normal 35.1-43.9 [facility] Comment on above: Performed By: #### L 506.1000, L500.4050, L400.0001, L100.0100, L501.9985, M100.2200, L500.4100, L501.9520 #### [facility] [address] [place], [address] WBC (Bld) [#/Vol] 7.6 10*3/uL Normal 4.4-11.0 [facility] Comment on above: Performed By: #### L 506.1000, L500.4050, L400.0001, L100.0100, L501.9985, M100.2200, L500.4100, L501.9520 #### [facility] [address] [place], [address] Carbon dioxide measurementOr dered By: Jovani Oliva on 11-06-2024 CO2 [Moles/Vol] 31.0 mmol/L 21.0-32.0 [facility] Chloride measurementOrdered By: Jovani Oliva on 11-06-2024 Chloride [Moles/Vol] 103 mmol/L 98-107 [facility] Comprehensive Metabolic Prof ilon 11-06-2024 Albumin [Mass/Vol] 3.7 g/dL Normal 3.2-5.0 [facility] Comment on above: Performed By: #### L 506.1000, L500.4050, L400.0001, L100.0100, L501.9985, M100.2200, L500.4100, L501.9520 #### [facility] [address] [place], [address] Albumin/Globulin [Mass ratio] 0.9 {ratio} Normal 0.9-2.4 [facility] Comment on above: Performed By: #### L 506.1000, L500.4050, L400.0001, L100.0100, L501.9985, M100.2200, L500.4100, L501.9520 #### [facility] [address] [place], [address] ALK P 86 U/L Normal 45-117 [facility] Comment on above: Performed By: #### L 506.1000, L500.4050, L400.0001, L100.0100, L501.9985, M100.2200, L500.4100, L501.9520 #### [facility] [address] [place], [address] ALT [Catalytic activity/Vol] 36 U/L Normal 13-56 [facility] Comment on above: Performed By: #### L 506.1000, L500.4050, L400.0001, L100.0100, L501.9985, M100.2200, L500.4100, L501.9520 #### [facility] [address] [place], [address] AST [Catalytic activity/Vol] 21 U/L Normal 15-37 [facility] Comment on above: Performed By: #### L 506.1000, L500.4050, L400.0001, L100.0100, L501.9985, M100.2200, L500.4100, L501.9520 #### [facility] [address] [place], [address] Bilirubin [Mass/Vol] 0.50 mg/dL Normal 0.20-1.00 [facility] Comment on above: Result Comment: For patients on eltrombopag therapy, use of Dimension [place] TBIL is not recommended. Performed By: #### L 506.1000, L500.4050, L400.0001, L100.0100, L501.9985, M100.2200, L500.4100, L501.9520 #### [facility] [address] [place], [address] BUN/CRE 18.8 RATIO Normal 10-20 [facility] Comment on above: Performed By: #### L 506.1000, L500.4050, L400.0001, L100.0100, L501.9985, M100.2200, L500.4100, L501.9520 #### [facility] [address] [place], [address] CA,Total 9.4 mg/dL Normal 8.5-10.1 [facility] Comment on above: Performed By: #### L 506.1000, L500.4050, L400.0001, L100.0100, L501.9985, M100.2200, L500.4100, L501.9520 #### [facility] [address] [place], [address] Chloride [Moles/Vol] 103 mmol/L Normal 98-107 [facility] Comment on above: Performed By: #### L 506.1000, L500.4050, L400.0001, L100.0100, L501.9985, M100.2200, L500.4100, L501.9520 #### [facility] [address] [place], [address] CO2 [Moles/Vol] 31.0 mmol/L Normal 21.0-32.0 [facility] Comment on above: Performed By: #### L 506.1000, L500.4050, L400.0001, L100.0100, L501.9985, M100.2200, L500.4100, L501.9520 #### [facility] [address] [facility] [address] [place], [address] Creatinine [Mass/Vol] 1.01 mg/dL Normal 0.55-1.02 [facility] Comment on above: Result Comment: The validity of the calculated GFR GFRAA in patients over 70 years has not been determined. Clinical correlation is essential. Performed By: #### L 506.1000, L500.4050, L400.0001, L100.0100, L501.9985, M100.2200, L500.4100, L501.9520 #### [facility] [address] [place], [address] EST GFR - AA 68 mL/min Normal >60 [facility] Comment on above: Result Comment: Afri can [place] GFR Calc Performed By: #### L 506.1000, L500.4050, L400.0001, L100.0100, L501.9985, M100.2200, L500.4100, L501.9520 #### [facility] [address] [place], [address] GAP 4 Low 5-15 [facility] Comment on above: Performed By: #### L 506.1000, L500.4050, L400.0001, L100.0100, L501.9985, M100.2200, L500.4100, L501.9520 #### [facility] [address], [address] GFR/1.73 sq M.predicted among non-blacks MDRD (S/P/Bld) [Vol rate/Area] 56 mL/min/{1.73_m2} Low >60 [facility] Comment on above: Result Comment: Non- GFR Calc Performed By: #### L 506.1000, L500.4050, L400.0001, L100.0100, L501.9985, M100.2200, L500.4100, L501.9520 #### [facility] [address] [place], [address] Globulin (S) [Mass/Vol] 3.9 g/dL Normal 2.2-4.2 [facility] Comment on above: Performed By: #### L 506.1000, L500.4050, L400.0001, L100.0100, L501.9985, M100.2200, L500.4100, L501.9520 #### [facility] [address] [place], [address] Glucose [Mass/Vol] 98 mg/dL Normal 74-106 [facility] Comment on above: Performed By: #### L 506.1000, L500.4050, L400.0001, L100.0100, L501.9985, M100.2200, L500.4100, L501.9520 #### [facility] [address] [place], [address] Potassium [Moles/Vol] 3.6 mmol/L Normal 3.5-5.1 [facility] Comment on above: Performed By: #### L 506.1000, L500.4050, L400.0001, L100.0100, L501.9985, M100.2200, L500.4100, L501.9520 #### [facility] [address] [place], [address] Sodium [Moles/Vol] 138 mmol/L Normal 136-145 [facility] Comment on above: Performed By: #### L 506.1000, L500.4050, L400.0001, L100.0100, L501.9985, M100.2200, L500.4100, L501.9520 #### [facility] [address] [place], [address] T PROT 7.6 g/dL Normal 6.4-8.2 [facility] Comment on above: Performed By: #### L 506.1000, L500.4050, L400.0001, L100.0100, L501.9985, M100.2200, L500.4100, L501.9520 #### [facility] [address] [place], [address] Urea nitrogen [Mass/Vol] 19 mg/dL High 7-18 [facility] Comment on above: Performed By: #### L 506.1000, L500.4050, L400.0001, L100.0100, L501.9985, M100.2200, L500.4100, L501.9520 #### [facility] [address] [place], [address] Eosinophil percentageOrdered By: Jovani Oliva on 11-06-2024 Eosinophils/100 WBC (Bld) 2.0 % 0-5 [facility] Epithelial cells.squamous LM Ql (Urine sed)Ordered By: Jovani Oliva on 11-06-2024 Epithelial cells.squamous LM.HPF (Urine sed) [#/Area] 0 /[HPF] 5-10 [facility] Erythrocyte distribution wid th ratioOrdered By: Jovani Oliva on 11-06-2024 Erythrocyte distribution width (RBC) [Ratio] 13.0 % 11.6-14.6 [facility] Erythrocyte distribution wid th standard deviationOrdered By: Jovani Oliva on 11-06-2024 Erythrocyte distribution width (RBC) [Entitic vol] 43.2 fL 35.1-43.9 [facility] Estimated glomerular filtrat ion rate (GFR) AmericanOrdered By: Jovani Oliva on 11-06-2024 Estimated GFR (MDRD) Amer 68 mL/min >60 [facility] Comment on above: GFR Calc Glomerular filtration rate ( GFR) estimationOrdered By: Jovani Oliva on 11-06-2024 Estimated GFR (MDRD) Non-Af Amer 56 mL/min Low >60 [facility] Comment on above: Non- GFR Calc Glucose Ql (U)Ordered By: Jayy Oliva on 11-06-2024 Urine Glucose (UA) Normal mg/dl Normal [facility] Glucose measurementOrdered B y: Jovani Oliva on 11-06-2024 Glucose [Mass/Vol] 98 mg/dL 74-106 [facility] Hematocrit Auto (Bld) [Volum e fraction]Ordered By: Jovani Oliva on 11-06-2024 Hematocrit (Bld) [Volume fraction] 43.6 % 37-47 [facility] Hemoglobin measurementOrdere d By: Jovani Oliva on 11-06-2024 Hemoglobin (Bld) [Mass/Vol] 14.2 g/dL 12.0-15.0 [facility] Immature granulocytes/100 WB C Auto (Bld)Ordered By: Jovani Oliva on 11-06-2024 Immature granulocytes/100 WBC (Bld) 0.100 % 0.0-0.9 [facility] Comment on above: IG% - Immature Granu locytes (promyelocytes, myelocytes and metamyelocytes) > 1% indicates that a LEFT SHIFT is Present. Influenza virus A and B and SARS-CoV-2 (COVID-19) and Respiratory syncytial virus RNAOrdered By: Jovani Oliva on 11-06-2024 SARS-CoV-2 (COVID-19) RNA PA+probe Ql (Unsp spec) [facility] Ketones Test strip Ql (U)Ord ered By: Jovani Oliva on 11-06-2024 Ketones Ql (U) Negative Negative [facility] - Chemistry and C hemistry - challengeOrdered By: Jovani Oliva on 11-06-2024 AST [Catalytic activity/Vol] 21 U/L 15-37 [facility] Lymphocytes Auto (Unsp spec) [#/Vol]Ordered By: Jovani Oliva on 11-06-2024 Lymphocytes (Bld) [#/Vol] 1.80 10*3/uL 0.83-4.51 [facility] Lymphocytes/100 WBC Auto (Un sp spec)Ordered By: Jovani Oliva on 11-06-2024 Lymphocytes/100 WBC (Bld) 23.6 % 19-41 [facility] M100.678on 11-06-2024 M100.678 Pending SARS-CoV-2 (COVID 19) Negative INFLUENZA A Negative INFLUENZA B Negative RSV PCR Negative Normal [facility] Comment on above: Performed By: #### L 506.1000, L500.4050, L400.0001, L100.0100, L501.9985, M100.2200, L500.4100, L501.9520 #### [facility] [address] [facility] [place], [place], [id number] MCV (mean corpuscular volume ) determinationOrdered By: Jovani Oliva on 11-06-2024 MCV (RBC) [Entitic vol] 90.6 fL 81-99 [facility] Mean corpuscular hemoglobin (MCH) determinationOrdered By: Jovani Oliva on 11-06-2024 MCH (RBC) [Entitic mass] 29.5 pg 27.0-32.0 [facility] Mean corpuscular hemoglobin concentration (MCHC) determinationOrdered By: Jovani Oliva on 11-06-2024 MCHC (RBC) [Mass/Vol] 32.6 g/dL 32-36 [facility] Mean platelet volume determi nationOrdered By: Jovani Oliva on 11-06-2024 Platelet mean volume (Bld) [Entitic vol] 8.5 fL 6.2-12.0 [facility] Microscopic analysis of urin e for red blood cells (RBC)Ordered By: Jovani Oliva on 11-06-2024 Urine RBC 0-5 SEEN /hpf 0-5 [facility] Monocyte percentageOrdered B y: Jovani Oliva on 11-06-2024 Monocytes/100 WBC (Bld) 8.9 % 0-10 [facility] Mucus LM Ql (Urine sed)Order ed By: Jovani Oliva on 11-06-2024 Mucus Ql (Urine sed) 0 SEEN /hpf [facility] Neutrophil percentageOrdered By: Jovani Oliva on 11-06-2024 Neutrophils/100 WBC (Bld) 65.0 % 47-70 [facility] Nitrite Test strip Ql (U)Ord ered By: Jovani Oliva on 11-06-2024 Nitrite Ql (U) Negative Negative [facility] Nucleated red blood cell per centageOrdered By: Jovani Oliva on 11-06-2024 Nucleated RBC/100 WBC (Bld) [Ratio] 0 % 0-5 [facility] Platelet countOrdered By: Jayy Oliva on 11-06-2024 Platelets (Bld) [#/Vol] 396 10*3/uL 150-450 [facility] Potassium measurementOrdered By: Jovani Oliva on 11-06-2024 Potassium [Moles/Vol] 3.6 mmol/L 3.5-5.1 [facility] Protein Test strip Ql (U)Ord ered By: Jovani Oliva on 11-06-2024 Protein Ql (U) 15 mg/dl High Negative [facility] RBC Auto (Bld) [#/Vol]Ordere d By: Jovani Oliva on 11-06-2024 RBC (Bld) [#/Vol] 4.81 10*6/uL 4.2-5.[address] [facility] Serum anion gap measurementO rdered By: Jovani Oliva on 11-06-2024 Anion gap [Moles/Vol] 4 mmol/L Low 5-15 [facility] Serum globulin measurementOr dered By: Jovani Oliva on 11-06-2024 Globulin (S) [Mass/Vol] 3.9 g/dL 2.2-4.2 W [facility] Serum or plasma alanine carlos otransferase (ALT) measurementOrdered By: Jovani Oliva on 11-06-2024 ALT [Catalytic activity/Vol] 36 U/L 13-56 [facility] Serum or plasma albumin oneyda urement (mass/volume)Ordered By: Jovani Oliva on 11-06-2024 Albumin [Mass/Vol] 3.7 g/dL 3.2-5.0 [facility] Serum or plasma alkaline jumana sphatase measurementOrdered By: Jovani Oliva on 11-06-2024 ALP [Catalytic activity/Vol] 86 U/L 45-117 [facility] Serum or plasma calcium oneyda urement (mass/volume)Ordered By: Jovani Oliva on 11-06-2024 Calcium [Mass/Vol] 9.4 mg/dL 8.5-10.1 [facility] Serum or plasma creatinine m easurement (mass/volume)Ordered By: Jovani Pj on 11-06-2024 Creatinine [Mass/Vol] 1.01 mg/dL 0.55-1.02 [facility] Comment on above: The validity of the calculated GFR & GFRAA in patients over 70 years has not been determined. Clinical correlation is essential. Serum or plasma urea nitroge n measurement (mass/volume)Ordered By: Jovani Oliva on 11-06-2024 Urea nitrogen [Mass/Vol] 19 mg/dL High 7-18 [facility] Sodium levelOrdered By: Jovani Oliva 11-06-2024 Sodium [Moles/Vol] 138 mmol/L 136-145 [facility] Total proteinOrdered By: Jovani Oliva on 11-06-2024 Protein [Mass/Vol] 7.6 g/dL 6.4-8.2 [facility] Urinalysis, Completeon 11-06 EPI,SQUAMOUS 0-5 SEEN Normal 5-10 [facility] Comment on above: Order Comment: Urine , Random Performed By: #### L 506.1000, L500.4050, L400.0001, L100.0100, L501.9985, M100.2200, L500.4100, L501.9520 #### [facility] [address] [place], [address] RBC 0-5 SEEN Normal 0-5 [facility] Comment on above: Order Comment: Urine , Random Performed By: #### L 506.1000, L500.4050, L400.0001, L100.0100, L501.9985, M100.2200, L500.4100, L501.9520 #### [facility] [address] [place], [address] WBC 0-5 SEEN Normal 0-5 [facility] Comment on above: Order Comment: Urine , Random Performed By: #### L 506.1000, L500.4050, L400.0001, L100.0100, L501.9985, M100.2200, L500.4100, L501.9520 #### [facility] [address] [place], [place], [id number] BACTERIA 0 SEEN Normal None Seen [facility] Comment on above: Order Comment: Urine , Random Performed By: #### L 506.1000, L500.4050, L400.0001, L100.0100, L501.9985, M100.2200, L500.4100, L501.9520 #### [facility] [address] [place], [place], [id number] Mucus Ql (Urine sed) 0 SEEN Normal [facility] Comment on above: Order Comment: Urine , Random Performed By: #### L 506.1000, L500.4050, L400.0001, L100.0100, L501.9985, M100.2200, L500.4100, L501.9520 #### [facility] [address] [place], [place], [id number] Urine blood detectionOrdered By: Jovani Oliva on 11-06-2024 Urine Occult Blood 10 /ul High Negative [facility] Urine clarityOrdered By: Jovani Oliva on 11-06-2024 Clarity (U) Clear Clear [facility] Urine color determinationOrd ered By: Jovani Oliva on 11-06-2024 Color (U) Yellow Yellow [facility] Urine cultureOrdered By: Jovani Oliva on 11-06-2024 Bacteria identified Cx Nom (U) Positive Abnormal [facility] Urine leukocyte esterase det ection by dipstickOrdered By: Jovani Oliva on 11-06-2024 Leukocyte esterase Test strip Ql (U) 25 /ul High Negative [facility] Urine pHOrdered By: Jovani Oliva on 11-06-2024 pH (U) 6.0 [pH] 5.0 - 8.0 [facility] Urine sediment bacteria coun t by microscopy (number/high power field)Ordered By: Jovani Oliva on 11-06-2024 Bacteria LM.HPF (Urine sed) [#/Area] 0 /[HPF] None Seen [facility] Urine specific gravity measu rementOrdered By: Jovani Oliva on 11-06-2024 Specific gravity (U) [Rel density] 1.020 1.002-1.030 [facility] Urobilinogen Ql (U)Ordered B y: Jovani Oliva on 11-06-2024 Urine Urobilinogen Normal mg/dl Normal [facility] White blood cell (WBC) count Ordered By: Jovani Oliva on 11-06-2024 WBC (Bld) [#/Vol] 7.6 10*3/uL 4.4-11.0 [facility] White blood cell countOrdere d By: Jovani Oliva on 11-06-2024 Urine WBC 0-5 SEEN /hpf 0-5 [facility] No Panel Informationon 10-31 Influenza Types A,B Rapid (Clinic) Negative [facility] POC SARS CoV-2 Antigen Negative [facility] Urgent Care Visit Reporton 1 01-01-2024 Urgent Care Visit Report [facility] [address] , [address] [place] [address] OFFICE VISIT Date of Service: 10/31/24 MR#: [id number] Acct: [id number] Name: KAVEH PORTILLO Rep #: [id number] : 1945 Provider: TOSIN blackman Age/Sex: 79/F Location: [facility] Status: Signed Intake Vital Signs 05/26/23 11:50 10/31/24 10:06 Height 5 ft 2 in 5 ft 2 in BP 152/80 H Blood Pressure Location Lt brachial Position Sitting Respiration 15 Pulse 92 Pulse Source NIBP Temp 98.2 F Temp Source Oral Pulse Oximetry (%) 97 Oxygen Delivery Method room air Intake Visit Reasons: COUGH, SNEEZING Chief Complaint: cough, sneeze, N/V Sales Consultant Required: No Is patient in pain?: No Allergies No Known Allergies Allergy (Verified 10/31/24 15:00) Medications ???Medication ???Instructions ???Recorded ???Confirmed ???Type omeprazole 40 mg capsule,delayed 40 mg PO DAILY 09/26/21 10/31/24 History release lisinopril 40 mg tablet 40 mg PO DAILY #90 tabs 01/18/22 10/31/24 Rx triamterene 75 1 tab PO DAILY #90 tabs 05/10/22 10/31/24 Rx mg-hydrochlorothiazide 50 mg tablet paroxetine HCl 30 mg tablet 30 mg PO QDAY 10/31/24 10/31/24 History Have you fallen in the past year?: No PFSH Medical History Hypertension Obesity (BMI 30.0-34.9) URI (upper respiratory infection) Health care maintenance Bilateral impacted cerumen Hyperlipidemia Urinary incontinence Cataracts, bilateral Surgical History H/O: hysterectomy Family History Other CVA (cerebral vascular accident) Colon cancer Diabetes Heart disease Social History Smoking Status: Never smoker alcohol intake: never substance use type: does not use HPI HPI Chief Complaint: cough, sneeze, N/V Details: KAVEH PORTILLO, is a 79 F who presents to the office today for evaluation of cough, sneezing, nausea, and vomiting x1. Patient reports she went into store on Sunday and states Sunday morning she woke with non productive cough and sneezing. Denies sore throat, fevers, SOB. She has taken OTC tylenol with some improvement. Hx includes HTN, hyperlipidemia, and bronchitis. Denies smoking history. POC COVID and flu A/B negative. ROS Const Constitutional: Positive for headache(s) ENT ENT: Positive for nasal congestion, post nasal drip and headache(s) Resp Respiratory: Positive for cough; No shortness of breath Neuro Neurology: Positive for headache(s) Exam Const General: cooperative, healthy appearing, comfortable and no acute distress Orientation: alert, awake and oriented x3 HENMT Head: normal to inspection Ears: hearing grossly normal bilaterally and TM's normal bilaterally Nose: nasal discharge clear bilaterally Face and sinus: normal facial exam Throat: posterior oropharynx normal Eyes General: appearance normal, both eyes and all related structures Neck Neck: normal visual inspection Lymphatic: no lymphadenopathy noted Chest Chest palpation inspection: normal inspection of the chest Resp Effort Inspection: normal respiratory effort, able to speak in complete sentences, symmetric chest movement, normal respiratory pattern, no audible wheezes and no cough Auscultation: Bilateral: Clear to Auscultation Cardio Rate: regular rate Rhythm: regular rhythm Heart Sounds: S1 normal and S2 normal Skin Rashes: no rashes Neuro General: patient alert, patient awake and patient oriented x3 Cognition: normal cognition Speech: speech normal Gait: normal gait Extrem General: normal to inspection Psych Appearance: grossly normal Mental Status: mental status grossly normal Mood: congruent mood Affect: normal affect Speech and Movement: speech and movement normal Attitude: cooperative Thought Process: normal Thought Content: normal Judgment: judgment good Results POC SARS AG POC SARS AG Negative Last Edit by Tiarra Qureshi on 10/31/24 15:09 POC FLU A B Office Flu A B Negative FLU A B Last Edit by Tiarra Qureshi on 10/31/24 15:10 Coding Level of Care Code Off vis,est,level 1 Diagnoses Acute bronchitis, unspecified organism J20.9 Bronchitis organism: unspecified organism Assessment and Plan Assessment and Plan (1) Acute bronchitis: Status: Acute Qualifiers: Bronchitis organism: unspecified organism Qualified Code(s): J20.9 - Acute bronchitis, unspecified Plan: POC COVID and FLU negative. Given 5 day history, will not recommend antibiotics at this time. Assure adequate hydration. Tylenol for pain/fever. Consider OTC cold preparations fo (more content not included)... Normal [facility] Urine Cultureon 08-16-2024 URC Mixed Gram Positive Organisms [place] Count 1000-10,000 MIXC Mixed contaminants. Submit a new specimen if indicated. Normal [facility] Comment on above: Performed By: #### L 506.1000, L500.4050, L400.0001, L100.0100, L501.9985, M100.2200, L500.4100, L501.9520 #### [facility] [address] [place], [address] CBC W/Diff, Automatedon 10-11 05-2023 Absolute Lymph 1.41 X10 3/uL Normal 0.83-4.51 [facility] Comment on above: Performed By: #### L 506.1000, L500.4050, L400.0001, L100.0100, L501.9985, M100.2200, L500.4100, L501.9520 #### [facility] [address] [place], [address] Absolute Neut 4.7 X10 3/uL Normal 2.0-7.7 [facility] Comment on above: Performed By: #### L 506.1000, L500.4050, L400.0001, L100.0100, L501.9985, M100.2200, L500.4100, L501.9520 #### [facility] [address] [place], [address] Basophils/100 WBC (Bld) 0.2 % Normal 0-1 [facility] Comment on above: Performed By: #### L 506.1000, L500.4050, L400.0001, L100.0100, L501.9985, M100.2200, L500.4100, L501.9520 #### [facility] [address] [place], [address] Eosinophils/100 WBC (Bld) 0.9 % Normal 0-5 [facility] Comment on above: Performed By: #### L 506.1000, L500.4050, L400.0001, L100.0100, L501.9985, M100.2200, L500.4100, L501.9520 #### [facility] [address] [place], [address] Erythrocyte distribution width (RBC) [Ratio] 12.8 % Normal 11.6-14.6 [facility] Comment on above: Performed By: #### L 506.1000, L500.4050, L400.0001, L100.0100, L501.9985, M100.2200, L500.4100, L501.9520 #### [facility] [address] [place], [address] Hematocrit (Bld) [Volume fraction] 43.7 % Normal 37-47 [facility] Comment on above: Performed By: #### L 506.1000, L500.4050, L400.0001, L100.0100, L501.9985, M100.2200, L500.4100, L501.9520 #### [facility] [address] [place], [address] Hemoglobin (Bld) [Mass/Vol] 14.4 g/dL Normal 12.0-15.0 [facility] Comment on above: Performed By: #### L 506.1000, L500.4050, L400.0001, L100.0100, L501.9985, M100.2200, L500.4100, L501.9520 #### [facility] [address] [facility] [place], [address] (811 IG% 0.300 Normal 0.0-0.9 [facility] Comment on above: Result Comment: IG% - Immature Granulocytes (promyelocytes, myelocytes and metamyelocytes) > 1% indicates that a LEFT SHIFT is Present. Performed By: #### L 506.1000, L500.4050, L400.0001, L100.0100, L501.9985, M100.2200, L500.4100, L501.9520 #### [facility] [address], [address] Lymphocytes/100 WBC (Bld) 21.4 % Normal 19-41 [facility] Comment on above: Performed By: #### L 506.1000, L500.4050, L400.0001, L100.0100, L501.9985, M100.2200, L500.4100, L501.9520 #### [facility] [address] [place], [address] MCH (RBC) [Entitic mass] 30.2 pg Normal 27.0-32.0 [facility] Comment on above: Performed By: #### L 506.1000, L500.4050, L400.0001, L100.0100, L501.9985, M100.2200, L500.4100, L501.9520 #### [facility] [address] [place], [address] MCHC (RBC) [Mass/Vol] 33.0 g/dL Normal 32-36 [facility] Comment on above: Performed By: #### L 506.1000, L500.4050, L400.0001, L100.0100, L501.9985, M100.2200, L500.4100, L501.9520 #### [facility] [address] [place], [address] MCV (RBC) [Entitic vol] 91.6 fL Normal 81-99 [facility] Comment on above: Performed By: #### L 506.1000, L500.4050, L400.0001, L100.0100, L501.9985, M100.2200, L500.4100, L501.9520 #### [facility] [address], [address] Monocytes/100 WBC (Bld) 5.9 % Normal 0-10 [facility] Comment on above: Performed By: #### L 506.1000, L500.4050, L400.0001, L100.0100, L501.9985, M100.2200, L500.4100, L501.9520 #### [facility] [address], [address] Neutrophils/100 WBC (Bld) 71.3 % High 47-70 [facility] Comment on above: Performed By: #### L 506.1000, L500.4050, L400.0001, L100.0100, L501.9985, M100.2200, L500.4100, L501.9520 #### [facility] [address] [place], [address] Nucleated RBC (Bld) [#/Vol] 0 10*3/uL Normal 0-5 [facility] Comment on above: Performed By: #### L 506.1000, L500.4050, L400.0001, L100.0100, L501.9985, M100.2200, L500.4100, L501.9520 #### [facility] [address] [place], [address] Platelet mean volume (Bld) [Entitic vol] 8.6 fL Normal 6.2-12.0 [facility] Comment on above: Performed By: #### L 506.1000, L500.4050, L400.0001, L100.0100, L501.9985, M100.2200, L500.4100, L501.9520 #### [facility] [address] [place], [address] Platelets (Bld) [#/Vol] 344 10*3/uL Normal 150-450 [facility] Comment on above: Performed By: #### L 506.1000, L500.4050, L400.0001, L100.0100, L501.9985, M100.2200, L500.4100, L501.9520 #### [facility] [address] [place], [address] RBC (Bld) [#/Vol] 4.77 10*6/uL Normal 4.2-5.[address] [facility] Comment on above: Performed By: #### L 506.1000, L500.4050, L400.0001, L100.0100, L501.9985, M100.2200, L500.4100, L501.9520 #### [facility] [address] [place], [address] RDW SD 43.2 fl Normal 35.1-43.9 [facility] Comment on above: Performed By: #### L 506.1000, L500.4050, L400.0001, L100.0100, L501.9985, M100.2200, L500.4100, L501.9520 #### [facility] [address] [place], [address] WBC (Bld) [#/Vol] 6.6 10*3/uL Normal 4.4-11.0 [facility] Comment on above: Performed By: #### L 506.1000, L500.4050, L400.0001, L100.0100, L501.9985, M100.2200, L500.4100, L501.9520 #### [facility] [address] [place], [address] Comprehensive Metabolic Prof [facility] 08-15-2024 Albumin [Mass/Vol] 3.5 g/dL Normal 3.2-5.0 [facility] Comment on above: Performed By: #### L 506.1000, L500.4050, L400.0001, L100.0100, L501.9985, M100.2200, L500.4100, L501.9520 #### [facility] [address] [place], [address] Albumin/Globulin [Mass ratio] 0.9 {ratio} Normal 0.9-2.4 [facility] Comment on above: Performed By: #### L 506.1000, L500.4050, L400.0001, L100.0100, L501.9985, M100.2200, L500.4100, L501.9520 #### [facility] [address], [address] ALK P 82 U/L Normal 45-117 [facility] Comment on above: Performed By: #### L 506.1000, L500.4050, L400.0001, L100.0100, L501.9985, M100.2200, L500.4100, L501.9520 #### [facility] [address] [place], [address] ALT [Catalytic activity/Vol] 24 U/L Normal 13-56 [facility] Comment on above: Performed By: #### L 506.1000, L500.4050, L400.0001, L100.0100, L501.9985, M100.2200, L500.4100, L501.9520 #### [facility] [address], [address] AST [Catalytic activity/Vol] 18 U/L Normal 15-37 [facility] Comment on above: Performed By: #### L 506.1000, L500.4050, L400.0001, L100.0100, L501.9985, M100.2200, L500.4100, L501.9520 #### [facility] [address] [place], [address] Bilirubin [Mass/Vol] 0.40 mg/dL Normal 0.20-1.00 [facility] Comment on above: Result Comment: For patients on eltrombopag therapy, use of Dimension [place] TBIL is not recommended. Performed By: #### L 506.1000, L500.4050, L400.0001, L100.0100, L501.9985, M100.2200, L500.4100, L501.9520 #### [facility] [address] [place], [address] BUN/CRE 15.6 RATIO Normal 10-20 [facility] Comment on above: Performed By: #### L 506.1000, L500.4050, L400.0001, L100.0100, L501.9985, M100.2200, L500.4100, L501.9520 #### [facility] [address] [place], [address] CA,Total 9.2 mg/dL Normal 8.5-10.1 [facility] Comment on above: Performed By: #### L 506.1000, L500.4050, L400.0001, L100.0100, L501.9985, M100.2200, L500.4100, L501.9520 #### [facility] [address] [place], [address] Chloride [Moles/Vol] 105 mmol/L Normal 98-107 [facility] Comment on above: Performed By: #### L 506.1000, L500.4050, L400.0001, L100.0100, L501.9985, M100.2200, L500.4100, L501.9520 #### [facility] [address] [place], [address] CO2 [Moles/Vol] 29.0 mmol/L Normal 21.0-32.0 [facility] Comment on above: Performed By: #### L 506.1000, L500.4050, L400.0001, L100.0100, L501.9985, M100.2200, L500.4100, L501.9520 #### [facility] [address], [address] Creatinine [Mass/Vol] 0.77 mg/dL Normal 0.55-1.02 [facility] Comment on above: Result Comment: The validity of the calculated GFR GFRAA in patients over 70 years has not been determined. Clinical correlation is essential. Performed By: #### L 506.1000, L500.4050, L400.0001, L100.0100, L501.9985, M100.2200, L500.4100, L501.9520 #### [facility] [address], [address] EST GFR - AA 93 mL/min Normal >60 [facility] Comment on above: Result Comment: Afri can [place] GFR Calc Performed By: #### L 506.1000, L500.4050, L400.0001, L100.0100, L501.9985, M100.2200, L500.4100, L501.9520 #### [facility] [address] [place], [address] GAP 6 Normal 5-15 [facility] Comment on above: Performed By: #### L 506.1000, L500.4050, L400.0001, L100.0100, L501.9985, M100.2200, L500.4100, L501.9520 #### [facility] [address] [place], [address] GFR/1.73 sq M.predicted among non-blacks MDRD (S/P/Bld) [Vol rate/Area] 77 mL/min/{1.73_m2} Normal >60 [facility] Comment on above: Result Comment: Non- GFR Calc Performed By: #### L 506.1000, L500.4050, L400.0001, L100.0100, L501.9985, M100.2200, L500.4100, L501.9520 #### [facility] [address] [place], [address] Globulin (S) [Mass/Vol] 3.9 g/dL Normal 2.2-4.2 [facility] Comment on above: Performed By: #### L 506.1000, L500.4050, L400.0001, L100.0100, L501.9985, M100.2200, L500.4100, L501.9520 #### [facility] [address], [address] Glucose [Mass/Vol] 120 mg/dL High 74-106 [facility] Comment on above: Result Comment: Fast ing Glucose result from 100 to 125 mg/dL suggests IMPAIRED HOMEOSTASIS per A.D.A. criteria. Performed By: #### L 506.1000, L500.4050, L400.0001, L100.0100, L501.9985, M100.2200, L500.4100, L501.9520 #### [facility] [address], [address] Potassium [Moles/Vol] 3.6 mmol/L Normal 3.5-5.1 [facility] Comment on above: Performed By: #### L 506.1000, L500.4050, L400.0001, L100.0100, L501.9985, M100.2200, L500.4100, L501.9520 #### [facility] [address], [address] Sodium [Moles/Vol] 140 mmol/L Normal 136-145 [facility] Comment on above: Performed By: #### L 506.1000, L500.4050, L400.0001, L100.0100, L501.9985, M100.2200, L500.4100, L501.9520 #### [facility] [address], [address] T PROT 7.4 g/dL Normal 6.4-8.2 [facility] Comment on above: Performed By: #### L 506.1000, L500.4050, L400.0001, L100.0100, L501.9985, M100.2200, L500.4100, L501.9520 #### [facility] [address], [address] Urea nitrogen [Mass/Vol] 12 mg/dL Normal 7-18 [facility] Comment on above: Performed By: #### L 506.1000, L500.4050, L400.0001, L100.0100, L501.9985, M100.2200, L500.4100, L501.9520 #### [facility] [address] [place], [address] Thyroid Stim Hormone (TSH)on 08-15-2024 TSH 1.260 uIU/mL Normal 0.358-3.740 [facility] Comment on above: Performed By: #### L 506.1000, L500.4050, L400.0001, L100.0100, L501.9985, M100.2200, L500.4100, L501.9520 #### [facility] [address] [place], [address] Urinalysis, Routine (Dipstic k)on 08-15-2024 BILIRUBIN URINE Negative Normal Negative [facility] Comment on above: Order Comment: Urine , Random Performed By: #### L 100.0100, L501.9520, M100.2200, L500.4050, L400.2010 #### [facility] [address] [place], [address] Clarity (U) Clear Normal Clear [facility] Comment on above: Order Comment: Urine , Random Performed By: #### L 100.0100, L501.9520, M100.2200, L500.4050, L400.2010 #### [facility] [address], [address] Color (U) Yellow Normal Yellow [facility] Comment on above: Order Comment: Urine , Random Performed By: #### L 100.0100, L501.9520, M100.2200, L500.4050, L400.2010 #### [facility] [address] [place], [address] GLUCOSE, UR Normal Normal Normal [facility] Comment on above: Order Comment: Urine , Random Performed By: #### L 100.0100, L501.9520, M100.2200, L500.4050, L400.2010 #### [facility] [address] [place], [address] KETONE UR 5 mg/dl Abnormal Negative [facility] Comment on above: Order Comment: Urine , Random Performed By: #### L 100.0100, L501.9520, M100.2200, L500.4050, L400.2010 #### [facility] [address] [place], [address] LEUK ESTERASE Negative Normal Negative [facility] Comment on above: Order Comment: Urine , Random Performed By: #### L 100.0100, L501.9520, M100.2200, L500.4050, L400.2010 #### [facility] [address] [place], [address] Nitrite Ql (U) Negative Normal Negative [facility] Comment on above: Order Comment: Urine , Random Performed By: #### L 100.0100, L501.9520, M100.2200, L500.4050, L400.2010 #### [facility] [address] [place], [address] OCCULT BLOOD-UR 50 /ul Abnormal Negative [facility] Comment on above: Order Comment: Urine , Random Performed By: #### L 100.0100, L501.9520, M100.2200, L500.4050, L400.2010 #### [facility] [address] [place], [address] pH UR 7.0 Normal 5.0 - 8.0 [facility] Comment on above: Order Comment: Urine , Random Performed By: #### L 100.0100, L501.9520, M100.2200, L500.4050, L400.2010 #### [facility] [address] [place], [address] PROT DIPSTX 30 mg/dl Abnormal Negative [facility] Comment on above: Order Comment: Urine , Random Performed By: #### L 100.0100, L501.9520, M100.2200, L500.4050, L400.2010 #### [facility] [address] [place], [address] SP.GR. DIPSTX 1.010 Normal 1.002-1.030 [facility] Comment on above: Order Comment: Urine , Random Performed By: #### L 100.0100, L501.9520, M100.2200, L500.4050, L400.2010 #### [facility] [address] [place], [address] UROBILI Normal Normal Normal [facility] Comment on above: Order Comment: Urine , Random Performed By: #### L 100.0100, L501.9520, M100.2200, L500.4050, L400.2010 #### [facility] [address] [place], [address] Hemoglobin A1con 07-02-2024 HbA1c (Bld) [Mass fraction] 6.0 % High 3.8-5.6 [facility] Comment on above: Order Comment: ADD O N BLOOD IN LAB *[id number] Result Comment: Norm al < 5.7 % Prediabetic 5.7 - 6.4 % Diabetic >or= 6.5 % Please note range changes. Performed By: #### L 506.1000, L500.4050, L400.0001, L100.0100, L501.9985, M100.2200, L500.4100, L501.9520 #### [facility] [address] [place], [address] Urine Cultureon 07-02-2024 [facility] Mixed Gram Positive Organisms [place] Count 11,000-25,000 MIXC Mixed contaminants. Submit a new specimen if indicated. Normal [facility] Comment on above: Performed By: #### L 506.1000, L500.4050, L400.0001, L100.0100, L501.9985, M100.2200, L500.4100, L501.9520 #### [facility] [address] [place], [place], [address] Abdomen Single Viewon 2023 Abdomen Single View [facility] [address] [place] [address] Abdomen Single View MR#: [id number] Acct: [id number] Name: KAVEH PORTILLO Rep #: [id number] : 1945 F 79 From: Antwan Segovia DO PCP: Dr. Jovani Oliva MD Status: REG CLI Study: Abdomen Single View Date of Exam: 07/01/24 Exam# [id number] Ordering Dr: Jovani Oliva MD [id number] STUDY: X-RAY - ABDOMEN/PELVIS REASON FOR EXAM: Female, 79 years old. NAUSEA TECHNIQUE: On 2 views COMPARISON: None. FINDINGS: Normal visualized lung bases. There is an unremarkable bowel gas pattern. There is no demonstrated free abdominal air. The visualized liver, spleen and kidneys are grossly normal in size and morphology. Normal soft tissue structures. Degenerative vertebral changes. Degenerative changes at the hips with joint space narrowing, right more than left. RAD/Abdomen Single View IMPRESSION: No acute pathology of the abdomen and pelvis. Electronically Signed: Antwan Segovia DO at 21:44 EDT , CC: Dr. Jovani Oliva MD Practice Physician: Signed Normal [facility] CBC W/Diff, Automatedon 08- Absolute Lymph 1.85 X10 3/uL Normal 0.83-4.51 [facility] Comment on above: Performed By: #### L 506.1000, L500.4050, L400.0001, L100.0100, L501.9985, M100.2200, L500.4100, L501.9520 #### [facility] [address] [place], [address] Absolute Neut 5.5 X10 3/uL Normal 2.0-7.7 [facility] Comment on above: Performed By: #### L 506.1000, L500.4050, L400.0001, L100.0100, L501.9985, M100.2200, L500.4100, L501.9520 #### [facility] [address] [place], [address] Basophils/100 WBC (Bld) 0.3 % Normal 0-1 [facility] Comment on above: Performed By: #### L 506.1000, L500.4050, L400.0001, L100.0100, L501.9985, M100.2200, L500.4100, L501.9520 #### [facility] [address] [place], [address] Eosinophils/100 WBC (Bld) 1.1 % Normal 0-5 [facility] Comment on above: Performed By: #### L 506.1000, L500.4050, L400.0001, L100.0100, L501.9985, M100.2200, L500.4100, L501.9520 #### [facility] [address] [place], [address] Erythrocyte distribution width (RBC) [Ratio] 12.6 % Normal 11.6-14.6 [facility] Comment on above: Performed By: #### L 506.1000, L500.4050, L400.0001, L100.0100, L501.9985, M100.2200, L500.4100, L501.9520 #### [facility] [address] [place], [address] Hematocrit (Bld) [Volume fraction] 42.5 % Normal 37-47 [facility] Comment on above: Performed By: #### L 506.1000, L500.4050, L400.0001, L100.0100, L501.9985, M100.2200, L500.4100, L501.9520 #### [facility] [address] [place], [address] Hemoglobin (Bld) [Mass/Vol] 13.9 g/dL Normal 12.0-15.0 [facility] Comment on above: Performed By: #### L 506.1000, L500.4050, L400.0001, L100.0100, L501.9985, M100.2200, L500.4100, L501.9520 #### [facility] [address] [place], [address] IG% 0.300 Normal 0.0-0.9 [facility] Comment on above: Result Comment: IG% - Immature Granulocytes (promyelocytes, myelocytes and metamyelocytes) > 1% indicates that a LEFT SHIFT is Present. Performed By: #### L 506.1000, L500.4050, L400.0001, L100.0100, L501.9985, M100.2200, L500.4100, L501.9520 #### [facility] [address] [place], [address] Lymphocytes/100 WBC (Bld) 23.4 % Normal 19-41 [facility] Comment on above: Performed By: #### L 506.1000, L500.4050, L400.0001, L100.0100, L501.9985, M100.2200, L500.4100, L501.9520 #### [facility] [address] [place], [address] MCH (RBC) [Entitic mass] 29.4 pg Normal 27.0-32.0 [facility] Comment on above: Performed By: #### L 506.1000, L500.4050, L400.0001, L100.0100, L501.9985, M100.2200, L500.4100, L501.9520 #### [facility] [address] [place], [address] MCHC (RBC) [Mass/Vol] 32.7 g/dL Normal 32-36 [facility] Comment on above: Performed By: #### L 506.1000, L500.4050, L400.0001, L100.0100, L501.9985, M100.2200, L500.4100, L501.9520 #### [facility] [address] [facility] [place], [address] MCV (RBC) [Entitic vol] 89.9 fL Normal 81-99 [facility] Comment on above: Performed By: #### L 506.1000, L500.4050, L400.0001, L100.0100, L501.9985, M100.2200, L500.4100, L501.9520 #### [facility] [address] [place], [address] Monocytes/100 WBC (Bld) 5.4 % Normal 0-10 [facility] Comment on above: Performed By: #### L 506.1000, L500.4050, L400.0001, L100.0100, L501.9985, M100.2200, L500.4100, L501.9520 #### [facility] [address] [place], [address] Neutrophils/100 WBC (Bld) 69.5 % Normal 47-70 [facility] Comment on above: Performed By: #### L 506.1000, L500.4050, L400.0001, L100.0100, L501.9985, M100.2200, L500.4100, L501.9520 #### [facility] [address] [place], [address] Nucleated RBC (Bld) [#/Vol] 0 10*3/uL Normal 0-5 [facility] Comment on above: Performed By: #### L 506.1000, L500.4050, L400.0001, L100.0100, L501.9985, M100.2200, L500.4100, L501.9520 #### [facility] [address] [place], [address] Platelet mean volume (Bld) [Entitic vol] 8.2 fL Normal 6.2-12.0 [facility] Comment on above: Performed By: #### L 506.1000, L500.4050, L400.0001, L100.0100, L501.9985, M100.2200, L500.4100, L501.9520 #### [facility] [address] [place], [address] Platelets (Bld) [#/Vol] 323 10*3/uL Normal 150-450 [facility] Comment on above: Performed By: #### L 506.1000, L500.4050, L400.0001, L100.0100, L501.9985, M100.2200, L500.4100, L501.9520 #### [facility] [address] [place], [address] RBC (Bld) [#/Vol] 4.73 10*6/uL Normal 4.2-5.[address] [facility] Comment on above: Performed By: #### L 506.1000, L500.4050, L400.0001, L100.0100, L501.9985, M100.2200, L500.4100, L501.9520 #### [facility] [address] [place], [address] RDW SD 41.8 fl Normal 35.1-43.9 [facility] Comment on above: Performed By: #### L 506.1000, L500.4050, L400.0001, L100.0100, L501.9985, M100.2200, L500.4100, L501.9520 #### [facility] [address] [place], [address] WBC (Bld) [#/Vol] 7.9 10*3/uL Normal 4.4-11.0 [facility] Comment on above: Performed By: #### L 506.1000, L500.4050, L400.0001, L100.0100, L501.9985, M100.2200, L500.4100, L501.9520 #### [facility] [address] [place], [address] Comprehensive Metabolic Prof [facility] 07-01-2024 Albumin [Mass/Vol] 3.4 g/dL Normal 3.2-5.0 [facility] Comment on above: Performed By: #### L 506.1000, L500.4050, L400.0001, L100.0100, L501.9985, M100.2200, L500.4100, L501.9520 #### [facility] [address] [place], [address] Albumin/Globulin [Mass ratio] 0.8 {ratio} Low 0.9-2.4 [facility] Comment on above: Performed By: #### L 506.1000, L500.4050, L400.0001, L100.0100, L501.9985, M100.2200, L500.4100, L501.9520 #### [facility] [address] [place], [address] ALK P 87 U/L Normal 45-117 [facility] Comment on above: Performed By: #### L 506.1000, L500.4050, L400.0001, L100.0100, L501.9985, M100.2200, L500.4100, L501.9520 #### [facility] [address], [address] ALT [Catalytic activity/Vol] 27 U/L Normal 13-56 [facility] Comment on above: Performed By: #### L 506.1000, L500.4050, L400.0001, L100.0100, L501.9985, M100.2200, L500.4100, L501.9520 #### [facility] [address] [place], [address] AST [Catalytic activity/Vol] 21 U/L Normal 15-37 [facility] Comment on above: Performed By: #### L 506.1000, L500.4050, L400.0001, L100.0100, L501.9985, M100.2200, L500.4100, L501.9520 #### [facility] [address] [place], [address] Bilirubin [Mass/Vol] 0.30 mg/dL Normal 0.20-1.00 [facility] Comment on above: Result Comment: For patients on eltrombopag therapy, use of Dimension [place] TBIL is not recommended. Performed By: #### L 506.1000, L500.4050, L400.0001, L100.0100, L501.9985, M100.2200, L500.4100, L501.9520 #### [facility] [address] [place], [address] BUN/CRE 19.7 RATIO Normal 10-20 [facility] Comment on above: Performed By: #### L 506.1000, L500.4050, L400.0001, L100.0100, L501.9985, M100.2200, L500.4100, L501.9520 #### [facility] [address] [place], [address] CA,Total 9.7 mg/dL Normal 8.5-10.1 [facility] Comment on above: Performed By: #### L 506.1000, L500.4050, L400.0001, L100.0100, L501.9985, M100.2200, L500.4100, L501.9520 #### [facility] [address] [place], [address] Chloride [Moles/Vol] 103 mmol/L Normal 98-107 [facility] Comment on above: Performed By: #### L 506.1000, L500.4050, L400.0001, L100.0100, L501.9985, M100.2200, L500.4100, L501.9520 #### [facility] [address] [place], [address] CO2 [Moles/Vol] 31.0 mmol/L Normal 21.0-32.0 [facility] Comment on above: Performed By: #### L 506.1000, L500.4050, L400.0001, L100.0100, L501.9985, M100.2200, L500.4100, L501.9520 #### [facility] [address] [place], [address] Creatinine [Mass/Vol] 0.91 mg/dL Normal 0.55-1.02 [facility] Comment on above: Result Comment: The validity of the calculated GFR GFRAA in patients over 70 years has not been determined. Clinical correlation is essential. Performed By: #### L 506.1000, L500.4050, L400.0001, L100.0100, L501.9985, M100.2200, L500.4100, L501.9520 #### [facility] [address] [place], [address] EST GFR - AA 76 mL/min Normal >60 [facility] Comment on above: Result Comment: Afri can [place] GFR Calc Performed By: #### L 506.1000, L500.4050, L400.0001, L100.0100, L501.9985, M100.2200, L500.4100, L501.9520 #### [facility] [address] [place], [address] GAP 5 Normal 5-15 [facility] Comment on above: Performed By: #### L 506.1000, L500.4050, L400.0001, L100.0100, L501.9985, M100.2200, L500.4100, L501.9520 #### [facility] [address] [place], [address] GFR/1.73 sq M.predicted among non-blacks MDRD (S/P/Bld) [Vol rate/Area] 63 mL/min/{1.73_m2} Normal >60 [facility] Comment on above: Result Comment: Non- GFR Calc Performed By: #### L 506.1000, L500.4050, L400.0001, L100.0100, L501.9985, M100.2200, L500.4100, L501.9520 #### [facility] [address] [place], [address] Globulin (S) [Mass/Vol] 4.0 g/dL Normal 2.2-4.2 [facility] Comment on above: Performed By: #### L 506.1000, L500.4050, L400.0001, L100.0100, L501.9985, M100.2200, L500.4100, L501.9520 #### [facility] [address], [address] Glucose [Mass/Vol] 148 mg/dL High 74-106 [facility] Comment on above: Result Comment: Fast ing Glucose result greater than or equal to 126 mg/dL suggests DIABETES MELLITUS per A.D.A. criteria. Performed By: #### L 506.1000, L500.4050, L400.0001, L100.0100, L501.9985, M100.2200, L500.4100, L501.9520 #### [facility] [address] [place], [address] Potassium [Moles/Vol] 3.8 mmol/L Normal 3.5-5.1 [facility] Comment on above: Performed By: #### L 506.1000, L500.4050, L400.0001, L100.0100, L501.9985, M100.2200, L500.4100, L501.9520 #### [facility] [address], [address] Sodium [Moles/Vol] 139 mmol/L Normal 136-145 [facility] Comment on above: Performed By: #### L 506.1000, L500.4050, L400.0001, L100.0100, L501.9985, M100.2200, L500.4100, L501.9520 #### [facility] [address], [address] T PROT 7.4 g/dL Normal 6.4-8.2 [facility] Comment on above: Performed By: #### L 506.1000, L500.4050, L400.0001, L100.0100, L501.9985, M100.2200, L500.4100, L501.9520 #### [facility] [address], [address] Urea nitrogen [Mass/Vol] 18 mg/dL Normal 7-18 [facility] Comment on above: Performed By: #### L 506.1000, L500.4050, L400.0001, L100.0100, L501.9985, M100.2200, L500.4100, L501.9520 #### [facility] [address] [place], [address] Lipid Profileon 08-27-2024 Cholesterol [Mass/Vol] 263 mg/dL High 200 [facility] Comment on above: Result Comment: <200 mg/dL Desirable 200-240 mg/dL Borderline >240 mg/dL High Risk Performed By: #### L 506.1000, L500.4050, L400.0001, L100.0100, L501.9985, M100.2200, L500.4100, L501.9520 #### [facility] [address], [address] Cholesterol in HDL [Mass/Vol] 37 mg/dL Low [facility] Comment on above: Result Comment: The drugs N-Acetylcysteine and Metamizole may falsely depress this assay. Reference Range HDL <40 mg/dL Low HDL Cholesterol HDL >or= 60 mg/dL High HDL Cholesterol Performed By: #### L 506.1000, L500.4050, L400.0001, L100.0100, L501.9985, M100.2200, L500.4100, L501.9520 #### [facility] [address], [address] Cholesterol in LDL [Mass/Vol] 157 mg/dL High 0-130 [facility] Comment on above: Performed By: #### L 506.1000, L500.4050, L400.0001, L100.0100, L501.9985, M100.2200, L500.4100, L501.9520 #### [facility] [address], [address] Cholesterol in VLDL [Mass/Vol] 69 mg/dL High 5-40 [facility] Comment on above: Performed By: #### L 506.1000, L500.4050, L400.0001, L100.0100, L501.9985, M100.2200, L500.4100, L501.9520 #### [facility] [address] [place], [address] Triglyceride [Mass/Vol] 347 mg/dL High [facility] Comment on above: Result Comment: The drugs N-Acetylcysteine and Metamizole may falsely depress this assay. Serum Triglycerides Reference Interval Normal <150 mg/dL Borderline high 150 - 199 mg/dL High 200 - 499 mg/dL Very High > or = 500 mg/dL Performed By: #### L 506.1000, L500.4050, L400.0001, L100.0100, L501.9985, M100.2200, L500.4100, L501.9520 #### [facility] [address] [place], [address] Thyroid Stim Hormone (TSH)on 07-01-2024 TSH 0.658 uIU/mL Normal 0.358-3.740 [facility] Comment on above: Performed By: #### L 506.1000, L500.4050, L400.0001, L100.0100, L501.9985, M100.2200, L500.4100, L501.9520 #### [facility] [address], [address] Urinalysis, Completeon 07-01 EPI,SQUAMOUS 0-5 SEEN Normal 5-10 [facility] Comment on above: Order Comment: Urine , Random Performed By: #### L 506.1000, L500.4050, L400.0001, L100.0100, L501.9985, M100.2200, L500.4100, L501.9520 #### [facility] [address] [place], [address] BACTERIA 0 SEEN Normal None Seen [facility] Comment on above: Order Comment: Urine , Random Performed By: #### L 506.1000, L500.4050, L400.0001, L100.0100, L501.9985, M100.2200, L500.4100, L501.9520 #### [facility] [address], [address] Mucus Ql (Urine sed) 0 SEEN Normal [facility] Comment on above: Order Comment: Urine , Random Performed By: #### L 506.1000, L500.4050, L400.0001, L100.0100, L501.9985, M100.2200, L500.4100, L501.9520 #### [facility] [address] [place], [address] RBC 0 SEEN Normal 0-5 [facility] Comment on above: Order Comment: Urine , Random Performed By: #### L 506.1000, L500.4050, L400.0001, L100.0100, L501.9985, M100.2200, L500.4100, L501.9520 #### [facility] [address] [place], [address] WBC 0 SEEN Normal 0-5 [facility] Comment on above: Order Comment: Urine , Random Performed By: #### L 506.1000, L500.4050, L400.0001, L100.0100, L501.9985, M100.2200, L500.4100, L501.9520 #### [facility] [address] [place], [address] Vitamin D,25 Hydroxyon 07-01 Vitamin D 25-OH 36.7 ng/mL Normal [facility] Comment on above: Result Comment: Yancy min D 25(OH) Status Range Deficiency <20 ng/mL (50nmol/L) Insufficiency 20 - 30 ng/mL (50 - 75 nmol/L) Sufficiency 30 - 100 ng/mL (75 - 250 nmol/L) Toxicity >100 ng/mL (>250 nmol/L) Performed By: #### L 506.1000, L500.4050, L400.0001, L100.0100, L501.9985, M100.2200, L500.4100, L501.9520 #### [facility] [address] [place], [address] Laboratory - Microbiology an d Antimicrobial susceptibilityOrdered By: Jovani Oliva on 01-07-2024 SARS-CoV-2 (COVID-19) RNA PA+probe Ql (Unsp spec) [facility] Absolute lymphocyte countOrd ered By: Jovani Oliva on 12-31-2023 Lymphocytes Auto (Unsp spec) [#/Vol] 1.99 10*3/uL 0.83-4.51 [facility] Automated lymphocyte count a s percentage of total leukocytesOrdered By: Jovani Oliva on 12-31-2023 Lymphocytes/100 WBC Auto (Unsp spec) 28.3 % 19-41 [facility] Basophil percentageOrdered B y: Jovani Oliva on 12-31-2023 Basophils/100 WBC (Bld) 0.3 % 0-1 [facility] Bilirubin [Mass/Vol] 0.50 mg/dL 0.20-1.00 [facility] Comment on above: For patients on eltr ombopag therapy, use of Dimension [place] TBIL is not recommended. Chloride [Moles/Vol] 105 mmol/L 98-107 [facility] Cholesterol [Mass/Vol] 275 mg/dL <200 [facility] Comment on above: <200 mg/dL Desirable 200-240 mg/dL Borderline >240 mg/dL High Risk Eosinophils/100 WBC (Bld) 1.3 % 0-5 [facility] Glucose [Mass/Vol] 121 mg/dL 74-106 [facility] Comment on above: Fasting Glucose resu lt from 100 to 125 mg/dL suggests IMPAIRED HOMEOSTASIS per A.D.A. criteria. Hemoglobin (Bld) [Mass/Vol] 14.6 g/dL 12.0-15.0 [facility] Monocytes/100 WBC (Bld) 8.1 % 0-10 [facility] Neutrophils (Bld) [#/Vol] 4.3 10*3/uL 2.0-7.7 [facility] Neutrophils/100 WBC (Bld) 61.7 % 47-70 [facility] Potassium [Moles/Vol] 3.6 mmol/L 3.5-5.1 [facility] Protein [Mass/Vol] 7.8 g/dL 6.4-8.2 [facility] Sodium [Moles/Vol] 138 mmol/L 136-145 [facility] Triglyceride [Mass/Vol] 274 mg/dL <199 [facility] Comment on above: The drugs N-Acetylcy steine and Metamizole may falsely depress this assay.Serum Triglycerides Reference Interval Normal <150 mg/dL Borderline high 150 - 199 mg/dL High 200 - 499 mg/dL Very High > or = 500 mg/dL WBC (Bld) [#/Vol] 7.0 10*3/uL 4.4-11.0 [facility] Determination of erythrocyte mean corpuscular volume (MCV)Ordered By: Jovani Oliva on 12-31-2023 MCV (RBC) [Entitic vol] 89.7 fL 81-99 [facility] Erythrocyte distribution wid th ratioOrdered By: [facility] 12-31-2023 Erythrocyte distribution width (RBC) [Ratio] 13.2 % 11.6-14.6 [facility] Erythrocyte distribution wid th standard deviationOrdered By: [facility] on 12-31-2023 Erythrocyte distribution width (RBC) [Entitic vol] 43.5 fL 35.1-43.9 [facility] Hematocrit Auto (Bld) [Volum e fraction]Ordered By: [facility] 12-31-2023 Hematocrit (Bld) [Volume fraction] 43.4 % 37-47 [facility] Immature granulocytes/100 WB C Auto (Bld)Ordered By: [facility] on 12-31-2023 Immature granulocytes/100 WBC (Bld) 0.300 % 0.0-0.9 [facility] Comment on above: IG% - Immature Granu locytes (promyelocytes, myelocytes and metamyelocytes) > 1% indicates that a LEFT SHIFT is Present. Laboratory - Chemistry and C hemistry - challengeOrdered By: [facility] on 12-31-2023 Albumin/Globulin [Mass ratio] 0.9 {ratio} 0.9-2.4 [facility] ALP [Catalytic activity/Vol] 81 U/L 45-117 [facility] ALT [Catalytic activity/Vol] 27 U/L 13-56 [facility] Cholesterol in HDL [Mass/Vol] 40 mg/dL >40 [facility] Comment on above: The drugs N-Acetylcy steine and Metamizole may falsely depress this assay. Reference Range HDL <40 mg/dL Low HDL Cholesterol HDL >or= 60 mg/dL High HDL Cholesterol Cholesterol in LDL [Mass/Vol] 180 mg/dL 0-130 [facility] CO2 [Moles/Vol] 28.0 mmol/L 21.0-32.0 [facility] Globulin (S) [Mass/Vol] 4.2 g/dL 2.2-4.2 [facility] Urea nitrogen/Creatinine [Mass ratio] 19.6 mg/mg 10-20 [facility] - Hematology and Cell countsOrdered By: Jovani Oliva on 12-31-2023 MCH (RBC) [Entitic mass] 30.2 pg 27.0-32.0 [facility] MCHC (RBC) [Mass/Vol] 33.6 g/dL 32-36 [facility] Nucleated RBC/100 WBC (Bld) [Ratio] 0 % 0-5 [facility] Platelet mean volume (Bld) [Entitic vol] 8.5 fL 6.2-12.0 [facility] Platelets (Bld) [#/Vol] 336 10*3/uL 150-450 [facility] No Panel InformationOrdered By: Jovani Oliva on 12-31-2023 Estimated GFR (MDRD) Amer 71 mL/min >60 [facility] Comment on above: GFR Calc Estimated GFR (MDRD) Non-Af Amer 59 mL/min >60 [facility] Comment on above: Non- GFR Calc Vitamin D 25-Hydroxy 49.5 ng/mL [facility] Comment on above: Vitamin D 25(OH) Sta tus Range Deficiency <20 ng/mL (50nmol/L) Insufficiency 20 - 30 ng/mL (50 - 75 nmol/L) Sufficiency 30 - 100 ng/mL (75 - 250 nmol/L) Toxicity >100 ng/mL (>250 nmol/L) VLDL Cholesterol 55 mg/dL 5-40 [facility] RBC Auto (Bld) [#/Vol]Ordere d By: Jovani Oliva on 12-31-2023 RBC (Bld) [#/Vol] 4.84 10*6/uL 4.2-5.[address] [facility] Serum or plasma calcium oneyda urement (mass/volume)Ordered By: Jovani Oliva on 12-31-2023 Calcium [Mass/Vol] 10.1 mg/dL 8.5-10.1 [facility] Serum or plasma creatinine m easurement (mass/volume)Ordered By: Jovani Oliva on 12-31-2023 Creatinine [Mass/Vol] 0.97 mg/dL 0.55-1.02 [facility] Comment on above: The validity of the calculated GFR & GFRAA in patients over 70 years has not been determined. Clinical correlation is essential. Serum or plasma thyroid stim ulating hormone (TSH) measurement (units/volume)Ordered By: Jovani Oliva on 12-31-2023 TSH Qn 3.36 uIU/mL 0.358-3.74 [facility] Serum or plasma urea nitroge n measurement (mass/volume)Ordered By: Jovani Oliva on 12-31-2023 Urea nitrogen [Mass/Vol] 19 mg/dL 7-18 [facility] Thin prep Papanicolaou smear with manual screeningOrdered By: Jovani Oliva on 12-31-2023 Thin prep Papanicolaou smear with manual screening 3.6 g/dL 3.2-5.0 [facility] Thin prep Papanicolaou smear with manual screening 22 U/L 15-37 [facility] Thin prep Papanicolaou smear with manual screening 5 5-15 [facility] CNPNon 11-08-2023 [facility] Telephone (UROChengWS) ----- KAVEH PORTILLO ([id number]) 1945 F Date Time Provider Department 11/08/23 COLIN PARMAR During your visit today, we recorded the following information about you: Katiana Chakraborty LPN 11/08/2023 4:50 PM Signed Called patient. Verified name and date of . States she has not had a UTI in over a year and is actually coming in for leakage. Patient upset about being ask for previous providers so that Colin Parmar PA-C can review because she is new to area and doesn't see why it is relevant. [place] and unknown name of providers in [place] that didn't help much anyways. I did explain to patient of importance of having records so that Colin can see what has and has not been done- verbalized understanding. Patient provided with phone and fax number. 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 alternate sectionGoals may be documented in an alternate sectionGoals may be documented in an alternate sectionGoals may be documented in an alternate sectionGoals may be documented in an alternate section Care Teams (unrecognized sec tion and content) Team Status: Active Member Role Status Dates BE ATHER Family Provider Active Dr. Babatunde Pavon MD Primary Care Provider Active Team Status: Inactive Member Role Status Dates Dr. Babatunde Pavon MD Primary Care Provider, Referring Provider Active Demarcus GENAO, PA Attending Provider Active Team Status: Inactive Member Role Status Dates Dr. Babatunde Pavon MD Primary Care Provi maribel, Attending Provider, Referring Provider Active Team Status: Inactive Member Role Status Dates Dr. Babatunde Pavon MD Primary Care Provider Active Dr. Jovani Oliva MD Attending Provider Active Team Status: Active Member Role Status Dates Dr. Babatunde Pavon MD Primary Care Provider Active Dr. Jovani Oliva MD Attending Provider Active Team Status: Active Member Role Status Dates BE MARTINEZ Family Provider Active Dr. Jovani Oliva MD Primary Care Provider Active Team Status: Inactive Member Role Status Dates Dr. Jovani Oliva MD Primary Care Provi maribel, Attending Provider, Referring Provider Active Team Status: Active Member Role Status Dates BEJose Angel MARTINEZ Family Provider Active Dr. Eduardo Baez MD Primary Care Provider Active Team Status: Inactive Member Role Status Dates Dr. Jovani Oliva MD Primary Care Provider Active Start: October 31, 2024 End: October 31, 2024 Dr. Jovani Oliva MD Referring Provider Active Start: October 31, 2024 End: October 31, 2024 TOSIN Lopes Attending Provider Active Start: October 31, 2024 End: October 31, 2024 Team Status: Inactive Member Role Status Dates Dr. Jovani Oliva MD Primary Care Provider Active Start: November 06, 2024 End: November 06, 2024 Dr. Jovani Oliva MD Attending Provider Active Start: November 06, 2024 End: November 06, 2024 Team Status: Inactive Member Role Status Dates Dr. Jovani Oliva MD Primary Care Provider Active Start: November 10, 2024 End: November 10, 2024 Dr. Jovani Oliva MD Attending Provider Active Start: November 10, 2024 End: November 10, 2024 Team Status: Inactive Member Role Status Dates Dr. Jovani Oliva MD Primary Care Provider Active Start: December 19, 2024 End: December 19, 2024 Dr. Jovani Oliva MD Referring Provider Active Start: December 19, 2024 End: December 19, 2024 Demarcus GENAO, PA Attending Provider Active Sta rt: December 19, 2024 End: December 19, 2024 Team Status: Inactive Member Role Status Dates Dr. Eduardo Baez MD Primary Care Provider Active Start: December 30, 2024 End: December 30, 2024 Dr. Eduardo Baez MD Attending Provider Active Start: December 30, 2024 End: December 30, 2024 Dr. Eduardo Baez MD Referring Provider Active Start: December 30, 2024 End: December 30, 2024 Team Status: Inactive Member Role Status Dates Dr. Eduardo Baez MD Primary Care Provider Active Start: March 11, 2025 End: March 11, 2025 Dr. Eduardo Baez MD Attending Provider Active Start: March 11, 2025 End: March 11, 2025 Dr. Eduardo Baez MD Referring Provider Active Start: March 11, 2025 End: March 11, 2025 Team Status: Active Member Role Status Dates Dr. Eduardo Baez MD Primary Care Provider Active Team Status: Inactive Member Role Status Dates Dr. Eduardo Baez MD Primary Care Provider Active Start: March 19, 2025 End: March 19, 2025 Paulo Cabezas [employer], [employer] Attending Provider Active Start: March 19, 2025 End: March 19, 2025 Paulo Cabezas [employer], [employer] Referring Provider Active Start: March 19, 2025 End: March 19, 2025 Team Status: Inactive Member Role Status Dates Dr. Eduardo Baez MD Primary Care Provider Active Start: April 04, 2025 End: April 04, 2025 Paulo Cabezas [employer], [employer]ARD-[employer] Attending Provider Active Start: April 04, 2025 End: April 04, 2025 Paulo Cabezas [employer] GUARD, [employer] Referring Provider Active Start: April 04, 2025 End: April 04, 2025 INFORMATION SOURCE (unrecogn ized section and content) DATE CREATED AUTHOR 11/13/2023 [facility] DATE CREATED AUTHOR AUTHOR'S SAIDA GEE 06/01/2025 [facility] FOR RECORDS PERTAINING TO PATIENTS WHO ARE [...] BE BASED ON THE PRIMARY CLINICAL RECORDS. [facility]. provides no warranty or guarantee of the accuracy or completeness of information in this document.
== END | disposition home or self-care (01) ==
LOC: MFPLAB 16:33
PROVIDERS: PCP Family Medicine
DX: R42 Dizziness and giddiness (principal)
CPT/HCPCS: 36415; 80053; 85025